=== PATIENT | female | born 1985 | race Caucasian/White ===

== ENCOUNTER 2017-11-12 17:10 | Emergency (ER) | payer MEDICAID, SELFPAY ==
[2017-11-12 17:11] VITALS: BP 165/116; PULSE 99; RESP 16; TEMP 37.1; O2SAT 95; BMI 60.7
[2017-11-12 17:39] LABS: Bacteria 0 SEEN /hpf (None Seen); Mucous, Urine 0 SEEN /hpf (<or=2+); Red Blood Cells-Urine 0 SEEN /hpf (0-5); White Blood Cells 0 SEEN /hpf (0-5)
[2017-11-12 17:40] LABS: Color, Urine Yellow (Yellow); Glucose, Dipstick Normal (Normal); Ketone-Dipstick Negative (Negative); Leukocyte Esterase-Dipstick Negative /ul (Negative); Nitrite-Dipstick Negative (Negative); Occult Blood-Urine Negative /ul (Negative); Protein-Dipstick Negative (Negative); Specific Gravity, Urine 1.015 (1.002-1.030); Urine Bilirubin Dipstick Negative (Negative); Urine Clarity Cloudy (Clear); Urine Urobilinogen Normal (Normal)
[2017-11-12 17:43] LABS: Absolute Lymphocyte Count 1.75 X10^3/ul (0.83-4.51); Basophil# 0.04 X10^3/uL; Basophil% 0.3 % (0-1); Eosinophil# 0.19 X10^3/uL; Eosinophils% 1.4 % (0-5); Hematocrit 44.3 % (37-47); Hemoglobin 14.9 g/dl (12.0-15.0); Lymphocyte # 1.75 X10^3/ul (4.0); Lymphocyte % 12.9 % (19-41); Mean Corp Hgb Conc 33.6 g/gl (32-36); Mean Corpuscular Hgb 28.8 pg (27.0-32.0); Mean Corpuscular Volume 85.7 fL (81-99); Mean Platelet Vol. 10.4 fl (6.2-12.0); Monocyte# 0.64 X10^3/uL; Monocyte% 4.7 % (0-10); Neutrophil # 10.95 X10^3/uL (2.7-7.7); Neutrophil % 80.5 % (47-70); Platelet Count 273 K/mm3 (150-450); RBC Distribution Width CV 13.3 % (11.6-14.6); Red Blood Count 5.17 M/mm3 (4.2-5.4); White Blood Count 13.6 K/mm3 (4.4-11.0)
[2017-11-12 17:45] LABS: POSITIVE COUNT NO; POSITIVE DIFFERENTIAL NO; POSITIVE MORPHOLOGY NO
[2017-11-12 17:53] LABS: Anion Gap 9 (5-15); BUN 12 mg/dL (7-18); BUN/Creat Ratio 12.3 RATIO (10-20); Chloride 101 mmol/L (98-107); Creatinine, Serum 0.98 mg/dL (0.55-1.02); EST Glomerular Filtration Rate 71 mL/min (>60); Est Glom Filt Rate - Afr Amer 86 mL/min (>60); Estimated Creatinine Clearance 66.39 ml/min; Glucose 125 mg/dL (74-106); Potassium 3.9 mmol/L (3.5-5.1); Sodium Level 139 mmol/L (136-145)
[2017-11-12 18:06] LABS: Pregnancy, Serum, hCG Quali. NEGATIVE Negative (0-9 Nonpreg)
[2017-11-12 18:10] LABS: Amorphous Sediment 3+ PHOS; Squamous Epithelial Cells - UA 10-25 SEEN /hpf (5-10)
--- NOTE | 2017-11-12 18:13 | CT_ITS ---
STUDY: CT ABDOMEN AND PELVIS WITH CONTRAST REASON FOR EXAM: Female, 32 years old. Right-sided abdominal pain RADIATION DOSAGE (If Supplied By Facility): CTDIvol = ( 20.40 ) mGy, DLP = ( 1328.21 ) mGycm TECHNIQUE: Transaxial images were obtained from the dome of the diaphragm to the symphysis pubis without oral contrast. 100ml ml of Isovue 300 contrast was administered. Sagittal and coronal images were reconstructed. Individualized dose optimization techniques were used for this CT. COMPARISON: December 10, 2012 FINDINGS: The visualized lung bases are unremarkable. The visualized portions of the heart are within normal limits. Normal liver. Normal gallbladder and extrahepatic biliary system. Normal spleen. Normal pancreas. Normal bilateral adrenal glands. Normal right kidney. Normal left kidney. Normal visualized stomach. Normal small intestine. Normal colon. The appendix is visualized and appears normal. Oral contrast noted within the small bowel. Normal abdominal aorta. Normal inferior vena cava. Normal retroperitoneum. Normal urinary bladder. Uterus normal. 3.2 cm left adnexal cyst. Normal abdominal wall. Normal osseous structures. CT/Abdomen/Pelvis WITH Contrast IMPRESSION: Left adnexal cyst. Otherwise no acute disease. Electronically Signed: Cliff Kingsley MD at 20:28 EDT , Service support ,
[2017-11-12] MEDS: Ketorolac 30 MG/ML Syringe IV (18:27)
[2017-11-12] MEDS: 0.9% Normal Saline 1,000 ML 1000 ML IV (18:27)
[2017-11-12] MEDS: Ondansetron 4 MG/2 ML Vial IV (18:27)
[2017-11-12 18:41] LABS: AST(SGOT) 12 U/L (15-37); Alanine Aminotransfer ALT/SGPT 23 U/L (13-56); Albumin, Serum 2.9 g/dL (3.2-5.0); Alkaline Phosphatase 115 U/L (45-117); Bilirubin, Direct 0.08 mg/dL (0.00-0.30); Globulin 4.5 g/dL (2.2-4.2); Protein, Total 7.4 g/dL (6.4-8.2)
[2017-11-12 20:22] VITALS: BP 131/77; PULSE 89; RESP 16; O2SAT 97
--- NOTE | 2017-11-12 20:41 | ED.VISSUMM ---
- ER Visit Summary Date of Service: 11/12/17 Chief Complaint: Abdominal pain History of Present Illness: The patient is a [address] Ford. She reports that she has right-sided abdominal pain began this morning. Is gradually increasing. It is a sharp, burning pain. Is 10 at 10 worsening a 10 currently. Is worsened by movement and food periods relieved by nothing. She has been nausea and vomited twice. No blood or emesis. No diarrhea. Last bowel movement was today. No melena or hematochezia. No dysuria or frequency. Physical Examination: Vitals: Stable. Afebrile. General: Well-nourished and well-developed. Head: Normocephalic atraumatic. Neck: Supple, no lymphadenopathy. No JVD. Nontender. Cardiovascular: Regular rate and rhythm. No murmurs. Respiratory: No respiratory distress. Clear to auscultation bilaterally. Abdominal: Soft, mild tenderness palpation the right upper and right lower quadrants, nondistended, normal bowel sounds. No guarding, rebound, or peritoneal signs. Back: Nontender. Extremities: Nontender, no edema. Skin: Normal color, no rash. Neurologic: Alert and oriented ?3. Cranial nerves II through XII are intact. Normal strength and sensation. Psych: Normal affect. Test Results: CBC is marked for white count of 13.6 with 81 segmented neutrophils and 13 lymphocytes. Chem-7 is more for glucose 125. LFTs marked for an AST of 12. Albumin is 2.9 globulin is 4.5. UA is negative. Parents test is negative. CT abdomen pelvis. IV contrast shows a normal appendix. She does have a 3.2 cm left adnexal cyst. However, her pain is on the right. Emergency Department Course and Treatment: Patient was treated with Toradol and Zofran IV. She is resting comfortably. Treatment Plan: Patient be discharged with Zofran and Bentyl. Instructed follow-up Dr. Ford as previously scheduled. Disposition: To home in improved and stable condition. Impression: 1. Abdominal pain, uncertain cause. This note was generated with [employer] software. It may contain incorrect words, spelling, and punctuation that were not noted in review of the chart prior to signing ED Disposition - Plan for ED Patient: Disposition: Home or Assisted Living Chief Complaint: Abd Pain Instructions: ED Abdominal Pain Unkn Cause Prescriptions: Ondansetron [Zofran Odt] 4 mg PO Q8H PRN PRN #10 tablet PRN Reason: Nausea Dicyclomine HCl [Bentyl] 20 mg PO TIDAC #20 capsule Referrals: Misbah Ford DO [Primary Care Provider] - 1-2 Days if not improving
[2017-11-12 20:56] VITALS: BP 129/77; PULSE 83; RESP 16; O2SAT 97
== END 2017-11-12 20:57 | disposition home or self-care (01) ==
LOC: ED 18:29
PROVIDERS: Emergency Provider Emergency Medicine; Family Provider Student in an Organized Health Care Education/Training Program; PCP Student in an Organized Health Care Education/Training Program
DX: R10.11 Right upper quadrant pain (principal); R10.31 Right lower quadrant pain; N83.202 Unspecified ovarian cyst, left side; M79.7 Fibromyalgia; M19.90 Unspecified osteoarthritis, unspecified site; Z79.51 Long term (current) use of inhaled steroids; Z79.899 Other long term (current) drug therapy
CPT/HCPCS: 74177; 80048; 80076; 81001; 84703; 85025; 96361; 96374; 96375; 99283; J7030; Q9967; A4216; J2405

== ENCOUNTER → 2017-11-19 08:43 | Outpatient (CLI) | payer MEDICAID, SELFPAY ==
--- NOTE | 2017-11-19 08:45 | RAD_ITS ---
STUDY: AIR-CONTRAST UPPER JUST SERIES AND SMALL BOWEL FOLLOW-THROUGH. REASON FOR EXAM: Female, 32 years old. Abdominal pain with nausea. FLUOROSCOPY TIME (if supplied): (1:44) minutes/seconds TECHNIQUE: The patient ingested barium. Multiple images of the esophagus, stomach and duodenum were obtained. Following this, a small bowel follow-through examination was performed. COMPARISON: None. FINDINGS: The esophagus is unremarkable. There is no evidence of gastroesophageal reflux. No mass lesion is seen. The stomach and duodenum are unremarkable. A small bowel follow-through examination was performed. There is no evidence of intrinsic or extrinsic small bowel disease. The terminal ileum is unremarkable. RAD/Upper GI/w Small Bowel IMPRESSION: Unremarkable upper GI series and small bowel follow-through examination. Electronically Signed: Christophe Driscoll MD at 15:49 EDT Tel [phone], Service support ,
== END ==
PROVIDERS: Family Provider Student in an Organized Health Care Education/Training Program; PCP Student in an Organized Health Care Education/Training Program; Visit Provider Student in an Organized Health Care Education/Training Program
DX: K21.0 Gastro-esophageal reflux disease with esophagitis (principal); R10.13 Epigastric pain; R11.0 Nausea
CPT/HCPCS: 74249

== ENCOUNTER 2018-08-15 15:20 | Emergency (ER) | payer MEDICAID, SELFPAY ==
[2018-07-21 17:09] VITALS: BMI 60.7
[2018-08-15 15:22] VITALS: BP 161/101; PULSE 91; RESP 18; TEMP 36.8; O2SAT 98; BMI 64.0
[2018-08-15 16:12] LABS: Mucous, Urine 0 SEEN /hpf (<or=2+); Red Blood Cells-Urine 0 SEEN /hpf (0-5)
--- NOTE | 2018-08-15 16:25 | CT_ITS ---
STUDY: CT ABDOMEN AND PELVIS WITHOUT CONTRAST REASON FOR EXAM: Female, 33 years old. Left flank pain RADIATION DOSAGE (If Supplied By Facility): CTDIvol = ( 24.18 ) mGy, DLP = ( 1316.88 ) mGycm TECHNIQUE: Transaxial images were obtained from the dome of the diaphragm to the symphysis pubis without oral contrast, and without intravenous contrast. Sagittal and coronal images were reconstructed. Individualized dose optimization techniques were used for this CT. COMPARISON: November 12, 2017. FINDINGS: The visualized lung bases are unremarkable. The visualized portions of the heart are within normal limits. Normal liver. Nonvisualization of the gallbladder. No dilatation of the extrahepatic biliary system. Normal spleen. Normal pancreas. Normal bilateral adrenal glands. Normal right kidney. Punctate stone in the left kidney. Normal visualized stomach. Normal small intestine. Normal colon. The appendix is visualized and appears normal. Normal abdominal aorta. Normal inferior vena cava. Normal retroperitoneum. Normal urinary bladder. Possible 1 cm left ovarian cystic lesion. Normal abdominal wall. Normal osseous structures. CT/Abdomen/Pelvis without Cont IMPRESSION: Nonobstructive punctate left renal stone. Possible 1 cm left ovarian cystic nodule. Electronically Signed: Sebastian Carlisle DO at 18:17 EST Tel [phone], Service support ,
--- NOTE | 2018-08-15 16:27 | ED.DCSUM_ITS ---
- ER Visit Summary Date of Service: 08/15/18 Chief Complaint: Abdominal pain History of Present Illness: The patient is a 33 F who has had 15 days of intermittent abdominal pain. She describes sharp pains in her right abdomen that radiates over to the left. The pain is now diffuse. Nothing seems to make this pain better or worse. She has had nausea and vomiting for the past couple of days. She denies diarrhea or constipation. She states she does have dysuria. She saw her PCP who did a urinalysis and they said she had blood when the culture came back they told her that she needed no medications. She took nothing for the pain today. She does have a history of kidney stones. Physical Examination: Vital signs reviewed. HEENT exam unremarkable. Heart is regular rate and rhythm without murmurs. Lungs are clear to auscultation. Abdomen is soft with diffuse tenderness. There is no guarding or rebound tenderness. Extremities reveal no edema. Skin exam normal. Neurologic exam normal. Test Results: Laboratory studies unremarkable except for glucose of 112. Urinalysis is negative for infection or blood. HCG negative. CAT scan of the abdomen and pelvis reveals a punctate left renal stone with a small left ovarian cyst. Emergency Department Course and Treatment: Patient was medicated with Toradol and Zofran. Her pain is better but she is still feeling nauseous. I will give her Phenergan. I do not feel that this is a kidney stone causing her pain. Her pain is more general. I will give her Bentyl and Phenergan for home. She will need to follow-up with her PCP Treatment Plan: [] Disposition: Discharge Impression: Abdominal pain This note was generated with [employer] dictation software. It may contain incorrect words, spelling, and punctuation that were not noted in review of the chart prior to signing ED Disposition - Plan for ED Patient: Referrals: Misbah Ford DO [Primary Care Provider] -
[2018-08-15 16:34] LABS: Color, Urine Yellow (Yellow); Glucose, Dipstick Normal (Normal); Ketone-Dipstick Negative (Negative); Leukocyte Esterase-Dipstick 25 /ul (Negative); Nitrite-Dipstick Negative (Negative); Occult Blood-Urine 50 /ul (Negative); Protein-Dipstick 15 mg/dl (Negative); Urine Bilirubin Dipstick Negative (Negative); Urine Clarity Clear (Clear); Urine Urobilinogen Normal (Normal)
[2018-08-15] MEDS: 0.9% Normal Saline 1,000 ML 999 ML IV (16:45)
[2018-08-15] MEDS: Ketorolac 30 MG/ML Syringe IV (16:45)
[2018-08-15] MEDS: Ondansetron 4 MG/2 ML Vial IV (16:45)
[2018-08-15 16:47] LABS: Squamous Epithelial Cells - UA 5-10 SEEN /hpf (5-10); White Blood Cells 5-10 SEEN /hpf (0-5)
[2018-08-15 16:48] LABS: Amorphous Sediment 2+; Bacteria 1+ /hpf (None Seen)
[2018-08-15 17:13] LABS: Absolute Lymphocyte Count 2.55 X10^3/ul (0.83-4.51); Basophil# 0.05 X10^3/uL; Basophil% 0.5 % (0-1); Eosinophil# 0.16 X10^3/uL; Eosinophils% 1.6 % (0-5); Hematocrit 44.6 % (37-47); Hemoglobin 14.8 g/dl (12.0-15.0); Lymphocyte # 2.55 X10^3/ul (4.0); Lymphocyte % 24.8 % (19-41); Mean Corp Hgb Conc 33.2 g/gl (32-36); Mean Corpuscular Hgb 28.5 pg (27.0-32.0); Mean Corpuscular Volume 85.9 fL (81-99); Mean Platelet Vol. 10.9 fl (6.2-12.0); Monocyte# 0.45 X10^3/uL; Monocyte% 4.4 % (0-10); Neutrophil # 7.04 X10^3/uL (2.7-7.7); Neutrophil % 68.5 % (47-70); Platelet Count 261 K/mm3 (150-450); RBC Distribution Width CV 13.7 % (11.6-14.6); RBC Distribution Width SD 42.9 fl (35.1-43.9); Red Blood Count 5.19 M/mm3 (4.2-5.4); White Blood Count 10.3 K/mm3 (4.4-11.0)
[2018-08-15 17:19] LABS: POSITIVE COUNT NO; POSITIVE DIFFERENTIAL NO; POSITIVE MORPHOLOGY NO
[2018-08-15 17:24] LABS: AST(SGOT) 18 U/L (15-37); Alanine Aminotransfer ALT/SGPT 36 U/L (13-56); Albumin, Serum 3.3 g/dL (3.2-5.0); Alkaline Phosphatase 116 U/L (45-117); Anion Gap 8 (5-15); BUN 10 mg/dL (7-18); BUN/Creat Ratio 11.1 RATIO (10-20); Bilirubin, Direct 0.16 mg/dL (0.00-0.30); Calcium,Total 8.8 mg/dL (8.5-10.1); Chloride 104 mmol/L (98-107); EST Glomerular Filtration Rate 77 mL/min (>60); Est Glom Filt Rate - Afr Amer 93 mL/min (>60); Estimated Creatinine Clearance 71.63 ml/min; Globulin 4.5 g/dL (2.2-4.2); Glucose 112 mg/dL (74-106); Lipase 91 U/L (73-393); Potassium 3.8 mmol/L (3.5-5.1); Protein, Total 7.8 g/dL (6.4-8.2); Sodium Level 140 mmol/L (136-145)
[2018-08-15 17:42] LABS: Pregnancy, Serum, hCG Quali. NEGATIVE Negative (0-9 Nonpreg)
--- NOTE | 2018-08-15 18:31 | ED.DEP ---
ED Disposition - Plan for ED Patient: Disposition: Home or Assisted Living Instructions: ED Abdominal Pain Unkn Cause Prescriptions: proMETHazine tablet [Phenergan] 25 mg PO Q6H PRN PRN #10 tab PRN Reason: Nausea Dicyclomine HCl [Bentyl] 20 mg PO TIDAC #20 cap Referrals: Misbah Ford DO [Primary Care Provider] -
[2018-08-15] MEDS: proMETHazine 25 MG/ML Syringe 12.5 MG IV (19:03)
[2018-08-15 19:07] VITALS: BP 117/72; PULSE 72; RESP 16; O2SAT 94
== END 2018-08-15 19:17 | disposition home or self-care (01) ==
PROVIDERS: Emergency Provider Emergency Medicine; Family Provider Student in an Organized Health Care Education/Training Program; PCP Student in an Organized Health Care Education/Training Program
DX: R10.84 Generalized abdominal pain (principal); Z87.442 Personal history of urinary calculi; Z79.84 Long term (current) use of oral hypoglycemic drugs; Z79.899 Other long term (current) drug therapy
CPT/HCPCS: 74176; 80048; 80076; 81001; 83690; 84703; 85025; 96361; 96374; 96375; 99283; J7030; A4216; J2405

== ENCOUNTER → 2018-09-22 17:07 | Outpatient (CLI) | payer MEDICAID, SELFPAY ==
[2018-09-22 15:30] VITALS: BMI 64.0
[2018-09-26 17:01] LABS: HPV APTIMA, High Risk Negative (Negative)
== END ==
PROVIDERS: Family Provider Student in an Organized Health Care Education/Training Program; PCP Student in an Organized Health Care Education/Training Program; Referring Provider Obstetrics & Gynecology; Visit Provider Obstetrics & Gynecology
DX: Z12.4 Encounter for screening for malignant neoplasm of cervix (principal)
CPT/HCPCS: 87624; 88175; G0145

== ENCOUNTER 2018-10-17 16:49 | Emergency (ER) | payer MEDICAID, SELFPAY ==
[2018-09-22 15:30] VITALS: BMI 64.0
[2018-10-17 16:50] VITALS: BP 152/110; PULSE 118; RESP 20; TEMP 36.9; O2SAT 98; BMI 63.8
--- NOTE | 2018-10-17 16:59 | ED.RN ---
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 STATES SHE DIDN'T TAKE HER BENTYL OR PHENERGAN OR ANY OTHER MEDS THAT SHE HAD AT HOME.
--- NOTE | 2018-10-17 17:11 | CT_ITS ---
STUDY: CT ABDOMEN AND PELVIS WITH CONTRAST REASON FOR EXAM: Female, 33 years old. Upper abdominal pain RADIATION DOSAGE (If Supplied By Facility): CTDIvol = ( 23.73 ) mGy, DLP = ( 1385.93 ) mGycm TECHNIQUE: Transaxial images were obtained from the dome of the diaphragm to the symphysis pubis with oral contrast. 100,ml IV/Oral Isovue 370 was administered. Sagittal and coronal images were reconstructed. Individualized dose optimization techniques were used for this CT. COMPARISON: 08/15/2018 FINDINGS: The visualized lung bases are unremarkable. The visualized portions of the heart are within normal limits. Normal liver. There is non-visualization of the gallbladder, which may be secondary to either contraction or a prior cholecystectomy. Normal spleen. Normal pancreas. Normal bilateral adrenal glands. Normal right kidney. Normal left kidney. There is a small hiatal hernia. Normal small intestine. Normal colon. The appendix is visualized and appears normal. Normal abdominal aorta. Normal inferior vena cava. Normal retroperitoneum. Normal urinary bladder. Normal visualized uterus. Normal abdominal wall. Normal osseous structures. CT/Abdomen/Pelvis WITH Contrast IMPRESSION: Normal enhanced CT of the abdomen and pelvis. Electronically Signed: Danny Cornejo DO at 19:14 EDT Tel , Service support ,
[2018-10-17] MEDS: Morphine 4 MG/ML Syringe IV (17:31)
[2018-10-17] MEDS: 0.9% Normal Saline 1,000 ML 125 ML IV (17:31)
[2018-10-17] MEDS: Ondansetron 4 MG/2 ML Vial IV (17:32)
[2018-10-17 17:53] LABS: Absolute Lymphocyte Count 2.34 X10^3/ul (0.83-4.51); Absolute Neutrophil Count 9.4 X10^3/uL (2.0-7.7); Basophil# 0.05 X10^3/uL; Basophil% 0.4 % (0-1); Eosinophils% 1.6 % (0-5); Hematocrit 44.4 % (37-47); Hemoglobin 14.8 g/dl (12.0-15.0); Lymphocyte # 2.34 X10^3/ul (4.0); Lymphocyte % 18.8 % (19-41); Mean Corp Hgb Conc 33.3 g/gl (32-36); Mean Corpuscular Hgb 27.9 pg (27.0-32.0); Mean Corpuscular Volume 83.6 fL (81-99); Mean Platelet Vol. 10.1 fl (6.2-12.0); Monocyte# 0.45 X10^3/uL; Monocyte% 3.6 % (0-10); Neutrophil % 75.4 % (47-70); POSITIVE COUNT NO; POSITIVE DIFFERENTIAL NO; POSITIVE MORPHOLOGY NO; Platelet Count 307 K/mm3 (150-450); RBC Distribution Width CV 13.7 % (11.6-14.6); RBC Distribution Width SD 41.7 fl (35.1-43.9); Red Blood Count 5.31 M/mm3 (4.2-5.4); White Blood Count 12.5 K/mm3 (4.4-11.0)
[2018-10-17 17:59] LABS: ALB/GLOB Ratio 0.7 RATIO (0.9-2.4); AST(SGOT) 23 U/L (15-37); Alanine Aminotransfer ALT/SGPT 33 U/L (13-56); Albumin, Serum 3.2 g/dL (3.2-5.0); Alkaline Phosphatase 122 U/L (45-117); Anion Gap 6 (5-15); BUN 10 mg/dL (7-18); BUN/Creat Ratio 11.1 RATIO (10-20); Calcium,Total 9.1 mg/dL (8.5-10.1); Chloride 102 mmol/L (98-107); EST Glomerular Filtration Rate 77 mL/min (>60); Est Glom Filt Rate - Afr Amer 93 mL/min (>60); Estimated Creatinine Clearance 71.63 ml/min; Globulin 4.6 g/dL (2.2-4.2); Glucose 157 mg/dL (74-106); Lipase 113 U/L (73-393); Potassium 3.8 mmol/L (3.5-5.1); Protein, Total 7.8 g/dL (6.4-8.2); Sodium Level 139 mmol/L (136-145)
--- NOTE | 2018-10-17 18:15 | ED.RN ---
LACTIC 3.[address] LAB[address] DR WYMAN AWARE
[2018-10-17 18:16] LABS: Lactic Acid 3.2 mmol/L (0.4-2.0)
[2018-10-17 18:20] LABS: Mucous, Urine 0 SEEN /hpf (<or=2+); White Blood Cells 0 SEEN /hpf (0-5)
[2018-10-17 18:43] VITALS: PULSE 98; TEMP 36.8; O2SAT 95
[2018-10-17 18:52] LABS: Color, Urine Yellow (Yellow); Glucose, Dipstick Normal (Normal); Ketone-Dipstick Negative (Negative); Leukocyte Esterase-Dipstick Negative /ul (Negative); Nitrite-Dipstick Negative (Negative); Occult Blood-Urine 250 /ul (Negative); Protein-Dipstick 15 mg/dl (Negative); Urine Bilirubin Dipstick Negative (Negative); Urine Clarity Cloudy (Clear); Urine Urobilinogen Normal (Normal)
[2018-10-17 18:58] LABS: Amorphous Sediment 1+; Bacteria 4+ /hpf (None Seen); Red Blood Cells-Urine 0-5 SEEN /hpf (0-5); Squamous Epithelial Cells - UA 10-25 SEEN /hpf (5-10)
--- NOTE | 2018-10-17 19:31 | ED.DEP ---
ED Disposition - Plan for ED Patient: Instructions: ED Abdominal Pain Unkn Cause Prescriptions: Hydrocodone Bitart/Apap 5-325 [Freeburn 5MG-325MG] 1 tab PO Q4H PRN PRN 2 Days #10 tab PRN Reason: Pain Referrals: Misbah Ford DO [Primary Care Provider] - 3-5 Days
--- NOTE | 2018-10-17 19:32 | ED.DCSUM_ITS ---
- ER Visit Summary Date of Service: 10/17/18 Chief Complaint: [Abdominal pain] History of Present Illness: The patient is a 33 F [presents the emergency department abdominal pain that started yesterday. Patient describes, like a belt sensation being wrapped around the front of the abdomen radiating through to her back. She rates her pain currently as a 10 out of 10. Patient complains of nausea but no vomiting. She denies diarrhea. She denies blood in her stool or black tarry stool. Patient denies urinary symptoms. She is tells me she had a fever up to 101 at home. Patient states that she was treated for urinary tract infection 2 weeks ago. Patient has a history of type 2 diabetes as well as fibromyalgia, osteoarthritis, kidney stones, and irritable bowel syndrome. Patient has had prior cholecystectomy and prior C-sections. She is had her right ovary removed, uterine ablation, and bilateral salpingectomy.] Physical Examination: [HEENT-PERRLA, EOMI. Cranial nerves II through XII grossly intact. TMs clear. Mucous membranes moist. No adenopathy. Cardiovascular-regular rate and rhythm without murmur or ectopy Lungs-clear to auscultation, chest wall stable without crepitus or subcu emphysema Abdomen-normoactive bowel sounds, soft. Patient has some diffuse tenderness palpation. There is no rebound, rigidity, cranial signs. Extremities-intact ?4, normal range of motion, normal pulses, atraumatic] Test Results: [CBC with differential obtained showed an elevated white blood cell count of 12.5, hemoglobin 14.8, hematocrit 44, platelets 307. Chemistries unremarkable. LFTs were normal. Lipase was 113. Urinalysis was normal. Lactate was elevated 3.2. CT scan of the abdomen pelvis with IV and p.o. contrast ordered was normal.] Emergency Department Course and Treatment: [Patient was given morphine and Zofran and a liter normal same fluid bolus followed by second liter.] Treatment Plan: [Patient advised to take her Bentyl at home and I will write her a prescription for [place] for severe pain for 2 days.] Disposition: [Discharged home in stable condition. Patient advised to return if worsening pain, vomiting, or condition should worsen anyway.] Impression: [Abdominal pain-etiology uncertain.] This note was generated with [employer] software. It may contain incorrect words, spelling, and punctuation that were not noted in review of the chart prior to signing ED Disposition - Plan for ED Patient: Referrals: Misbah Ford DO [Primary Care Provider] -
[2018-10-17] MEDS: 0.9% Normal Saline 1,000 ML 999 ML IV (19:43)
[2018-10-17 20:16] VITALS: BP 124/70; PULSE 89; RESP 16; O2SAT 98
[2018-10-17 21:26] LABS: Reflex Lactate? Y
== END 2018-10-17 20:18 | disposition home or self-care (01) ==
LOC: ED 17:25
PROVIDERS: Emergency Provider Emergency Medicine; Family Provider Student in an Organized Health Care Education/Training Program; PCP Student in an Organized Health Care Education/Training Program
DX: R10.84 Generalized abdominal pain (principal); E11.9 Type 2 diabetes mellitus without complications; M79.7 Fibromyalgia; M19.90 Unspecified osteoarthritis, unspecified site; Z87.440 Personal history of urinary (tract) infections; Z87.442 Personal history of urinary calculi; Z79.84 Long term (current) use of oral hypoglycemic drugs
CPT/HCPCS: 74177; 80053; 81001; 83605; 83690; 85025; 96361; 96374; 96375; 99283; J7030; Q9967; A4216; J2405

== ENCOUNTER 2018-11-18 08:29 | Day surgery (SDC) | payer MEDICAID, SELFPAY ==
[2018-11-18] VITALS (7 sets, daily range): BP systolic 108–117; BP diastolic 72–84; PULSE 78–86; RESP 16–18; TEMP 36.6–37.6; O2SAT 91–98; BMI 61.4
[2018-11-18 09:12] LABS: Internal QC Validated? YES +Cl - CLEAR BKGD
[2018-11-18 09:14] LABS: Pregnancy, Urine Negative Negative
--- NOTE | 2018-11-18 09:22 | PCM.DC.URO ---
Discharge Diet: No Restrictions Discharge Activity: Return to Normal Activity, May not drive while taking narcotic pain medications. Call your doctor if you observe: Fever of 101 or Higher, Inability to urinate, Inability to have a bowel movement, Shortness of breath, Chest pain, Calf discomfort, Uncontrolled pain Allergies/Adverse Reactions: Allergies cephalexin Allergy (Verified 11/17/18 13:32) Itching duloxetine [From Cymbalta] Adverse Reaction (Verified 11/17/18 13:32) Other fluoxetine [From Prozac] Adverse Reaction (Verified 11/17/18 13:32) HALLUCINATIONS Medications to take at Discharge Celecoxib [Celebrex] 100 mg PO BID 02/17/16 Cetirizine HCl [Zyrtec] 10 mg PO DAILY 02/17/16 Cyclobenzaprine [Flexeril] 10 mg PO TID PRN PRN 02/17/16 Lorazepam [Ativan] 0.5 mg PO BID PRN PRN 02/17/16 Sertraline HCl [Zoloft] 50 mg PO DAILY 02/17/16 buPROPion SR [Wellbutrin Sr] 150 mg PO BID 02/17/16 Cholecalciferol (Vitamin D3) [Vitamin D3] 2,000 unit PO DAILY 11/12/17 norgestimate 0.25 mg-ethinyl estradiol 35 mcg tablet 1 tab PO QDAY #28 tab 07/21/18 Dicyclomine HCl [Bentyl] 20 mg PO TIDAC 08/15/18 proMETHazine tablet [Phenergan] 25 mg PO Q6H PRN PRN #10 tab 08/15/18 Budesonide/Formoterol 160/4.5 [Symbicort 160/4.5 Mcg Inhaler (SP)] 2 puff INHALATION BID 11/17/18 Famotidine [Pepcid] 20 mg PO BID 11/17/18 Fesoterodine Fumarate [Toviaz] 4 mg PO DAILY 11/17/18 Rizatriptan Benzoate [Maxalt] 10 mg PO PRN PRN 11/17/18 traMADol [Ultram (G)] 50 mg PO Q6H PRN PRN 11/17/18 Amoxicillin 6.5 ml PO BID 11/18/18 Primary Care Physician: Misbah Ford DO [Primary Care Provider] - Test Results: Test results from this visit will be discussed in further detail at your follow-up appointment, if applicable. Please Follow Up With: Yarely Woody MD When: call for appt in 2-3 weeks Proposed Discharge Date: 11/18/18
--- NOTE | 2018-11-18 09:23 | PCM.OPRPT ---
Problem List (1) Urinary tract infection Status: Acute (2) Bladder pain Status: Acute (3) Urgency of urination Status: Acute (4) Frequency of urination Status: Acute Report of Operation Date of Procedure: 11/18/18 Pre-Operative Diagnosis: urinary tract infection, bladder pain, urinary frequency and urinary urgency. Post-Operative Diagnosis: same Surgery/Procedure Performed:: cystoscopy, pelvic exam under anesthesia, hydrodistention of bladder Description of Surgical Findings:: capacity 500cc. No glomerulations but diffuse injection. No prolapse. yeast infection of pannus Type of Anesthesia:: MAC Special Medications: cipro Description of Procedure: Patient is a 33-year-old female who presented to the office with complaints of chronic bladder pain, urinary tract infection, urinary urgency and frequency. After discussing the risk benefits and alternatives she agreed to proceed with evaluation under anesthesia with cystoscopy possible hydrodistention, possible bladder biopsy. Informed consent was obtained. Patient was taken to the operating room placed on the operating room table. Anesthesia monitored the head, neck, airway, IV access and vital signs throughout the case. Once anesthesia was a probably administered the patient was placed into dorsal lithotomy position was prepped and draped in usual sterile fashion. A cystourethroscopy was then performed under direct visualization. There was no abnormality of the urethra mucosa. The ureteral orifices bilaterally were located on the trigone in correct anatomic position. The bladder mucosa was visualized in its entirety. There is diffuse injection of the mucosa present but no ulceration, mass, erythema or foreign body identified. The bladder was then filled to capacity and let sit for 2 minutes. Capacity was measured at approximately 400 cc. There were no glomerulations but increased injection to the bladder mucosa. It was once again filled to capacity and let sit for 2 minutes. This was measured at 500 cc volume. Pelvic examination revealed no evidence of prolapse, mass or stool in the rectal vault. The pelvic floor musculature was normal to palpation. Of note there is a yeast infection of the pannus. The patient was then awakened and taken to the recovery room in good condition. There were no complications during this procedure. Grafts/Implants Used: none - Complications none - Admit VTE Documentation VTE Present on Admission: Yes VTE Mechan Device Prophylaxis: SCD's VTE Pharm Prophylaxis ordered?: No Reason prophylaxis not ordered:: Treatment Not Indicated
[2018-11-18 09:41] LABS: Bedside Glucose 166 mg/dL (70-110)
[2018-11-18] MEDS: Ciprofloxacin 400 MG/200 ML BAG 200 MG IV (10:03)
== END 2018-11-18 12:37 | disposition home or self-care (01) ==
LOC: SDC 08:30 → AC 08:31
PROVIDERS: Anesthesiology; Family Provider Student in an Organized Health Care Education/Training Program; PCP Student in an Organized Health Care Education/Training Program; Referring Provider Urology; Visit Provider Urology
PROC: 0T7B7ZZ Dilation of Bladder, Via Natural or Artificial Opening (ICD-10-PCS; CPT 52000; principal; 2018-11-18 10:05)
DX: R39.82 Chronic bladder pain (principal); N39.0 Urinary tract infection, site not specified; N39.46 Mixed incontinence; E11.9 Type 2 diabetes mellitus without complications; M79.7 Fibromyalgia; K21.9 Gastro-esophageal reflux disease without esophagitis; F41.9 Anxiety disorder, unspecified; F32.9 Major depressive disorder, single episode, unspecified; J45.909 Unspecified asthma, uncomplicated; Z87.442 Personal history of urinary calculi; Z87.891 Personal history of nicotine dependence; Z79.51 Long term (current) use of inhaled steroids; Z79.899 Other long term (current) drug therapy
CPT/HCPCS: 00910; 52000; 81025; 82962; J7120; J0744; J2405

== ENCOUNTER 2019-01-27 12:05 | Outpatient (RCR) | payer MEDICAID, SELFPAY ==
[2018-11-18 09:31] VITALS: BMI 61.4
== END 2019-01-27 23:59 | disposition home or self-care (01) ==
LOC: NS 12:05
PROVIDERS: Family Provider Student in an Organized Health Care Education/Training Program; PCP Student in an Organized Health Care Education/Training Program; Visit Provider Student in an Organized Health Care Education/Training Program
DX: E66.01 Morbid (severe) obesity due to excess calories (principal); E11.9 Type 2 diabetes mellitus without complications; Z71.3 Dietary counseling and surveillance
CPT/HCPCS: 97802

== ENCOUNTER 2019-02-05 20:13 | Emergency (ER) | payer MEDICAID, SELFPAY ==
[2018-11-18 09:31] VITALS: BMI 61.4
[2019-02-05 20:14] VITALS: BP 158/112; PULSE 90; RESP 18; TEMP 36.6; O2SAT 96; BMI 61.6
--- NOTE | 2019-02-05 20:37 | ED.DCSUM_ITS ---
History of Present Illness Chief Complaint: Lower Extremity Injury Informant: Patient Occurred: Today Mechanism/Context: - - Severe pain Onset: Today Timing: Continuous Location: Lateral right ankle Current Severity: Mild Maximum Severity: Severe Worsened by: Weightbearing Relieved by: Nothing Associated Symptoms: Negative for: Parasthesia, Weakness, Loss of Funtion Narrative: Patient is a 33-year-old woman with prior history of multiple right ankle sprains who presents with apparent injury to her right ankle. She localizes pain posterior lateral malleolus. She denies paresthesia, anesthesia motor weakness. She has no other complaints. Prior similar symptoms: Yes Recent Illness/Hospitalization: No - Past Medical History (1) Bladder pain Status: Acute (2) Urgency of urination Status: Acute Past Medical History - Allergies and Home Meds Allergies/Adverse Reactions: Allergies cephalexin Allergy (Verified 02/05/19 20:16) Itching duloxetine [From Cymbalta] Adverse Reaction (Verified 02/05/19 20:16) Other fluoxetine [From Prozac] Adverse Reaction (Verified 02/05/19 20:16) HALLUCINATIONS Primary Care Physician: Misbah Ford DO [Primary Care Provider] - 10-14 Days if not better Prior records reviewed: Yes Lives: Spouse/ Significant Other, With Family Smoking Status: Former smoker Alcohol: None Drugs: None Review of Systems General: Denies: Chills, Fever, Malaise, Subjective, Sweats, Weight loss Musculoskeletal: Reports: Extremity Pain. Denies: Myalgias, Arthralgias, Neck pain, Back pain, Swelling Skin: Denies: Rash, Abrasions, Wounds Neurological: Denies: Weakness, Parasthesia, Numbness Hematologic: Denies: Easy bruising, Easy bleeding Physical Exam Vital Signs/Narrative: Vital Signs Temp Pulse Resp BP Pulse Ox 02/05/19 20:14 97.9 F 90 18 158/112 H 96 Inital Vital Signs reviewed: Yes - Extremity Exam Right Tib fib: Negative for: Abrasion, Contusion, Deformity, Edema, Hematoma, Limited ROM, - Right Ankle: Limited ROM - There is pain palpation posterior distal lateral malleolus. There may be slight swelling. There is no laxity with drawer testing. DP and PT pulses are palpable. There is no pain to palpation base of the fifth metatarsal. Negative for: Abrasion, Contusion, Deformity, Edema, Hematoma, - Right Foot: Negative for: Abrasion, Contusion, Deformity, Edema, Hematoma, Limited ROM, - Right Toe: Negative for: Abrasion, Contusion, Deformity, Edema, Hematoma, Limited ROM, - General: Well nourished, Well developed, Obese, Unkempt Head: Normocephalic, Atraumatic Eyes: Perrl, EOMI. Negative for: Pale conjunctiva, Scleral icterus, - ENT: No Trauma, Moist Mucous Membranes Cardiovascular: Regular rate, Regular rhythm Respiratory: No distress Back: Negative SLR - Left Skin: Normal color, No rash, No Trauma. Negative for: Cyanosis, Diaphoresis, Jaundice Neurological: Alert, Oriented x3, Cranial nerves II-XII grossly intact, Normal Strength, Normal Sensation. Negative for: Normal Gait Psychological: Normal affect Diagnostic/Tx/Re-eval Chest X-Ray - ED: Read by ED Physician, - - Three-view x-ray of the right ankle reveals soft tissue swelling over the lateral malleolus. There is no evidence of fracture, subluxation or dislocation. There is no fracture of the base of the fifth metatarsal. - Medical Decision Making Review x-ray of the ankle was obtained to evaluate for fracture versus sprain. Patient was treated for ankle sprain. Patient was treated with NSAIDs since there is no evidence of renal dysfunction ED Disposition - Plan for ED Patient: Disposition: Home or Assisted Living Diagnosis: Sprain of other ligament of right ankle, initial encounter Instructions: Sprain, Ankle, with X-Ray Prescriptions: Naproxen [Naprosyn] 500 mg PO BID #10 tab Transmission Status: Pending to [id number] Referrals: Misbah Ford DO [Primary Care Provider] - 10-14 Days if not better Additional Instructions: Your prescription was electronically transmitted to [facility] located on [facility].
--- NOTE | 2019-02-05 20:52 | RAD_ITS ---
STUDY: X-RAY - RIGHT ANKLE REASON FOR EXAM: Female, 33 years old. Injury TECHNIQUE: 3 view(s) of the ankle. COMPARISON: None. FINDINGS: Normal visualized distal tibia and fibula. Normal medial and lateral malleoli. Normal tibiotalar articulation and ankle mortise. Normal visualized talus. Plantar calcaneal spur and posterior enthesophyte The visualized subtalar, talonavicular, calcaneocuboid and tarsal articulations are normal. Soft tissue swelling overlying the lateral and medial malleolus RAD/Ankle min 3 Views IMPRESSION: Bimalleolar sprain. No evidence for acute fracture. Electronically Signed: Jadiel Grossman MD at 21:34 EDT , Service support ,
[2019-02-05] MEDS: HYDROcodone Bitartrate/Apap 5/325 Tablet PO (20:57)
== END 2019-02-05 22:43 | disposition home or self-care (01) ==
PROVIDERS: Emergency Provider Emergency Medicine; Family Provider Student in an Organized Health Care Education/Training Program; PCP Student in an Organized Health Care Education/Training Program
DX: S93.491A Sprain of other ligament of right ankle, initial encounter (principal); X58.XXXA Exposure to other specified factors, initial encounter; Y93.9 Activity, unspecified; Z87.891 Personal history of nicotine dependence
CPT/HCPCS: 73610; 99283

== ENCOUNTER → 2019-04-06 | Outpatient (CLI) | payer MEDICAID, SELFPAY ==
[2019-04-06 13:52] VITALS: BMI 61.6
[2019-04-06 16:48] LABS: Estradiol 54.8 pg/mL; Follicle Stimulating Hormone 5.3 mIU/mL; Prolactin 10.7 ng/mL; Thyroid Stim Hormone (TSH) 1.58 uIU/mL (0.358-3.74)
[2019-04-09 03:06] LABS: DHEA Sulfate 205.8 ug/dL (84.8-378.0)
[2019-04-09 13:06] LABS: Testosterone Free 2.8 pg/mL (0.0-4.2)
== END | disposition home or self-care (01) ==
LOC: LAB 14:03
PROVIDERS: Family Provider Student in an Organized Health Care Education/Training Program; PCP Student in an Organized Health Care Education/Training Program; Referring Provider Obstetrics & Gynecology; Visit Provider Obstetrics & Gynecology
DX: N95.1 Menopausal and female climacteric states (principal)
CPT/HCPCS: 36415; 82627; 82670; 83001; 84146; 84402; 84439; 84443; 82626

== ENCOUNTER → 2019-09-07 11:10 | Outpatient (CLI) | payer OTHER, MEDICAID, SELFPAY ==
[2019-09-02 08:53] VITALS: BMI 61.6
--- NOTE | 2019-09-07 11:11 | US_ITS ---
PROCEDURE: ULTRASOUND OF THE FEMALE PELVIS REASON FOR EXAM: Female, 34 years old. PELVIC PAIN-PATIENT HAS BEEN BLEEDING FOR 3 WEEKS HX OF PCOS RT OOPHORECTOMY 2008 HX OF ENDO OBLATION 2011 TECHNIQUE: Transvaginal TECHNICAL QUALITY: Adequate. COMPARISON: CT of abdomen and pelvis dated October 17, 2018 FINDINGS: The uterus is anteverted and is in a midline position. The uterus measures 9.2 x 5.2 x 4.3 cm. There is no demonstrated myometrial mass. The endometrium measures 9 mm in thickness, and is hyperechoic. There is no demonstrated endometrial mass. Several nabothian cysts are present, the largest measuring 2 cm. The right ovary is non-visualized. Reported right oophorectomy. There is no visualized right adnexal mass or complex lesion. The left ovary is visualized. The left ovary measures 4.0 x 3.5 x 2.5 cm. A small ovarian cyst is present measuring 3.0 x 2.9 cm. There is no visualized left adnexal mass or complex lesion. Normal color vascular flow and Doppler signal is demonstrated in both ovaries. There is no fluid in the cul-de-sac. US/Transvaginal Non- IMPRESSION: 3 cm simple left ovarian cyst. Electronically Signed: Samuel Mondragon MD at 15:20 EDT , Service support ,
--- NOTE | 2019-09-07 11:11 | US_ITS ---
PROCEDURE: ULTRASOUND OF THE FEMALE PELVIS REASON FOR EXAM: Female, 34 years old. PELVIC PAIN-PATIENT HAS BEEN BLEEDING FOR 3 WEEKS HX OF PCOS RT OOPHORECTOMY 2008 HX OF ENDO OBLATION 2011 TECHNIQUE: Transvaginal TECHNICAL QUALITY: Adequate. COMPARISON: CT of abdomen and pelvis dated October 17, 2018 FINDINGS: The uterus is anteverted and is in a midline position. The uterus measures 9.2 x 5.2 x 4.3 cm. There is no demonstrated myometrial mass. The endometrium measures 9 mm in thickness, and is hyperechoic. There is no demonstrated endometrial mass. Several nabothian cysts are present, the largest measuring 2 cm. The right ovary is non-visualized. Reported right oophorectomy. There is no visualized right adnexal mass or complex lesion. The left ovary is visualized. The left ovary measures 4.0 x 3.5 x 2.5 cm. A small ovarian cyst is present measuring 3.0 x 2.9 cm. There is no visualized left adnexal mass or complex lesion. Normal color vascular flow and Doppler signal is demonstrated in both ovaries. There is no fluid in the cul-de-sac. US/Pelvic (Non ) IMPRESSION: 3 cm simple left ovarian cyst. Electronically Signed: Samuel Mondragon MD at 15:20 EDT , Service support ,
== END ==
PROVIDERS: PCP Student in an Organized Health Care Education/Training Program; Referring Provider Nurse Practitioner Women's Health; Visit Provider Nurse Practitioner Women's Health
DX: R10.2 Pelvic and perineal pain (principal)
CPT/HCPCS: 76830; 76856; 93976

== ENCOUNTER 2019-10-27 12:02 | Observation (INO) | payer OTHER, MEDICAID, SELFPAY ==
[2019-10-07 10:57] VITALS: BMI 61.6
[2019-10-27] VITALS (13 sets, daily range): BP systolic 115–164; BP diastolic 70–126; PULSE 80–101; RESP 14–24; TEMP 36.5–37.2; O2SAT 93–100; BMI 60.5; BMI 60.8
--- NOTE | 2019-10-27 | HYST_PTH ---
PATIENT: UCHE BRAVO LOC: MS3 U#:[id number] AGE/SX: 34/F ROOM: NC304 RE10/27/[address]: Dr. Rebecca Mehta MD : 1985 BED: 1 DIS: 10/28/2019 SPEC #: [id number] RECD: 10/27/19 12:30 STATUS: VIVIEN REAnthony #: [id number] KATARZYNA: 10/27/19 00:[address]: Rebecca Mehta DEPT: SURGICAL PATHOLOGY RECD BY: Melvin Truong ENTERED: 10/27/19 12:30 SP TYPE: HYSTERECT OTHR DR: Dr. Misbah Ford DO Tissues: Uterus, NOS Procedures: Surgery Specimen Level V HEADER OPERATION: ERAS, laparoscopic vaginal hysterectomy, left salpingectomy PRE-OP DIAGNOSIS: Dysmenorrhea; menorrhagia; UTI TISSUE SUBMITTED: Uterus, left fallopian tube MICROSCOPIC DIAGNOSIS Uterus, hysterectomy: Cervix - squamous metaplasia and nabothian cysts and mild chronic inflammation. Endometrium - transition endometrium. Myometrium - adenomyosis and leiomyoma. Left fallopian tube - no pathologic change. AM:cynthia 10/28/19 MICROSCOPIC DESCRIPTION Slides are reviewed. GROSS DESCRIPTION Received in fixative is one container labeled with the patient's name and designated uterus and left fallopian tube. The specimen consists of a hysterectomy specimen consisting of uterus with cervix and detached fallopian tube in two pieces. The uterus with cervix weighs 130 gm and measures 11 x 7 x 4.5 cm. The serosal surface is denny, glistening. The ectocervical mucosa is unremarkable. The external os is circular in contour. The endocervical canal measures 3.5 cm in length and the endocervical mucosa is denny, glistening and unremarkable. The triangular endometrial cavity measures 5.5 cm in length and up to 1.5 cm in width. The endometrial cavity contains small amount of bloody fluid. The endometrium is denny, glistening without any mass lesion and measures 0.1 cm in thickness. Sections of the uterine wall reveal a cyst at the fundus measuring 2 cm in greatest dimension. The uterine wall measures up to 2.5 cm in thickness. A fallopian tube received in two pieces and measures 5.5 cm in length and 0.6 cm in diameter. The fimbrial end is identified and appears to be hemorrhagic. Sections do not reveal any mass lesion. Motor Bus Driver sections are submitted in nine cassettes as follows: 1 - anterior cervix, 2 - posterior cervix, 3 & 4 - anterior uterine wall, 5 & 6 - posterior uterine wall, 7 & 8 - cystic area at the fundus, 9 - left fallopian tube. / ROEL:cynthia 10/27/19 TC:5 CPT: 85808
[2019-10-27 06:58] LABS: Hemoglobin 13.7 g/dL (12.0-15.0); Mean Corp Hgb Conc 31.1 g/dL (32-36); Mean Corpuscular Hgb 26.8 pg (27.0-32.0); Mean Corpuscular Volume 85.9 fL (81-99); Mean Platelet Vol. 10.2 fl (6.2-12.0); Platelet Count 290 K/mm3 (150-450); RBC Distribution Width CV 13.6 % (11.6-14.6); RBC Distribution Width SD 42.6 fl (35.1-43.9); Red Blood Count 5.12 M/mm3 (4.2-5.4); White Blood Count 9.9 K/mm3 (4.4-11.0)
[2019-10-27 07:03] LABS: Internal QC Validated? YES +Cl - CLEAR BKGD; Pregnancy, Urine Negative Negative
[2019-10-27 07:13] LABS: Anion Gap 4 (5-15); BUN 11 mg/dL (7-18); BUN/Creat Ratio 12.1 RATIO (10-20); Calcium,Total 8.7 mg/dL (8.5-10.1); Chloride 101 mmol/L (98-107); Creatinine, Serum 0.91 mg/dL (0.55-1.02); EST Glomerular Filtration Rate 76 mL/min (>60); Est Glom Filt Rate - Afr Amer 92 mL/min (>60); Glucose 284 mg/dL (74-106); Magnesium 1.9 mg/dL (1.6-2.6); Potassium 3.7 mmol/L (3.5-5.1); Sodium Level 135 mmol/L (136-145)
[2019-10-27] MEDS: Lactated Ringers 1,000 ML 40 ML IV (07:13)
[2019-10-27 07:15] LABS: Bedside Glucose 237 mg/dL (70-110)
[2019-10-27] MEDS: Acetaminophen 500 MG Tablet 1000 MG PO ×4 (07:15→23:54)
[2019-10-27] MEDS: Phenazopyridine 95 MG Tablet 190 MG PO (07:16)
[2019-10-27] MEDS: Celecoxib 200 MG Capsule 400 MG PO (07:17)
[2019-10-27] MEDS: Enoxaparin 40 MG/0.4 ML Syringe SC (07:18)
[2019-10-27] MEDS: Scopolamine 1mg/72hr Patch 1 PATCH TRANSDERM. (07:20)
[2019-10-27] MEDS: dexAMETHasone 10 MG/ML Vial 8 MG IV (07:31)
[2019-10-27] MEDS: Magnesium Sulfate 4gm/100mL 4 GM/100 ML IV.SOLN. IV (07:33)
[2019-10-27 07:36] LABS: Hemoglobin A1c 7.4 % (4.2-6.3)
--- NOTE | 2019-10-27 07:45 | HP.PCM_ITS ---
Problem List (1) Dysmenorrhea Status: Acute Comment: Possible post ablation syndrome, ultram PRN (2) Menorrhagia with irregular cycle Status: Acute Comment: US, sebastian, consult [facility] cysto Dr. Mehta (3) Climacteric Status: Acute Comment: lab evaluation, may need adjustment to zoloft History of Present Illness Date of Admission: 10/27/19 The patient is a 34 year old F with a history of endometrial ablation, bilateral salpingectomy and right oophorectomy presents for laparoscopic-assisted vaginal hysterectomy due to chronic pelvic pain and recurrent abnormal bleeding. Patient is failed management with Megace hormone and has had persistent bleeding and pain and therefore the decision was made to proceed with hysterectomy. Past Medical History Medical History: Medical History (Last Updated 10/07/19 @ 10:[address] Rebecca Mehta MD) Anxiety and depression F41.9, F32.9 Asthma J45.909 Diabetes E11.[address] archibald. Endometriosis N80.9 Migraine G43.909 PCOS (polycystic ovarian syndrome) E28.2 Interstitial cystitis N30.10 Allergies cephalexin Allergy (Verified 10/23/19 09:01) Itching duloxetine [From Cymbalta] Adverse Reaction (Verified 10/23/19 09:01) Other fluoxetine [From Prozac] Adverse Reaction (Verified 10/23/19 09:01) HALLUCINATIONS Home Medications: Ambulatory Orders Medication Instructions Recorded Celecoxib [Celebrex] 100 mg PO BID 02/17/16 Lorazepam [Ativan] 0.5 mg PO BID PRN PRN 02/17/16 buPROPion SR [Wellbutrin SR (150mg 150 mg PO BID 02/17/16 tablets)] Cholecalciferol (Vitamin D3) 5,000 unit PO DAILY 11/12/17 [Vitamin D3] Dicyclomine HCl [Bentyl] 20 mg PO DAILY 08/15/18 Budesonide/Formoterol 160/4.5 2 puff INHALATION BID PRN 11/17/18 [Symbicort 160/4.5 Mcg Inhaler (SP)] Rizatriptan Benzoate [Maxalt] 10 mg PO PRN PRN 11/17/18 fesoterodine 4 mg tablet,extended 4 mg PO DAILY 09/02/19 release 24 hr ondansetron 4 mg disintegrating 4 mg PO Q4H PRN #60 tab 09/02/19 tablet cyclobenzaprine 10 mg tablet 10 mg PO TID PRN PRN #20 tab 09/03/19 tramadol 50 mg tablet 50 mg PO Q8H PRN #60 tab 09/07/19 Cetirizine HCl [Zyrtec] 10 mg PO DAILY 10/23/19 Nystatin Powder [Mycostatin Powder] 1 applic TOPICAL BID PRN 10/23/19 Sertraline HCl [Zoloft] 100 mg PO DAILY 10/23/19 Surgical History: Surgical History (Last Reviewed 09/02/19 @ 08:44 by Yessi Dasilva) delivery delivered O82 Encounter for Essure implantation Z30.2 removed 2012 History of right oophorectomy Z90.721 Hx of cholecystectomy Z90.49 uterine ablation 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 Smoking Status: Former smoker Tobacco Use: Non-smoker Review of Systems Constitutional: Denies: Fever, Malaise Eyes: Denies: Blurred vision, Vision Change HEENT: Denies: Head Aches, Visual Changes Cardiovascular: Denies: Chest Pain, Palpitations Respiratory: Denies: Cough, Shortness of Breath, Wheezing Gastrointestinal: Reports: Abdominal Pain. Denies: Diarrhea, Nausea, Vomiting Genitourinary: Denies: Dysuria, Hematuria Gynecological: Reports: Vaginal bleeding Musculoskeletal: Denies: Joint Pain, Muscle pain Skin: Denies: Lesions, Rash Neurological: Denies: Blurred vision, Focal weakness, Headaches Psychiatric: Denies: Anxiety, Depression Endocrine: Denies: Heat/ Cold Intolerance Hematologic/ Lymphatic: Denies: Easy Bruising, Easy Bleeding VTE Information - Inpt Only VTE Present on Admission: No - Physical Exam Vitals/I&O's: Vital Signs Temp Pulse Resp BP Pulse Ox 98.6 F 98 18 115/71 98 10/27/19 07:04 10/27/19 07:04 10/27/19 07:04 10/27/19 07:04 10/27/19 07:04 Oxygen Delivery Method Room Air Weight: 330 lb 9.6 oz Body Mass Index (BMI) 60.5 General: Alert, Oriented x3 HEENT: Atraumatic, Normocephalic Oral: Moist Mucosa Neck: Trachea Midline, Thyroid Normal Size and Texture Lungs: Clear to auscultation, Normal air movement Cardiovascular: Regular rate, Regular Rhythm Abdomen: Soft, Non Tender, Non-Distended Extremities: No edema Skin: No rashes Neurological: Neuro grossly intact Laboratory Results 10/27/19 06:40: Urine Test Negative 10/27/19 06:40: WBC 9.9, RBC 5.12, Hgb 13.7, Hct 44.0, MCV 85.9, MCH 26.8 L, MCHC 31.1 L, RDW Std Deviation 42.6, RDW Coeff of Anya 13.6, Plt Count 290, MPV 10.2 10/27/19 06:40: Sodium 135 L, Potassium 3.7, Chloride 101, Carbon Dioxide 30.0, Anion Gap 4 L, BUN 11, Creatinine 0.91, Estim Creat Clear Calc 70.20, Est GFR (MDRD) Af Amer 92, Est GFR (MDRD) Non-Af 76, BUN/Creatinine Ratio 12.1, Glucose 284 H, Calcium 8.7, Magnesium 1.9 10/27/19 06:40: Hemoglobin A1c 7.4 H 10/27/19 06:40: Blood Type Pending, Antibody Screen Pending 10/27/19 07:09: POC Glucose 237 H Current Medications Lactated Ringer's () 1,000 mls @ 40 mls/hr IV .Q25H ALBERT Last Admin: 10/27/19 07:13 Dose: 40 mls/hr Documented by: Insulin Human Lispro (Humalog Kwikpen (Bkc)) 0 unit SC Q4H PRN PRN; Protocol PRN Reason: BG >/= 180, SEE PROTOCOL Assessment/Plan All Active Problems (Last Updated 10/07/19 @ 10:[address] Rebecca Mehta MD) Dysmenorrhea (Acute) Menorrhagia with irregular cycle (Acute) Climacteric (Acute) Urinary tract infection (Acute) Bladder pain (Acute) Urgency of urination (Acute) Frequency of urination (Acute) 34-year-old with abnormal uterine bleeding and worsening pelvic pain After discussing the patient's diagnosis and treatment plan options, patient wishes to proceed with surgical management. I have discussed with the patient the risks, benefits, and alternatives of the procedure which include but are not limited to risks of anesthesia, bleeding, infection, possible damage to bowel, bladder, or surrounding vasculature which could lead to additional surgery to evaluate any complications. Patient agrees to procedure and wishes to proceed. ACOG/uptodate references given for additional information regarding procedure. Plan laparoscopic-assisted vaginal hysterectomy cystoscopy Essential Procedure Criteria Procedure Essential: Yes Criteria Note: On 09/15/2019 the [facility] ([facility]) Public Order signed by [facility] Director Antoinette Barnes M.D., regarding the Management of Non- Essential Surgeries and Procedures for the purpose of preserving Personal Protective Equipment (PPE) and critical hospital capacity and resources within [place] went into effect as of 09/16/2019 at 5:00PM. According to the [facility] Public Order: This action will remain in full force and effect until the State of Emergency declared by the Governor no longer exists or the Director of the [facility] rescinds or modifies this Order.. This [facility] order stated all non-essential or elective surgeries and procedures that utilize PPE should be delayed unless there is undue risk to the current or future health of a patient. After reviewing the aforementioned [facility] Public Order and the patients clinical case, I have determined that the scheduled procedure meets the criteria to go forward. Risk to Patient if Procedure Delayed: Risk of rapidly worsening to severe symptoms
--- NOTE | 2019-10-27 08:19 | PCM.OPRPT ---
Problem List (1) Dysmenorrhea Status: Acute Comment: Possible post ablation syndrome, ultram PRN (2) Menorrhagia with irregular cycle Status: Acute Comment: US, megace, consult [facility] cysto Dr. Mehta (3) Climacteric Status: Acute Comment: lab evaluation, may need adjustment to zoloft Report of Operation Date of Procedure: 10/27/19 Pre-Operative Diagnosis: aub pelvic pain Post-Operative Diagnosis: same Surgery/Procedure Performed:: lav cystoscopy Description of Surgical Findings:: uterus nl with small fibroid and left tbe and ovary normal, simple cyst physical therapy assistant instructor: Marlene Jimenez Type of Anesthesia:: General Special Medications: jeff Specimen's removed: uterus Drains: kulkarni Estimated Blood Loss (mL): 100 Fluids Replaced: crystalloid Description of Procedure: Patient received preoperative antibiotics and SCDs were on preoperatively. Patient was taken back to the operating room and placed in the dorsal lithotomy position. General anesthesia was induced and patient was prepped and draped in normal sterile fashion. Uterine manipulator was placed inside the uterus and Kulkarni catheter placed in the bladder. The umbilicus was grasped with towel clamps and an intraumbilical incision was made after injecting with quarter percent Marcaine and a Veress needle entered into the abdomen confirmed to be intra-abdominal with a low opening pressure. Abdomen was insufflated with CO2 gas and the Veress needle removed and the 5 mm trocar was placed under direct visualization without complication. Right and left lower quadrants were transilluminated and injected with quarter percent Marcaine and 5 mm ports placed under direct visualization. Pelvis was well visualized see operative findings for additional information. the utero-ovarian ligaments were transected with the LigaSure device. The broad ligament was opened up by transecting the round ligament bilaterally and skeletonizing the uterine vessels bilaterally and creating a bladder flap using the LigaSure device. The left ovary was noted have a simple cyst which was ruptured and drained and the left fallopian tube was removed without complication. The uterine arteries were transected bilaterally with good visualization of the bladder and the ureters were seen to be inferior lateral to the operative area. Attention was then paid to the vaginal portion of the procedure and the cervix was grasped with Rdaha clamps and circumferentially injected with dilute vasopressin. A circumferential incision was made and the vaginal mucosa was mobilized off posteriorly and the cul-de-sac entered into sharply and a longneck speculum placed. There is limited visualization due to patient's body habitus. The anterior cul-de-sac was then identified and entered into sharply. The uterosacral ligaments were clamped cut and suture ligated with 0 Monocryl bilaterally followed by the cardinal ligaments which were clamped cut and suture ligated bilaterally with 0 Monocryl. The uterus serially descended and was removed without difficulty with no morcellation. The left pelvic sidewall pedicles spontaneously amputated upon uterine removal this area was oversewn and noted to be hemostatic. Pelvic sidewall pedicles were checked and noted to have excellent hemostasis. The vaginal mucosa was reapproximated incorporating the posterior peritoneum. This was reapproximated using 0 Vicryl [id number] sutures. Excellent hemostasis was noted. The cystoscopy was then performed and bilateral ureteral strong spray was noted and the bladder was noted to have no abnormality or lesions seen. Kulkarni catheter was replaced and then attention paid to the abdominal portion of the procedure again. The pelvis and cul-de-sac was well visualized and no significant active bleeding noted but some raw areas were seen on the peritoneum and therefore Jeff was applied. Pressure was taken down and the areas visualized and noted of excellent hemostasis. All ports were removed under direct visualization without complication and the abdomen was desufflated of air. The instruments removed from the abdomen and the vagina vaginal sweep was negative. Port sites on the abdomen were closed with 4-0 Monocryl interrupted sutures and Steri's and windows were applied. She was awoken and taken recovery in stable condition. Grafts/Implants Used: none - Complications none - Admit VTE Documentation VTE Present on Admission: No VTE Mechan Device Prophylaxis: SCD's Multi Select Codes - Urinary/Genital Urinary/Genital CPT Codes: 49865 Cystoscopy, 98330 LAVH+BS/O <250gr Uterus
[2019-10-27] MEDS: Insulin Lispro 100 UNIT/ML INSULN.PEN SC (08:37)
[2019-10-27] MEDS: Vasopressin 20 UNITS/ML Vial (09:00)
[2019-10-27] MEDS: Bupivacaine 0.25% 30 ML Vial (09:54)
[2019-10-27] MEDS: Ondansetron 4 MG/2 ML Vial IV (10:33)
[2019-10-27 10:46] LABS: Bedside Glucose 179 mg/dL (70-110)
[2019-10-27] MEDS: Ketorolac 30 MG/ML Syringe IV ×3 (11:11→23:54)
[2019-10-27] MEDS: Lactated Ringers 1,000 ML 70 ML IV (12:22)
[2019-10-27] MEDS: buPROPion (SR) 150 MG Tablet.SA PO ×2 (12:30→22:15)
[2019-10-27] MEDS: Docusate Sodium 100 MG Capsule PO ×2 (12:30→22:15)
[2019-10-27] MEDS: Sertraline 100 MG Tablet PO (12:30)
[2019-10-27] MEDS: Loratadine 10 MG Tablet PO (12:30)
[2019-10-27] MEDS: Tolterodine Tartrate 2 MG CAP.SA PO (12:30)
--- NOTE | 2019-10-27 12:48 | DCINST_ITS ---
Discharge Diet: No Restrictions Discharge Activity: Return to Normal Activity, May Not Drive, May Shower May resume sexual activity in: 6-8 weeks Call your doctor if your incision/area has: Continuous Slow Oozing, Sudden Increased Bleeding, Increased Pain/ Swelling, Increased Redness, Foul Smelling Discharge Call your doctor if you observe: Fever of 101 or Higher, Inability to urinate, Inability to have a bowel movement, Using more than one pad per hour Allergies/Adverse Reactions: Allergies cephalexin Allergy (Verified 10/23/19 09:01) Itching duloxetine [From Cymbalta] Adverse Reaction (Verified 10/23/19 09:01) Other fluoxetine [From Prozac] Adverse Reaction (Verified 10/23/19 09:01) HALLUCINATIONS gabapentin Adverse Reaction (Verified 10/27/19 07:45) headache Medications to take at Discharge Celecoxib [Celebrex] 100 mg PO BID 02/17/16 Lorazepam [Ativan] 0.5 mg PO BID PRN PRN 02/17/16 buPROPion SR [Wellbutrin SR (150mg tablets)] 150 mg PO BID 02/17/16 Cholecalciferol (Vitamin D3) [Vitamin D3] 5,000 unit PO DAILY 11/12/17 Dicyclomine HCl [Bentyl] 20 mg PO DAILY 08/15/18 Budesonide/Formoterol 160/4.5 [Symbicort 160/4.5 Mcg Inhaler (SP)] 2 puff INHALATION BID PRN 11/17/18 Rizatriptan Benzoate [Maxalt] 10 mg PO PRN PRN 11/17/18 fesoterodine 4 mg tablet,extended release 24 hr 4 mg PO DAILY 09/02/19 ondansetron 4 mg disintegrating tablet 4 mg PO Q4H PRN #60 tab 09/02/19 cyclobenzaprine 10 mg tablet 10 mg PO TID PRN PRN #20 tab 09/03/19 tramadol 50 mg tablet 50 mg PO Q8H PRN #60 tab 09/07/19 Cetirizine HCl [Zyrtec] 10 mg PO DAILY 10/23/19 Nystatin Powder [Mycostatin Powder] 1 applic TOPICAL BID PRN 10/23/19 Sertraline HCl [Zoloft] 100 mg PO DAILY 10/23/19 Naproxen [Naprosyn] 250 - 500 mg PO Q8H PRN PRN #30 tab 10/27/19 Oxycodone HCl/Acetaminophen [Percocet 5-325] 1 - 2 tablet PO Q6H PRN PRN 7 Days #15 tablet 10/27/19 The following prescriptions were given: Naproxen [Naprosyn] 250 - 500 mg PO Q8H PRN PRN #30 tab PRN Reason: MILD PAIN Transmission Status: Pending to [facility] Oxycodone HCl/Acetaminophen [Percocet 5-325] 1 - 2 tablet PO Q6H PRN PRN 7 Days #15 tablet PRN Reason: Pain Transmission Status: Sent to [facility] Primary Care Physician: Misbah Ford DO [Primary Care Provider] - Test Results: Test results from this visit will be discussed in further detail at your follow- up appointment, if applicable. Please Follow Up With: Rebecca Mehta MD - [phone]
[2019-10-27] MEDS: Dicyclomine 10 MG Capsule PO (15:17)
[2019-10-27 16:36] LABS: Bedside Glucose 312 mg/dL (70-110)
--- NOTE | 2019-10-27 17:09 | NURSING ---
pt still not comfortable taking insulin - says she will start back on her metformin whenever she goes home
[2019-10-27 17:10] LABS: Bedside Glucose 300 mg/dL (70-110)
[2019-10-27 23:15] LABS: Bedside Glucose 188 mg/dL (70-110)
[2019-10-27] MEDS: 0.9% Saline Lock 10 ML Syringe IV (23:54)
[2019-10-28 04:02] VITALS: BP 116/68; PULSE 76; RESP 16; TEMP 36.8; O2SAT 97
[2019-10-28 05:49] LABS: Hematocrit 38.4 % (37-47); Hemoglobin 12.2 g/dL (12.0-15.0); Mean Corp Hgb Conc 31.8 g/dL (32-36); Mean Corpuscular Hgb 26.7 pg (27.0-32.0); Mean Platelet Vol. 10.4 fl (6.2-12.0); Platelet Count 274 K/mm3 (150-450); RBC Distribution Width CV 14.1 % (11.6-14.6); RBC Distribution Width SD 43.2 fl (35.1-43.9); Red Blood Count 4.57 M/mm3 (4.2-5.4); White Blood Count 15.4 K/mm3 (4.4-11.0)
[2019-10-28 06:12] LABS: Anion Gap 5 (5-15); BUN 15 mg/dL (7-18); Calcium,Total 8.2 mg/dL (8.5-10.1); Chloride 105 mmol/L (98-107); Creatinine, Serum 0.88 mg/dL (0.55-1.02); EST Glomerular Filtration Rate 79 mL/min (>60); Est Glom Filt Rate - Afr Amer 95 mL/min (>60); Estimated Creatinine Clearance 69.26 ml/min; Glucose 170 mg/dL (74-106); Potassium 4.3 mmol/L (3.5-5.1); Sodium Level 137 mmol/L (136-145)
[2019-10-28] MEDS: Ketorolac 30 MG/ML Syringe IV (06:38)
[2019-10-28] MEDS: 0.9% Saline Lock 10 ML Syringe IV (06:39)
[2019-10-28 06:50] LABS: Bedside Glucose 148 mg/dL (70-110)
[2019-10-28] MEDS: Acetaminophen 500 MG Tablet 1000 MG PO (07:27)
[2019-10-28 08:21] VITALS: BP 118/64; PULSE 75; RESP 20; TEMP 36.7; O2SAT 97
[2019-10-28] MEDS: Docusate Sodium 100 MG Capsule PO (08:30)
[2019-10-28] MEDS: buPROPion (SR) 150 MG Tablet.SA PO (08:30)
[2019-10-28] MEDS: Dicyclomine 10 MG Capsule PO (08:31)
[2019-10-28] MEDS: Tolterodine Tartrate 2 MG CAP.SA PO (08:31)
[2019-10-28] MEDS: Sertraline 100 MG Tablet PO (08:31)
[2019-10-28] MEDS: Loratadine 10 MG Tablet PO (08:31)
[2019-10-28] MEDS: Enoxaparin 40 MG/0.4 ML Syringe SC (08:31)
--- NOTE | 2019-10-28 08:49 | PCM.PN.OB ---
Subjective: patient recovering well, denies CP, SOB, N, or V. patient is ambulating, voiding ,tolerating adequate po, and pain is controlled with oral medications. - Physical Exam Vitals/I&O's: Vital Signs Temp Pulse Resp BP Pulse Ox 98.0 F 75 20 H 118/64 97 10/28/19 08:21 10/28/19 08:21 10/28/19 08:21 10/28/19 08:21 10/28/19 08:21 Oxygen Flow Rate (L/min) 6 Oxygen Delivery Method Room Air Weight: 330 lb 9.612 oz Body Mass Index (BMI) 60.8 Intake and Output for Last 24 Hours 10/26/19 10/27/19 10/28/19 23:59 23:59 23:59 Intake Total 2868.25 / 2868.25 1115.5 / 1115.5 Output Total 3105 / 3105 750 / 750 Balance -236.75 / -236.75 365.5 / 365.5 General: Alert, Oriented x3 Laboratory Results 10/27/19 06:40: Blood Type B POSITIVE, Antibody Screen NEGATIVE 10/27/19 10:40: POC Glucose 179 H 10/27/19 16:10: POC Glucose 312 H 10/27/19 17:05: POC Glucose 300 H 10/27/19 22:10: POC Glucose 188 H 10/28/19 05:37: WBC 15.4 H, RBC 4.57, Hgb 12.2, Hct 38.4, MCV 84.0, MCH 26.7 L, MCHC 31.8 L, RDW Std Deviation 43.2, RDW Coeff of Anya 14.1, Plt Count 274, MPV 10.4 10/28/19 05:37: Sodium 137, Potassium 4.3, Chloride 105, Carbon Dioxide 27.0, Anion Gap 5, BUN 15, Creatinine 0.88, Estim Creat Clear Calc 69.26, Est GFR (MDRD) Af Amer 95, Est GFR (MDRD) Non-Af 79, BUN/Creatinine Ratio 17.0, Glucose 170 H, Calcium 8.2 L 10/28/19 06:43: POC Glucose 148 H Current Medications Acetaminophen (Tylenol) 1,000 mg PO Q6 ALBERT Last Admin: 10/28/19 07:27 Dose: 1,000 mg Documented by: Albuterol Sulfate (Ventolin Aerosols) 2.5 mg INHALATION Q6H PRN PRN PRN Reason: ASTHMA Budesonide (Pulmicort Aerosol) 0.5 mg INHALATION BID PRN PRN PRN Reason: ASTHMA Bupropion HCl (Wellbutrin Sr (150mg Tablets)) 150 mg PO BID [facility] Last Admin: 10/28/19 08:30 Dose: 150 mg Documented by: Dicyclomine HCl (Bentyl) 10 mg PO DAILY [facility] Last Admin: 10/28/19 08:31 Dose: 10 mg Documented by: Docusate Sodium (Colace) 100 mg PO BID [facility] Last Admin: 10/28/19 08:30 Dose: 100 mg Documented by: Enoxaparin Sodium (Lovenox) 40 mg SC DAILY [facility] Last Admin: 10/28/19 08:31 Dose: 40 mg Documented by: Insulin Human Lispro (Humalog Kwikpen (Bkc)) 0 unit SC [facility]; Protocol Last Admin: 10/28/19 06:45 Dose: Not Given Documented by: Ketorolac Tromethamine (Toradol (Bkc)) 30 mg IV Q6 [facility] Stop: 10/28/19 18:01 Last Admin: 10/28/19 06:38 Dose: 30 mg Documented by: Labetalol HCl (Trandate) 100 mg PO BID [facility] Last Admin: 10/27/19 22:13 Dose: Not Given Documented by: Loratadine (Claritin) 10 mg PO DAILY [facility] Last Admin: 10/28/19 08:31 Dose: 10 mg Documented by: Lorazepam (Ativan) 0.5 mg PO BID PRN PRN PRN Reason: ANXIETY Magnesium Oxide (Mag-Ox 400) 400 mg PO DAILY PRN PRN PRN Reason: Constipation Nutritional Formula (Lactose Free) (Ensure Enlive) 120 ml PO TIDCM [facility] Ondansetron HCl (Zofran Odt) 4 mg PO Q6H PRN PRN PRN Reason: NAUSEA Oxycodone HCl (Oxyir) 5 - 10 mg PO Q4H PRN PRN PRN Reason: Pain Score 4-10/10 Sertraline HCl (Zoloft) 100 mg PO DAILY [facility] Last Admin: 10/28/19 08:31 Dose: 100 mg Documented by: Sodium Chloride () 10 - 40 ml IV UD PRN PRN Reason: SALINE FLUSH Last Admin: 10/28/19 06:39 Dose: 10 ml Documented by: Tolterodine Tartrate (Detrol La) 2 mg PO DAILY [facility] Last Admin: 10/28/19 08:31 Dose: 2 mg Documented by: Medical Necessity - Tobacco Use Smoking Status: Former smoker Tobacco Use: Non-smoker Assessment/Plan All Active Problems (Last Updated 10/07/19 @ 10:[address] Rebecca Mehta MD) Dysmenorrhea (Acute) Menorrhagia with irregular cycle (Acute) Climacteric (Acute) Urinary tract infection (Acute) Bladder pain (Acute) Urgency of urination (Acute) Frequency of urination (Acute) patient is s/p lavh POD 1 1. routine ERAS protocol postop care- increase ambulation, encourage oral intake and oral control of pain. lovenox and scds for dvt prophylaxis, patient stable for discharge to home. discussed with patient importance of BS and bp control, patient refused insulin overnight. i discussed the risks of infections, poor wound healing, and other complications. patient still refused insulin, i encouraged fu with her PCP
== END 2019-10-28 09:37 | disposition home or self-care (01) ==
LOC: SDC 15:07 → MS3 15:07
PROVIDERS: Admitting Provider Obstetrics & Gynecology; PCP Student in an Organized Health Care Education/Training Program; Referring Provider Obstetrics & Gynecology; Visit Provider Obstetrics & Gynecology
PROC: 0UT9FZZ Resection of Uterus, Via Natural or Artificial Opening With Percutaneous Endoscopic Assistance (ICD-10-PCS; CPT 58552; principal; 2019-10-27 08:05)
DX: D25.9 Leiomyoma of uterus, unspecified (principal); N92.1 Excessive and frequent menstruation with irregular cycle; N94.6 Dysmenorrhea, unspecified; F41.9 Anxiety disorder, unspecified; F32.9 Major depressive disorder, single episode, unspecified; G89.29 Other chronic pain; E28.2 Polycystic ovarian syndrome; N30.10 Interstitial cystitis (chronic) without hematuria; E11.9 Type 2 diabetes mellitus without complications; J45.909 Unspecified asthma, uncomplicated; G43.909 Migraine, unspecified, not intractable, without status migrainosus; Z87.891 Personal history of nicotine dependence; K21.9 Gastro-esophageal reflux disease without esophagitis; Z78.0 Asymptomatic menopausal state; Z79.899 Other long term (current) drug therapy
CPT/HCPCS: 00940; 58552; 36415; 80048; 81025; 82962; 83036; 83735; 85027; 86850; 86900; 86901; 88307; 94762; 96372; 96374; 96376; 99218; 99251; J7120; A4216; G0378; G0463; J2405

== ENCOUNTER → 2020-03-25 09:45 | Outpatient (CLI) | payer OTHER, MEDICAID, SELFPAY ==
[2019-12-10 14:52] VITALS: BMI 60.8
--- NOTE | 2020-03-30 17:08 | STRESSREP_ITS ---
Stress Test Report Date: 03/25/2020 Procedure: Exercise tolerance test Indications: Palpitations Consent: Per the patient Procedure: The patient exercised on a Kevin protocol for 3 minutes 51 seconds achieving a peak heart rate of 166 bpm (88% predicted maximal heart rate) with a peak blood pressure 158/88 mmHg and a peak MET capacity of approximately 5.6 MET's. The baseline ECG demonstrated normal sinus rhythm. The peak exercise ECG demonstrated sinus tachycardia with no significant ischemic changes. [There were no cardiac dysrhythmias pretest, during exercise, or recovery]. The functional capacity was considered significantly decreased for age. The patient had no complaint of chest discomfort during exercise or recovery. The examination was discontinued secondary to knee pain and shortness of breath. Impression: 1. Technically adequate (percent predicted maximal heart rate greater than 85%) exercise tolerance test 2. Stress test is negative for exercise-induced chest pain. 3. Stress test test is negative for exercise-induced EKG changes of ischemia. 4. Functional capacity is significantly decreased This note was generated with [employer] software. It may contain incorrect words, spelling, and punctuation that were not noted in checking the note before signing.
== END ==
PROVIDERS: PCP Student in an Organized Health Care Education/Training Program; Referring Provider Student in an Organized Health Care Education/Training Program; Visit Provider Student in an Organized Health Care Education/Training Program
DX: R00.2 Palpitations (principal); R79.89 Other specified abnormal findings of blood chemistry
CPT/HCPCS: 93017

== ENCOUNTER 2021-06-03 17:55 | Emergency (ER) | payer MEDICAID, SELFPAY ==
[2021-06-03 18:02] VITALS: BP 159/120; PULSE 88; RESP 17; TEMP 35.8; O2SAT 96; BMI 62.1
[2021-06-03 18:56] LABS: Mucous, Urine 0 SEEN /hpf (<or=2+); Red Blood Cells-Urine 0 SEEN /hpf (0-5); White Blood Cells 0 SEEN /hpf (0-5)
[2021-06-03 19:00] LABS: Color, Urine Yellow (Yellow); Glucose, Dipstick Normal (Normal); Ketone-Dipstick Negative (Negative); Leukocyte Esterase-Dipstick Negative /ul (Negative); Nitrite-Dipstick Negative (Negative); Occult Blood-Urine Negative /ul (Negative); Protein-Dipstick 15 mg/dl (Negative); Urine Bilirubin Dipstick Negative (Negative); Urine Clarity Sl. Cloudy (Clear); Urine Urobilinogen Normal (Normal)
[2021-06-03 19:12] LABS: Bacteria 2+ /hpf (None Seen); Squamous Epithelial Cells - UA 5-10 SEEN /hpf (5-10)
--- NOTE | 2021-06-03 20:13 | ED.VIS.FEGU ---
HPI HPI - Female History of Present Illness Chief Complaint: Complaint Informant: patient Pain Current Severity: Mild Maximum Severity: Mild Bleeding Issue: Negative for Vaginal bleeding, Passing clots and Passing tissue Associated Symptoms Associated Symptoms: Positive for Dysuria Narrative Narrative: 36-year-old female history of prior kidney stones and UTIs. Also interstitial cystitis. She had a prior hysterectomy. And cholecystectomy. States that she gets frequent UTIs. She started having symptoms 4 to 5 days ago. With dysuria. And some low back discomfort. States that this does not feel like a kidney stone. She has had no fever. She has had nausea but no vomiting. No vaginal bleeding. Prior similar symptoms: Yes Recent Illness/Hospitalization: No PFSH PFSH Medical History Anxiety and depression Asthma Diabetes Endometriosis Interstitial cystitis Migraine PCOS (polycystic ovarian syndrome) Home Medications bupropion HCl 150 mg PO BID 02/17/16 [History Last Taken 10/16/18] celecoxib 100 mg PO BID 02/17/16 [History Last Taken 10/16/18] lorazepam 0.5 mg PO BID PRN PRN 02/17/16 [History Last Taken Unknown] cholecalciferol (vitamin D3) 50,000 unit PO WE 11/12/17 [History Last Taken 10/16/18] budesonide-formoterol 2 puff INHALATION BID PRN 11/17/18 [History Last Taken Unknown] rizatriptan 10 mg PO PRN PRN 11/17/18 [History Last Taken Unknown] fesoterodine 4 mg tablet,extended release 24 hr 4 mg PO DAILY 09/02/19 [History Last Taken Unknown] cyclobenzaprine 10 mg tablet 10 mg PO TID PRN PRN #20 tab 09/03/19 [Rx Last Taken Unknown] cetirizine 10 mg PO DAILY 10/23/19 [History Last Taken Unknown] nystatin 1 applic TOPICAL BID PRN 10/23/19 [History Last Taken Unknown] sertraline 100 mg PO DAILY 10/23/19 [History Last Taken Unknown] dulaglutide [Trulicity] 1.5 mg SUBCUT WE 06/03/21 [History Last Taken Unknown] sulfamethoxazole-trimethoprim [Bactrim DS] 1 tab PO BID 5 Days #10 tab 06/03/21 [Rx Last Taken Unknown] Allergy/AdvReac Type Severity Reaction Status Date / Time cephalexin Allergy Itching Verified 06/03/21 17:57 duloxetine [From Cymbalta] AdvReac Other Verified 06/03/21 17:57 fluoxetine [From Prozac] AdvReac HALLUCINATI Verified 06/03/21 17:57 ONS gabapentin AdvReac headache Verified 06/03/21 17:57 Family History Unknown CVA (cerebral vascular accident) Myocardial infarction Uterine cancer Congestive heart disease Surgical History delivery delivered Encounter for Essure implantation History of endometrial ablation History of LAVH History of right oophorectomy Hx of cholecystectomy Social History Smoking Status: Former smoker alcohol intake: never substance use type: does not use caffeine: Yes what type of physical activity do you participate in: walking seatbelt use: always do you feel safe at home: Yes 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: - 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 Dysuria. Review of Systems ROS Unobtainable: Denies due to encephalopathy Constitutional Constitutional ED: Denies fever(s) Eyes Eyes: Denies change in vision ENT ENT ED: Denies ear pain Cardiovascular Cardiovascular: Denies chest pain Respiratory/Chest Respiratory/Chest: Denies cough or dyspnea Gastrointestinal Gastrointestinal: Reports nausea; Denies abdominal pain, diarrhea or vomiting Genitourinary Genitourinary ED: Reports dysuria Musculoskeletal Musculoskeletal: Denies myalgias Integumentary Denies rash Neurologic Neurologic: Denies headache(s) Psychiatric Psychiatric: Denies depression Endocrine Endocrinology: Denies polyuria Hematologic/Lymphatic Hematologic/Lymphatic: Denies easy bruising Allergic/Immunologic Allergic/Immunologic ED: Denies urticaria EXAM Physical Exam Narrative Exam Narrative: 36-year-old female no acute distress vital signs stable afebrile does not look septic toxic. Initial blood pressure elevated 159/120 that will be rechecked. HEENT exam unremarkable. Neck nontender. Lungs clear to auscultation. Heart regular rhythm no murmur. Abdomen soft nontender normal bowel sounds no peritoneal signs. Morbidly obese. Moving all 4 extremities. Neurologically awake and alert. Back nontender. No CVA tenderness. Const Vital Signs: 06/03/21 18:02 Temperature 96.5 F L Temperature Source Temporal Pulse Rate 88 Respiratory Rate 17 Blood Pressure 159/120 H Blood Pressure Mean 133 Pulse Ox 96 Oxygen Delivery Method Room Air Positive well nourished, well developed and obese; Negative for cachectic, contractures or unkempt General Appearance ED: well developed and NAD; Negative for unkempt, cachectic, contractures or odor of alcohol detected Nutritional Appearance: obese; Negative for cachectic HEENT Reports moist mucous membranes Negative for trauma or tenderness Eyes PERRL and EOMs intact bilaterally Neck no lymphadenopathy, supple and no JVD Thyroid: Negative for tender Chest Wall inspection of chest normal and palpation of chest normal Resp normal respiratory effort and clear to auscultation bilaterally Auscultation: Negative for rales, rhonchi or wheezes Cardio regular rate, regular rhythm, S1 normal heart sound and no murmurs GI normal to inspection, nondistended, normoactive bowel sounds, soft to palpation, non-tender, non-distended and no masses Auscultation: normoactive bowel sounds; Negative for hypoactive bowel sounds Palpation: Negative for tender, guarding or rigid no CVA tenderness Back/Spine no CVA tenderness General Back: Negative for CVA tenderness Extremity normal to inspection and full ROM General Extremety ED: Negative for edema or tenderness General Extremity: Negative for edema Neuro oriented x3 Sensorium / Orientation: alert, oriented to person, oriented to place and oriented to time Motor Exam: strength 5/5 throughout Psych mental status grossly normal Appearance: Negative for unkempt Skin no rashes or lesions noted and no wounds General Skin Exam: Negative for jaundice MDM MDM MDM Narrative Medical decision making narrative: 36-year-old female with frequent UTIs with dysuria and low back pain. Does not feel like it is a kidney stone. Clinically this does not appear to be a kidney stone. Urine shows 5-10 bacteria cells 2+ bacteria. No nitrites and no white cells. I explained the patient this may not be a UTI we will start her on antibiotics and a urine culture and she will follow up with her primary care physician on Saturday. She will be given a dose of Bactrim here and a prescription for Bactrim for 5 days. Lab Data Attestation: I reviewed the patient's lab results. Lab results narrative: Urinalysis shows no nitrates, no red or white cells. 5-10 bacteria cells and 2+ bacteria. Labs: Laboratory Results - last 24 hr 06/03/21 18:20 Urine Color Yellow Urine Clarity Sl. Cloudy Urine pH 7.0 Ur Specific [place] 1.020 Urine Protein 15 H Urine Glucose (UA) Normal Urine Ketones Negative Urine Occult Blood Negative Urine Nitrite Negative Urine Bilirubin Negative Urine Urobilinogen Normal Ur Leukocyte Esterase Negative Urine RBC 0 SEEN Urine WBC 0 SEEN Ur Squamous Epith Cells 5-10 SEEN Urine Bacteria 2+ Urine Mucus 0 SEEN Discharge Plan Triage Chief Complaint: Complaint ED Provider: Danyel Wade Dx/Rx/DC Orders Clinical Impression: Cystitis Instructions: UITs Women Prescriptions: New sulfamethoxazole-trimethoprim [Bactrim DS] 800-160 mg tablet 1 tab PO BID 5 Days Qty: 10 RF: 0 No Action Toviaz 4 mg tablet extended release 24 hr 4 mg PO DAILY RF: 0 bupropion HCl 150 MG tablet sustained-release 12 hr 150 mg PO BID RF: 0 lorazepam 0.5 MG tablet 0.5 mg PO BID PRN PRN (Reason: Anxiety) RF: 0 celecoxib 100 MG capsule 100 mg PO BID RF: 0 cholecalciferol (vitamin D3) 2,000 UNIT capsule 50,000 unit PO WE RF: 0 budesonide-formoterol 1 INHALER inhaler 2 puff inhalation BID PRN (Reason: Asthma) RF: 0 rizatriptan 10 MG tablet 10 mg PO PRN PRN (Reason: migraines) RF: 0 sertraline 100 MG tablet 100 mg PO DAILY RF: 0 cetirizine 10 MG capsule 10 mg PO DAILY RF: 0 nystatin 1 APPLIC bottle 1 applic topical BID PRN (Reason: skin folds) RF: 0 Trulicity 1.5 mg/0.5 mL pen injector 1.5 mg SUBCUT WE RF: 0 cyclobenzaprine 10 mg tablet 10 mg PO TID PRN PRN (Reason: Muscle Spasm) Qty: 20 RF: 0 Primary Care Provider: Misbah Ford Referrals: Misbah Ford DO [Primary Care Provider] - 2 Days Activity Restrictions/Additional Instructions: Plenty of fluids and rest. Cranberry juice several times a day. The antibiotic Bactrim 1 pill twice a day. Follow-up with your primary care physician on Saturday they can check the urine culture results. If the urine culture is negative the antibiotic can be stopped. If it is positive continue the current antibiotic unless the culture shows another antibiotic is needed. Motrin and Tylenol for pain. Disposition Disposition: Home, Self Care
[2021-06-03 20:31] VITALS: BP 143/114
[2021-06-03] MEDS: Smz/Tmp Ds Tablet 1 TABLET PO (20:32)
== END 2021-06-03 20:33 | disposition home or self-care (01) ==
PROVIDERS: Emergency Medicine; Emergency Provider Emergency Medicine; PCP Student in an Organized Health Care Education/Training Program
DX: N30.90 Cystitis, unspecified without hematuria (principal); E66.9 Obesity, unspecified; F32.A Depression, unspecified; F41.9 Anxiety disorder, unspecified; G43.909 Migraine, unspecified, not intractable, without status migrainosus; J45.909 Unspecified asthma, uncomplicated; Z79.899 Other long term (current) drug therapy; Z87.440 Personal history of urinary (tract) infections; Z87.442 Personal history of urinary calculi; Z87.891 Personal history of nicotine dependence
CPT/HCPCS: 81001; 87086; 87088; 99283

== ENCOUNTER 2021-10-25 12:30 | Outpatient (RCR) | payer MEDICAID, SELFPAY ==
--- NOTE | 2021-10-11 14:14 | HP.PTEVAL ---
Patient's Visit Information UCHE BRAVO is a 36 year old F referred to Physical Therapy by JOEL Duran with a diagnosis of RIGHT BICEPS TENDONITIS,RIGHT SHOULDER PAIN. Date of Evaluation: 10/11/21 Physical Therapist: Albert Sheridan, PT, Cert MDT, OCS - Visit Plan Frequency: 2x /Week Duration: 4 Weeks Plan: PT INTERVETIONS POSTURAL EX'S,ROM ,STRENGTHNEING RTC/SCAPULAR , AND MODALTIES - Subjective This 36 y/o female presents to physical therapy with right shoulder/biceps tendonitis. Patient has had right pain ~ 3 months. Patient symptoms where insidious onset shoulder pain. Seen primary DR who then recommended Ortho consult. Patient had x--rays which was negative, but wanted MRI but needed prior PT. Patient pain located global and anterior. Aggravating factors some lifting ,OH activities ,lift milk affects housework tasks and ADL'S. Alleviating MEDS Celebrex ,rest. Denies paresthesia /tingling. Pain affects sleeping. 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 Patient goals to have no more pain. SOCIAL: . VOACTION: [employer] [place] - Pain Right Shoulder Pain Intensity (Out of 10): 5 Pain Intensity Range: 10 - Objective POSTURE: mild forward posture ,rounded shoulders. NEURO; denies paresthesia/tingling. PALAPTION: tender AC ,pectoralis region, insertion, mild long head bicep. AROM: shoulder flexion 140 degrees,135 abduction, ER 90 IR L1. MMT: RTIC 4/5, 4-/5 deltoid - Special Tests R Shoulder External Rotation Lag Test - RC Tear: Negative R Shoulder Empty Can - SS: Negative R Shoulder Belly Press - SupScap: Negative R Shoulder Neer - Impingement: Positive R Shoulder Price Nixon - Impingement: Positive R Shoulder Biceps Load Test - Labrum: Negative R Shoulder Speeds Test - Labrum/Biceps: Negative R Shoulder AC Resisted - AC: Negative R Shoulder Shrug Sign - OA/Adhesive Capsulitis: Negative - Balance/Special Test Scores Quick DASH Score: 31.8175 - Goals Goal 1:: Patient to be I with HEP Goal Time Frame: 4-6 Weeks Goal 2:: Patient improve with ADLS and job demands 90 % of the time Goal Time Frame: 4-6 Weeks Goal 3:: Patient to improve lumbar ROM symmetrical right compared to left with actives reaching in cupboard Goal Time Frame: 4-6 Weeks Goal 4:: Patient improve quick dash by 5 points to improve function and QOL. Goal Time Frame: 4-6 Weeks Goal 5:: Patient to improve no limitations with OH activities and ADLS'/housework tasks Goal Time Frame: 4-6 Weeks - Rehabilitation Potential Physical Therapy Diagnosis: This patient has possible tendonitis shoulder RTC with pain with ROM ,pain with functional activities impairs ADLS housework tasks thus will benefit from skilled PT Rehabilitation Potential: Good - Anticipated Interventions Patient/Client Instruction: Educate patient on: Condition, Plan of Care For the Purpose of:: To decrease pain, To increase ROM, To improve muscle performance and motor function, To improve ability to perform ADL's, To increase tolerance to activity/condition/position, To improve health of tissue, To decrease soft tissue restriction, To increase flexibility/ROM, To reduce risk of recurrence Therapeutic Exercise to Include: Strength training, Postural training, Flexibilty training, Active ROM For the Purpose of:: To decrease pain, To increase ROM, To improve muscle performance and motor function, To improve ability to perform ADL's, To improve ability of physical actions for home/community/work/leisure, To improve health of tissue, To decrease soft tissue restriction, To increase flexibility/ROM, To improve tolerance to ADL's TENS: Yes IF ES: Yes Cryotherapy (ice pack, ice massage): Yes Thermo therapy (hot pack): Yes Ultrasound (thermal/non thermal): Yes For the Purpose of:: To decrease pain, To increase ROM, To improve nutrient delivery to tissue, To increase oxygenation perfusion, To improve health of tissue, To decrease soft tissue restriction Thank you for the opportunity to evaluate your patient. For Medicare and Medicare HMO plans, please review the plan of care and approve it. It will need to be FAXED BACK to us at [phone] for Medicare purposes. For Medicare only, by signing this I certify the plan of care. Please let me know if there are questions or concerns regarding this plan of care. Physician Signature: Date:
--- NOTE | 2022-04-04 09:16 | HP.PT.NRP ---
UCHE BRAVO was seen in my office for initial evaluation on 10/11/21. The following Plan of Care was established for this patient: Initial Frequency: 2x /Week Initial Duration: 4 Weeks Patient/Client Instruction: Educate patient on: Condition, Plan of Care For the Purpose of:: To decrease pain, To increase ROM, To improve muscle performance and motor function, To improve ability to perform ADL's, To increase tolerance to activity/condition/position, To improve health of tissue, To decrease soft tissue restriction, To increase flexibility/ROM, To reduce risk of recurrence Therapeutic Exercise to Include: Strength training, Postural training, Flexibilty training, Active ROM For the Purpose of:: To decrease pain, To increase ROM, To improve muscle performance and motor function, To improve ability to perform ADL's, To improve ability of physical actions for home/community/work/leisure, To improve health of tissue, To decrease soft tissue restriction, To increase flexibility/ROM, To improve tolerance to ADL's TENS: Yes IF ES: Yes Cryotherapy (ice pack, ice massage): Yes Thermo therapy (hot pack): Yes Ultrasound (thermal/non thermal): Yes For the Purpose of:: To decrease pain, To increase ROM, To improve nutrient delivery to tissue, To increase oxygenation perfusion, To improve health of tissue, To decrease soft tissue restriction This patient was last seen in our office . Pertinent comments regarding their Physical therapy will appear below: Patient seen for PT for shoulder pain with strengthening band ROM for 4 visits thus had MRI is negative. At this point I will be discontinuing this patient from physical therapy. I would be happy to see this patient again in the future if found appropriate by the physician. Thank you! Albert Sheridan, PT, Cert MDT, OCS Balance/Gait/Functional tests - Balance/Special Test Scores Quick DASH Score: 15.9064
== END 2021-10-25 19:00 | disposition home or self-care (01) ==
LOC: PT 12:30
PROVIDERS: PCP Student in an Organized Health Care Education/Training Program
DX: M75.21 Bicipital tendinitis, right shoulder (principal); M25.511 Pain in right shoulder
CPT/HCPCS: 97014; 97110; 97162; G0283

== ENCOUNTER → 2021-11-20 | Outpatient (CLI) | payer MEDICAID, SELFPAY ==
--- NOTE | 2021-11-20 17:45 | MRI_ITS ---
EXAM: MR RIGHT UPPER EXTREMITY WITHOUT INTRAVENOUS CONTRAST, SHOULDER CLINICAL INDICATION: RIGHT SHOULDER PAIN, LIMITED R.O.M TECHNIQUE: Multiplanar and multisequence MR images of the right shoulder without intravenous contrast. This report was created using [employer] report [employer] technology. COMPARISON: None. FINDINGS: TENDONS: SUPRASPINATUS: Mild supraspinous tendinosis. No significant rotator cuff tearing. INFRASPINATUS: Unremarkable. Intact. SUBSCAPULARIS: Unremarkable. Intact. TERES MINOR: Unremarkable. Intact. BICEPS BRACHII, LONG HEAD: Lateral biceps tendon is intact and normal in position. The extra-articular biceps tendon is in the bicipital groove. LIGAMENTS: GLENOHUMERAL: Unremarkable. Intact. MUSCLES: Muscles are normal. No rotator cuff muscle atrophy. FLUID: Tiny amount of fluid in subacromial/subdeltoid bursa is compatible with bursitis. No joint effusion. CARTILAGE: Unremarkable. Articular cartilage intact. GLENOID LABRUM: No gross evidence for labral tearing. BONES/JOINTS: No os acromiale. No subacromial enthesophyte. Type II acromion with curved undersurface. OTHER SOFT TISSUES: Unremarkable. No rotator interval edema. OTHER FINDINGS: Neurovascular structures are unremarkable. MRI/Upper Ext Joint Only(Routine) IMPRESSION: 1. Mild subacromial/subdeltoid bursitis. 2. No significant rotator cuff or labral tearing. Electronically Signed: Noah Vega MD at 21:35 EDT Reading Location ID and State: [address] [place] [address] Tel , Service support ,
== END | disposition home or self-care (01) ==
LOC: MRI 17:45
PROVIDERS: PCP Student in an Organized Health Care Education/Training Program
DX: M25.511 Pain in right shoulder (principal); M75.21 Bicipital tendinitis, right shoulder
CPT/HCPCS: 73221

== ENCOUNTER 2024-05-22 12:41 | Emergency (ER) | payer MEDICAID, SELFPAY ==
[2024-05-22 12:42] VITALS: BP 167/90; PULSE 98; RESP 28; TEMP 36.3; O2SAT 99; BMI 55.0
--- NOTE | 2024-05-22 12:51 | RAD_ITS ---
STUDY: X-RAY CHEST REASON FOR EXAM: Female, 39 years old. dyspnea TECHNIQUE: PA and lateral views of the chest. COMPARISON: Comparison is made with prior study dated October 31, 2010. FINDINGS: The lungs are clear and expanded. There is no demonstrated pleural abnormality. Normal size heart. Normal mediastinum and rizwan. Normal visualized pulmonary arteries. Normal visualized aortic arch and descending thoracic aorta. Increased kyphosis. Normal visualized ribs, clavicles, and shoulders. There is no demonstrated abnormality of the visualized soft tissue structures of the upper abdomen. RAD/Chest PA and Lateral IMPRESSION: No acute abnormality is seen. Electronically Signed: Christophe Driscoll MD at 13:57 EST ,
[2024-05-22 13:02] VITALS: O2SAT 98
--- NOTE | 2024-05-22 13:13 | EX.ED.DYSGE1 ---
HPI <JOEL Corado - Last Filed: 05/22/24 15:20> History of Present Illness Chief Complaint: Shortness of Breath Narrative Narrative: 39-year-old female with past medical history of type 2 diabetes and asthma has had 1 week of congestion and cough. Over the last few days she has had chest tightness and burning. She went to urgent care yesterday and had a chest x-ray and was diagnosed with bronchitis and started on prednisone 40 mg x 5 days and an albuterol inhaler. At baseline she uses a Symbicort inhaler. She is taken 2 doses of prednisone but feels like she has Cali Brown with inspiration and pressure feels short of breath and generally does not feel well. She was feeling very cold at work and was sent in for evaluation. [facility] <JOEL Corado - Last Filed: 05/22/24 15:20> [facility] Medical History Anxiety and depression Asthma Diabetes Endometriosis Interstitial cystitis Migraine PCOS (polycystic ovarian syndrome) PTSD (post-traumatic stress disorder) Home Medications ?Medication ?Instructions ?Recorded ?Last Taken ?Type bupropion HCl 150 mg tablet,12 hr 150 mg PO BID DEPRESSION 02/17/16 10/16/18 History sustained-release celecoxib 100 mg capsule 100 mg PO BID 02/17/16 10/16/18 History lorazepam 0.5 mg tablet 0.5 mg PO BID PRN PRN Anxiety 02/17/16 Unknown History cholecalciferol (vitamin D3) 50 50,000 unit PO WE 11/12/17 10/16/18 History mcg (2,000 unit) capsule budesonide-formoterol HFA 160 2 puff inhalation BID PRN Asthma 11/17/18 Unknown History mcg-4.5 mcg/actuation aerosol inhaler fesoterodine 4 mg tablet,extended 4 mg PO DAILY 09/02/19 Unknown History release 24 hr (Toviaz) cyclobenzaprine 10 mg tablet 10 mg PO TID PRN PRN Muscle Spasm 09/03/19 Unknown Rx #20 tabs cetirizine 10 mg capsule 10 mg PO DAILY 10/23/19 Unknown History nystatin 100,000 unit/gram topical 1 applic topical BID PRN skin folds 10/23/19 Unknown History powder sertraline 100 mg tablet 100 mg PO DAILY 10/23/19 Unknown History dulaglutide 1.5 mg/0.5 mL 1.5 mg subcut WE 06/03/21 Unknown History subcutaneous pen injector (Trulicity) hydroxychloroquine 200 mg tablet 200 mg PO BID 08/21/23 Unknown History prednisone 10 mg tablet 20 mg PO Q12H 05/22/24 Unknown History Allergy/AdvReac Type Severity Reaction Status Date / Time nickel Allergy Severe swelling Verified 05/22/24 12:42 cephalexin Allergy Itching Verified 05/22/24 12:42 duloxetine (From Cymbalta) AdvReac Other Verified 05/22/24 12:42 fluoxetine (From Prozac) AdvReac HALLUCINATI Verified 05/22/24 12:42 ONS gabapentin AdvReac headache Verified 05/22/24 12:42 Family History Unknown CVA (cerebral vascular accident) Myocardial infarction Uterine cancer Congestive heart disease Surgical History delivery delivered Encounter for Essure implantation History of endometrial ablation History of LAVH History of right oophorectomy Hx of cholecystectomy Social History Smoking Status: Current some day smoker tobacco type: cigarettes alcohol intake: never substance use type: does not use caffeine: Yes what type of physical activity do you participate in: walking seatbelt use: always do you feel safe at home: Yes 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: - 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 ENT: Positive for rhinorrhea. CVS: Positive for chest pain. Respiratory: Positive for cough. GI: Negative for abdominal pain, nausea, vomiting, diarrhea. EXAM <JOEL Corado - Last Filed: 05/22/24 15:20> Physical Exam Narrative Exam Narrative: CONST: Patient sitting in no acute distress. Appears ill but nontoxic. EYES: Normal inspection. NECK: Normal inspection. RESP: No respiratory distress, CTAB. CVS: Regular rate and rhythm, no murmur, no gallop. SKIN: Color normal, no rash, warm, dry, intact. EXTREMITIES: Normal appearance, no pedal edema. NEURO: Alert and answering questions appropriately. PSYCH: Normal affect. Const Vital Signs: 05/22/24 12:42 05/22/24 13:02 05/22/24 14:42 Temperature 97.4 F L Temperature Source Temporal Pulse Rate 98 81 Respiratory Rate 28 H 17 Respiratory Effort Short of Breath Respiratory Depth Normal Respiratory Pattern Normal Blood Pressure 167/90 H 122/72 H Blood Pressure Mean 115 88 Pulse Ox 99 97 Oxygen Delivery Method Room Air Room Air Room Air 05/22/24 14:52 Temperature 97.6 F L Temperature Source Pulse Rate 81 Respiratory Rate 17 Respiratory Effort Respiratory Depth Respiratory Pattern Blood Pressure 122/72 H Blood Pressure Mean 88 Pulse Ox 97 Oxygen Delivery Method <Dr. Jeffy Downing MD - Last Filed: 05/23/24 22:20> Physical Exam Const Vital Signs: 05/22/24 12:42 05/22/24 13:02 05/22/24 14:42 Temperature 97.4 F L Temperature Source Temporal Pulse Rate 98 81 Respiratory Rate 28 H 17 Respiratory Effort Short of Breath Respiratory Depth Normal Respiratory Pattern Normal Blood Pressure 167/90 H 122/72 H Blood Pressure Mean 115 88 Pulse Ox 99 97 Oxygen Delivery Method Room Air Room Air Room Air 05/22/24 14:52 Temperature 97.6 F L Temperature Source Pulse Rate 81 Respiratory Rate 17 Respiratory Effort Respiratory Depth Respiratory Pattern Blood Pressure 122/72 H Blood Pressure Mean 88 Pulse Ox 97 Oxygen Delivery Method [facility] <JOEL Corado - Last Filed: 05/22/24 15:20> [employer] Narrative Medical decision making narrative: Patient has URI symptoms and chest tightness and pain with coughing. She is taking prednisone and patient and albuterol inhaler from urgent care. She states she generally just feels worse today and was sent in from work. She appears ill but nontoxic. Initially was hypertensive and tachypneic with otherwise normal vital signs; however during my exam she is breathing in no distress about 18 times a minute 97% on room air. Lungs are clear. She has no signs of HEENT infection or meningitis/encephalitis. CXR shows no acute process and swab is negative for COVID/flu/RSV. I suspect she has another viral syndrome and is having some pleuritic pain with coughing. Her symptoms are not consistent with ACS or PE and I do not think she requires further emergent workup. She was given a work note and discharged in stable condition. Radiography Diagnostic Testing: Clinical Impression(s) from Imaging Studies Chest X-Ray 05/22/24 12:51 IMPRESSION: No acute abnormality is seen. Electronically Signed: Christophe Driscoll MD at 13:57 EST , ED attending interpretation of 2-view chest x-ray shows normal heart size, no acute infiltrate. <Dr. Jeffy Downing MD - Last Filed: 05/23/24 22:20> [facility] MDM Narrative Medical decision making narrative: Patient has URI symptoms and chest tightness and pain with coughing. She is taking prednisone and patient and albuterol inhaler from urgent care. She states she generally just feels worse today and was sent in from work. She appears ill but nontoxic. Initially was hypertensive and tachypneic with otherwise normal vital signs; however during my exam she is breathing in no distress about 18 times a minute 97% on room air. Lungs are clear. She has no signs of HEENT infection or meningitis/encephalitis. CXR shows no acute process and swab is negative for COVID/flu/RSV. I suspect she has another viral syndrome and is having some pleuritic pain with coughing. Her symptoms are not consistent with ACS or PE and I do not think she requires further emergent workup. She was given a work note and discharged in stable condition. I have personally performed a face to face assessment of the patient and have reviewed the SEAN Note. I performed a substantive portion of the visit including all aspects of the following. My mendez findings include: History is remarkable for upper respiratory infection for started a couple of days prior to presentation. Patient was treated with albuterol prednisone at urgent care. She feels worse and spite of appropriate treatment. She was sent in from work. She does appear ill. She does not appear toxic. She is in no respiratory distress when I examined her. She is not hypoxic. She denies myalgias or arthralgias. She denies rash. Exam is remarkable for initial respiratory of 28. Blood pressure was elevated 167/90. HEENT exam reveals mild nasal congestion. Lungs were clear to auscultation on the left side. There is rales at the right base. She did complain of left-sided pleuritic pain with deep breathing. This was also made worse with coughing. She has no history of PE or DVT. She denies leg pain, swelling or discoloration. Heart is regular. Rate is normal. There is no murmur, gallop or rub. Medical Decision Making patient is PERC negative. Patient's Wells score is less than 3. Will obtain a chest x-ray to evaluate for pneumonia. This was independently reviewed by me and was negative. Cardiac silhouette and size normal. There is no infiltrate documented by radiologist. In comparison to chest x-ray performed in March there is increased interstitial markings right lower lobe. In light of the fact that she has a cough that is productive with increased interstitial markings right lower lobe and rales right lower lobe will treat for pneumonia with doxycycline. Other additions or changes: [None] Radiography Diagnostic Testing: Clinical Impression(s) from Imaging Studies Chest X-Ray 05/22/24 12:51 IMPRESSION: No acute abnormality is seen. Electronically Signed: Christophe Driscoll MD at 13:57 EST , Discharge Plan Triage Chief Complaint: Shortness of Breath ED Midlevel Provider: Helen Jones ED Provider: Eric Villarreal Dx/Rx/DC Orders Clinical Impression: Acute viral syndrome Instructions: ED URI, Viral, No Abx (Adult) Prescriptions: No Action Toviaz 4 mg tablet extended release 24 hr 4 mg PO DAILY hydroxychloroquine 200 mg tablet 200 mg PO BID bupropion HCl 150 MG tablet sustained-release 12 hr 150 mg PO BID lorazepam 0.5 MG tablet 0.5 mg PO BID PRN PRN (Reason: Anxiety) celecoxib 100 MG capsule 100 mg PO BID cholecalciferol (vitamin D3) 2,000 UNIT capsule 50,000 unit PO WE budesonide-formoterol 1 INHALER inhaler 2 puff inhalation BID PRN (Reason: Asthma) sertraline 100 MG tablet 100 mg PO DAILY cetirizine 10 MG capsule 10 mg PO DAILY nystatin 1 APPLIC bottle 1 applic topical BID PRN (Reason: skin folds) Rx Instructions: apply BID to the abdominal pannus Trulicity 1.5 mg/0.5 mL pen injector 1.5 mg SUBCUT WE prednisone 10 mg tablet 20 mg PO Q12H cyclobenzaprine 10 mg tablet 10 mg PO TID PRN PRN (Reason: Muscle Spasm) Qty: 20 0RF Stand Alone Forms: ED Work / School Excuse Primary Care Provider: Misbah Ford Referrals: Misbah Ford, [Primary Care Provider] - Activity Restrictions/Additional Instructions: You have a viral illness. Rest, drink plenty of fluids, take Tylenol Motrin as needed for fever or pain, continue your albuterol inhaler as needed. Print Language: Maori Disposition Disposition: Home, Self Care Discharge Date/Time: 05/22/24 15:01
[2024-05-22 14:42] VITALS: BP 122/72; PULSE 81; RESP 17; O2SAT 97
[2024-05-22 14:52] VITALS: BP 122/72; PULSE 81; RESP 17; TEMP 36.4; O2SAT 97
== END 2024-05-22 15:01 | disposition home or self-care (01) ==
PROVIDERS: Emergency Provider Emergency Medicine; PCP Student in an Organized Health Care Education/Training Program; Visit Provider Emergency Medicine
DX: J18.9 Pneumonia, unspecified organism (principal); E11.9 Type 2 diabetes mellitus without complications; F41.9 Anxiety disorder, unspecified; F32.A Depression, unspecified; E28.2 Polycystic ovarian syndrome; F43.10 Post-traumatic stress disorder, unspecified; F17.210 Nicotine dependence, cigarettes, uncomplicated; J45.909 Unspecified asthma, uncomplicated; Z88.1 Allergy status to other antibiotic agents; Z79.899 Other long term (current) drug therapy; Z79.85 Long-term (current) use of injectable non-insulin antidiabetic drugs; Z90.49 Acquired absence of other specified parts of digestive tract
CPT/HCPCS: 71046; 87631; 99282

== ENCOUNTER 2024-06-02 15:12 | Inpatient (IN) | payer MEDICAID, SELFPAY ==
[2024-06-02] VITALS (13 sets, daily range): BP systolic 116–158; BP diastolic 82–111; PULSE 11–124; RESP 12–30; TEMP 36.4–37.2; O2SAT 92–100; BMI 54.5; BMI 54.0
--- NOTE | 2024-06-02 15:18 | EKG12_ITS ---
Test Reason : SOB Blood Pressure : */* mmHG Vent. Rate : 123 BPM Atrial Rate : 123 BPM P-R Int : 134 ms QRS Dur : 80 ms QT Int : 314 ms P-R-T Axes : 39 18 37 degrees QTcB Int : 449 ms Sinus tachycardia Inferior infarct , age undetermined Cannot rule out Anterolateral infarct , age undetermined Abnormal ECG Confirmed by Nile Escobedo ([id number]), associate entertainment editor SYEDA SOLIS ([id number]) on 06/04/2024 10:59:26 AM Referred By: Confirmed By: Nile Escobedo
--- NOTE | 2024-06-02 15:27 | EDS_ITS ---
HPI History of Present Illness Chief Complaint: Shortness of Breath Detail of Chief Complaint: Shortness of breath started today. She had dyspnea on exertion the past se Informant: patient and other (Received call from nurse practitioner [facility] urgent care) Onset/Context/Timing Onset: Weeks Timing: Continuous Quality: Positive for Dyspnea on exertion; Negative for Orthopnea or Wheezing Current Severity: Moderate Maximum Severity: Severe Worsened by: Exertion Relieved by: Nothing Associated Symptoms cough Chest Pain: Positive for Intermittent and Pleuritic Narrative Narrative: Patient is a 39-year-old woman whose BMI is greater than 40 and presents from urgent care. She was thought earlier in May to have upper respiratory infection. She was seen twice at the [facility] urgent care. She apparently looked pale and lips were cyanotic. The nurse practitioner at the urgent care got a stat CT of the chest, CTA. This reveals significant bilateral pulmonary embolus with large clot burden and right heart strain. Apparently patient drove herself to the emergency department. She states she cannot patient appears pale. Her lips are discolored. Her vitals were noted. She can only walk 5-10 feet without stopping and gasping for breath. Contacted Dr. Peewee Garza regarding patient and discussion regarding tPA versus thrombectomy and transferring. He informed the Dr. Streeter does pulmonary thrombectomy. He was paged. Spoke to his nurse. He is presently doing the procedure. She will relay the message to him. Await callback. PE Risk Factors: Negative for Cancer, OCP + Smoking + > 35, Prior DVT or PE, Recent immobilization, Recent surgery or Recent travel Prior similar symptoms: No PFSH PFSH Medical History PTSD (post-traumatic stress disorder) Interstitial cystitis Migraine Diabetes Endometriosis PCOS (polycystic ovarian syndrome) Asthma Anxiety and depression Home Medications ?Medication ?Instructions ?Recorded ?Last Taken ?Type bupropion HCl 150 mg tablet,12 hr 150 mg PO BID DEPRESSION 02/17/16 10/16/18 History sustained-release celecoxib 100 mg capsule 100 mg PO BID 02/17/16 06/02/24 History lorazepam 0.5 mg tablet 0.5 mg PO BID PRN Anxiety 02/17/16 Unknown History cholecalciferol (vitamin D3) 50 50,000 unit PO WE 11/12/17 10/16/18 History mcg (2,000 unit) capsule budesonide-formoterol HFA 160 2 puff inhalation BID PRN Asthma 11/17/18 Unknown History mcg-4.5 mcg/actuation aerosol inhaler fesoterodine 4 mg tablet,extended 4 mg PO DAILY 09/02/19 Unknown History release 24 hr (Toviaz) cetirizine 10 mg capsule 10 mg PO DAILY PRN allergy symptoms 10/23/19 Unknown History nystatin 100,000 unit/gram topical 1 applic topical BID PRN skin folds 10/23/19 Unknown History powder sertraline 100 mg tablet 100 mg PO DAILY 10/23/19 Unknown History hydroxychloroquine 200 mg tablet 200 mg PO BID 08/21/23 06/02/24 History albuterol sulfate 90 mcg/actuation 2 puff inhalation Q4H PRN 06/02/24 Unknown History aerosol inhaler shortness of breath or wheezing amoxicillin 875 mg-potassium 1 tab PO BID 06/02/24 06/02/24 History clavulanate 125 mg tablet cyclobenzaprine 10 mg tablet 10 mg PO TID PRN Muscle Spasm 06/02/24 Unknown History dulaglutide 4.5 mg/0.5 mL 4.5 mg subcut WE 06/02/24 Unknown History subcutaneous pen injector (Trulicity) ferrous sulfate 140 mg (45 mg 140 mg PO BID 06/02/24 Unknown History iron) tablet,extended release (Slow Release Iron) Allergy/AdvReac Type Severity Reaction Status Date / Time nickel Allergy Severe swelling Verified 06/02/24 15:13 cephalexin Allergy Itching Verified 06/02/24 15:13 duloxetine (From Cymbalta) AdvReac Other Verified 06/02/24 15:13 fluoxetine (From Prozac) AdvReac HALLUCINATI Verified 06/02/24 15:13 ONS gabapentin AdvReac headache Verified 06/02/24 15:13 Family History Unknown CVA (cerebral vascular accident) Myocardial infarction Uterine cancer Congestive heart disease Surgical History delivery delivered Encounter for Essure implantation History of endometrial ablation History of LAVH History of right oophorectomy Hx of cholecystectomy Social History Smoking Status: Current some day smoker tobacco type: cigarettes alcohol intake: never substance use type: does not use caffeine: Yes what type of physical activity do you participate in: walking seatbelt use: always do you feel safe at home: Yes 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: - 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 ROS ED Constitutional Constitutional ED: Denies chills, fever(s) or sweats Eyes Eyes: Denies blurry vision or change in vision ENT ENT ED: Denies ear pain, rhinorrhea or sore throat Cardiovascular Cardiovascular: Reports chest pain and racing heartbeat; Denies orthopnea, palpitations or paroxysmal nocturnal dyspnea Respiratory/Chest Respiratory/Chest: Reports cough, dyspnea and dyspnea on exertion; Denies orthopnea or paroxysmal nocturnal dyspnea Gastrointestinal Gastrointestinal: Denies abdominal pain, nausea or vomiting Genitourinary Genitourinary ED: Denies dysuria, hematuria or urinary frequency Musculoskeletal Musculoskeletal: Denies arthralgias or myalgias Integumentary Denies rash Neurologic Neurologic: Denies headache(s) or paresthesias Endocrine Endocrinology: Denies cold intolerance or heat intolerance Hematologic/Lymphatic Hematologic/Lymphatic: Denies easy bleeding or easy bruising Allergic/Immunologic Allergic/Immunologic ED: Denies mouth swelling or tongue swelling EXAM Physical Exam Const Vital Signs: 06/02/24 15:13 06/02/24 16:00 06/02/24 16:17 Temperature 98.1 F Temperature Source Oral Pulse Rate 124 H 117 H Respiratory Rate 20 H 12 Respiratory Effort Short of Breath Respiratory Depth Normal Respiratory Pattern Normal Blood Pressure 158/111 H 145/96 H Blood Pressure Mean 126 112 Pulse Ox 100 100 Oxygen Delivery Method Room Air Room Air Room Air 06/02/24 17:34 Temperature 98.1 F Temperature Source Pulse Rate 106 H Respiratory Rate 22 H Respiratory Effort Respiratory Depth Respiratory Pattern Blood Pressure 129/83 H Blood Pressure Mean 98 Pulse Ox 98 Oxygen Delivery Method Positive well nourished, well developed and obese General Appearance ED: well developed; Negative for NAD Nutritional Appearance: obese HEENT Reports dry mucous membranes HEENT Narrative: Patient appears pale. She appears much older than what her vital signs would indicate. Mouth ED: Yes dry mucous membranes Mouth: dry mucous membranes Eyes PERRL and EOMs intact bilaterally General Eye ED: Negative for pale conjunctiva or scleral icterus Neck no lymphadenopathy, supple, no meningeal signs and no JVD Resp normal respiratory effort and clear to auscultation bilaterally Cardio regular rate, regular rhythm, S1 normal heart sound, S2 normal heart sound and no murmurs GI non-tender, non-distended and no masses Palpation: soft Back/Spine no CVA tenderness Extremity normal to inspection General Extremety ED: Negative for edema or tenderness General Extremity: Negative for edema Neuro oriented x3 and CN's II-XII intact bilaterally [place] Coma Scale: document GCS findings Spontaneous Obeys Commands Oriented 15 Sensorium / Orientation: alert Psych mental status grossly normal Skin Skin Narrative: Patient appears pale. She does not appear well. Her lips are discolored. They are not cyanotic but they are not pink either. MDM MDM MDM Narrative Medical decision making narrative: Patient with known bilateral pulmonary embolus with large clot burden and right heart strain. Dr. Peewee Garza was contacted as well as Dr. Joe Streeter. Appropriate labs workup was initiated. Patient was anticoagulant heparin. She received bolus. Patient require admission. History & Record Review Additional record(s) reviewed:: Prior inpatient record, Prior outpatient record and Prior labs Lab Data Attestation: I reviewed the patient's lab results. Lab results narrative: CBC reveals elevated white count. Patient's H&H is 9.0 and 33.0. Most recent H&H for review was 2020. Was 12.2. She at that time had a hysterectomy due to menorrhagia per review of inpatient/operative note. Labs: Laboratory Results - last 24 hr 06/02/24 06/02/24 15:30 17:10 WBC 14.6 H RBC 5.03 Hgb 9.0 L Hct 33.0 L MCV 65.6 L MCH 17.9 L MCHC 27.3 L RDW Std Deviation 41.1 RDW Coeff of Anya 17.9 H Plt Count 367 MPV 9.0 Immature Gran % (Auto) 0.600 Neut % (Auto) 76.9 H Lymph % (Auto) 15.3 L [place] % (Auto) 5.1 Eos % (Auto) 1.5 Baso % (Auto) 0.6 Absolute Neuts (auto) 11.2 H Absolute Lymphs (auto) 2.23 Nucleated RBC % 0 PT 14.3 INR 1.1 APTT 24.8 Sodium 137 Potassium 3.8 Chloride 106 Carbon Dioxide 26.0 Anion Gap 5 BUN 9 Creatinine 0.92 Estim Creat Clear Calc 115.41 Est GFR (MDRD) Af Amer 88 Est GFR (MDRD) Non-Af 73 BUN/Creatinine Ratio 9.8 L Glucose 141 H Lactic Acid 1.4 Calcium 9.2 Troponin I High Sens 514 H* B-Natriuretic Peptide 71.1 Lactate is normal. Troponin is elevated 514. BMP was normal. Plan is admit ICU with echocardiogram to be performed to determine if thrombectomy is appropriate. Radiography Diagnostic Testing: CT a of the chest reveals bilateral pulmonary emboli involving the right and left main and multiple branches. There is straightening of the right atrium. This would suggest right heart strain. CTA was independently reviewed by me since it was performed at an outside facility. EKG Initial EKG: Attestation: I personally reviewed and interpreted this EKG as follows: Interpretation: Sinus Tachycardia (Heart rate is 123. FL was 134 ms per cures duration 80 ms per QT duration 3 and 14 ms. [place] is normal. Patient has ST-T wave changes) Management Discussion w/another healthcare provider: Hospitalist (Hospitalist was made aware of conversation with Dr. Peewee Garza, vascular and Dr. Streeter's nurse practitioner. Patient be admitted to the ICU.), [employer] and Other (Spoke with Dr. Streeter's nurse practitioner. Should be down to see patient. She requested a troponin and BNP. This was ordered.) Critical Care Time Critical Care Time: Yes Critical care time (excluding procedures): 30-74 minutes (32), Including time spent: (History, physical, documentation, review of outside records from [facility]), Discussing w/Patient &/or Family/Scientist/Engineer, Discussing w/Consultants (Nurse practitioner at [facility], Dr. Peewee Garza, Dr. Joe Streeter) and Arranging Admission or Transfer (Hospitalist for admission) Discharge Plan Dx/Rx/DC Orders Clinical Impression: Bilateral pulmonary embolism, Sinus tachycardia seen on playground monitor Disposition Disposition: Acute Care Hospital [facility] Discharge Date/Time: 06/02/24 18:00
[2024-06-02 15:37] LABS: Absolute Lymphocyte Count 2.23 X10^3/uL (0.83-4.51); Absolute Neutrophil Count 11.2 X10^3/uL (2.0-7.7); Basophil# 0.09 X10^3/uL; Basophil% 0.6 % (0-1); Eosinophil# 0.22 X10^3/uL; Eosinophils% 1.5 % (0-5); Lymphocyte # 2.23 X10^3/ul (0.83-4.51); Lymphocyte % 15.3 % (19-41); Mean Corp Hgb Conc 27.3 g/dL (32-36); Mean Corpuscular Hgb 17.9 pg (27.0-32.0); Mean Corpuscular Volume 65.6 fL (81-99); Monocyte# 0.75 X10^3/uL; Monocyte% 5.1 % (0-10); NRBC Flagged by Analyzer 0 % (0-5); Neutrophil # 11.22 X10^3/uL (2.7-7.7); Neutrophil % 76.9 % (47-70); Platelet Count 367 K/mm3 (150-450); RBC Distribution Width CV 17.9 % (11.6-14.6); RBC Distribution Width SD 41.1 fl (35.1-43.9); Red Blood Count 5.03 M/mm3 (4.2-5.4); White Blood Count 14.6 K/mm3 (4.4-11.0)
[2024-06-02 15:56] LABS: International Normalized Ratio 1.1; Partial Thromboplast Time 24.8 Seconds (24.1-36.2); Prothrombin Time (Protime)PT. 14.3 SECONDS (11.7-14.9)
[2024-06-02 16:01] LABS: Anion Gap 5 (5-15); BUN 9 mg/dL (7-18); BUN/Creat Ratio 9.8 RATIO (10-20); Calcium,Total 9.2 mg/dL (8.5-10.1); Chloride 106 mmol/L (98-107); Creatinine, Serum 0.92 mg/dL (0.55-1.02); EST Glomerular Filtration Rate 73 mL/min (>60); Est Glom Filt Rate - Afr Amer 88 mL/min (>60); Estimated Creatinine Clearance 115.41 ml/min; Glucose 141 mg/dL (74-106); Potassium 3.8 mmol/L (3.5-5.1); Sodium Level 137 mmol/L (136-145)
[2024-06-02] MEDS: Heparin Injection (Vial) 5,000 UNIT/ML VIAL 11000 UNIT IV (16:05)
[2024-06-02] MEDS: HEPARIN/D5w 25,000 UNITS 25,000 UNITS/250 ML IV.SOLN. 18 UNITS CONT INF (16:15)
--- NOTE | 2024-06-02 17:28 | EX.PCM.CON.S ---
Assessment & Plan Assessment/Plan (1) Bilateral pulmonary embolism: PLAN: Case and CT images reviewed with Dr. Streeter. Patient has bilateral PEs, some extension into the main pulmonary arteries though majority of the clot burden is more distal. There was evidence of right heart strain on CT. She would be a candidate for thrombectomy. At present, she is tachycardic but not hypotensive and she is saturating well on room air. At rest, she is not having chest pain or significant dyspnea. As she is hemodynamically stable and symptoms are showing some improvement, plan to continue to monitor for now and obtain further workup. Plan is for admission to hospitalist service on heparin drip. NPO after midnight. BNP and troponin are pending. Will order echocardiogram to better assess RV strain and bilateral lower extremity venous duplex to be completed tomorrow. Will plan to reassess tomorrow after this testing to determine if thrombectomy is indicated. Patient's questions were addressed and she is content with this plan, she indicates that she would prefer to avoid a procedure if possible. HPI Consult Data Date of Consult: 06/02/24 HPI Narrative HPI Narrative: UCHE BRAVO, is a 39 F who presented to her PCP today with significant SHOEMAKER and reportedly cyanotic lips, they ordered a stat outpatient CTA chest (completed at [facility], images in PACS) which showed bilateral PE and right heart strain so she was referred to the ER. In the ER, she has been saturating greater than 95% on room air at rest. She is tachycardic but normotensive. Troponin and BNP pending. She reports that in general her respiratory symptoms go back about 3 weeks. At that time she started with cough, congestion, and sensation of chest tightness. She was seen in the ER on 05/23/2024, she tested negative for COVID/flu/RSV at that time. She was treated for bronchitis with a prednisone taper and albuterol inhaler. She reports her cough and congestion improved but still had some lingering chest tightness. Then 05/31/2024, she reports she noticed new increasing shortness of breath particularly with exertion along with intermittent sharp chest pain/burning with exertion. Reports a cut to the point where she could not take more than 5-10 steps without feeling severely short of breath and like she needed to stop to catch her breath. She reports maybe last week she had noticed some right calf discomfort, but this fully resolved and at current denies any lower extremity pain/new swelling/redness/warmth. At present, she is resting fairly comfortably in bed. She reports that her chest pain and shortness of breath have improved since the heparin drip was started. She currently does not feel short of breath just resting and talking, but thinks she would if she were to get up and walk. She currently does not have chest pain. She denies any prior history of DVT or PE. She reports that she did have some reduced activity since about 3 weeks ago, but still was trying to go to work when she could, grocery shop, etc. She otherwise denies any recent injury, surgery, travel. She reports family history of clots, notably in her father and notes that there was talk of him undergoing hypercoagulable workup but she is not sure if this was ever completed. She reports family history of a variety of cancers though not sure exactly which types and unclear ages of onset. She reports she is up-to-date on her age and risk factor appropriate cancer screenings. Her medical history is otherwise significant for asthma, type 2 diabetes, hyperlipidemia, hypertension, obstructive sleep apnea, PCOS, endometriosis, fibromyalgia. [facility]LY [facility] Medical History PTSD (post-traumatic stress disorder) Interstitial cystitis Migraine Diabetes Endometriosis PCOS (polycystic ovarian syndrome) Asthma Anxiety and depression Home Medications ?Medication ?Instructions ?Recorded ?Last Taken ?Type bupropion HCl 150 mg tablet,12 hr 150 mg PO BID DEPRESSION 02/17/16 10/16/18 History sustained-release celecoxib 100 mg capsule 100 mg PO BID 02/17/16 06/02/24 History lorazepam 0.5 mg tablet 0.5 mg PO BID PRN Anxiety 02/17/16 Unknown History cholecalciferol (vitamin D3) 50 50,000 unit PO WE 11/12/17 10/16/18 History mcg (2,000 unit) capsule budesonide-formoterol HFA 160 2 puff inhalation BID PRN Asthma 11/17/18 Unknown History mcg-4.5 mcg/actuation aerosol inhaler fesoterodine 4 mg tablet,extended 4 mg PO DAILY 09/02/19 Unknown History release 24 hr (Toviaz) cetirizine 10 mg capsule 10 mg PO DAILY PRN allergy symptoms 10/23/19 Unknown History nystatin 100,000 unit/gram topical 1 applic topical BID PRN skin folds 10/23/19 Unknown History powder sertraline 100 mg tablet 100 mg PO DAILY 10/23/19 Unknown History hydroxychloroquine 200 mg tablet 200 mg PO BID 08/21/23 06/02/24 History albuterol sulfate 90 mcg/actuation 2 puff inhalation Q4H PRN 06/02/24 Unknown History aerosol inhaler shortness of breath or wheezing amoxicillin 875 mg-potassium 1 tab PO BID 06/02/24 06/02/24 History clavulanate 125 mg tablet cyclobenzaprine 10 mg tablet 10 mg PO TID PRN Muscle Spasm 06/02/24 Unknown History dulaglutide 4.5 mg/0.5 mL 4.5 mg subcut WE 06/02/24 Unknown History subcutaneous pen injector (Trulicity) ferrous sulfate 140 mg (45 mg 140 mg PO BID 06/02/24 Unknown History iron) tablet,extended release (Slow Release Iron) Allergy/AdvReac Type Severity Reaction Status Date / Time nickel Allergy Severe swelling Verified 06/02/24 15:13 cephalexin Allergy Itching Verified 06/02/24 15:13 duloxetine (From Cymbalta) AdvReac Other Verified 06/02/24 15:13 fluoxetine (From Prozac) AdvReac HALLUCINATI Verified 06/02/24 15:13 ONS gabapentin AdvReac headache Verified 06/02/24 15:13 Family History Unknown CVA (cerebral vascular accident) Myocardial infarction Uterine cancer Congestive heart disease Surgical History delivery delivered Encounter for Essure implantation History of endometrial ablation History of LAVH History of right oophorectomy Hx of cholecystectomy Social History Smoking Status: Current some day smoker tobacco type: cigarettes alcohol intake: never substance use type: does not use caffeine: Yes what type of physical activity do you participate in: walking seatbelt use: always do you feel safe at home: Yes 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: - 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 Physical Exam Const alert, oriented x3 and no limitations General Appearance: cooperative HEENT normocephalic, hearing grossly normal bilaterally, external ears normal and external nose normal Head and Scalp: normal to inspection External Ear: external ears normal Eyes PERRL and EOMs intact bilaterally General Eye: normal appearance of both eyes Neck General: normal visual inspection and trachea midline Resp normal respiratory effort, no retractions and no use of accessory muscles Effort and Inspection: able to speak in complete sentences; Negative for labored, grunting or audible wheezes Cardio Rate: tachycardic Rhythm: regular rhythm Extremity Extremity Narrative: BLE 1+, no pain to palpation of bilateral calves, no significant erythema/warmth appreciated Skin no rashes or lesions noted Neuro oriented x3, CN's II-XII intact bilaterally, moves all extremities and no focal motor deficits Speech: speech normal Psych mental status grossly normal Appearance: grossly normal Attitude: calm and engaged Activity / Motor Behavior: appropriate eye contact Speech: normal speech Mood & Affect: euthymic mood Judgement: judgement good Lab / Micro Data 06/02/24 15:30 06/02/24 15:30 Labs: Laboratory Results - last 24 hr 06/02/24 15:30: WBC 14.6 H, RBC 5.03, Hgb 9.0 L, Hct 33.0 L, MCV 65.6 L, MCH 17.9 L, MCHC 27.3 L, RDW Std Deviation 41.1, RDW Coeff of Anya 17.9 H, Plt Count 367, MPV 9.0, Immature Gran % (Auto) 0.600, Neut % (Auto) 76.9 H, Lymph % (Auto) 15.3 L, [place] % (Auto) 5.1, Eos % (Auto) 1.5, Baso % (Auto) 0.6, Absolute Neuts (auto) 11.2 H, Absolute Lymphs (auto) 2.23, Nucleated RBC % 0, PT 14.3, INR 1.1, APTT 24.8, Sodium 137, Potassium 3.8, Chloride 106, Carbon Dioxide 26.0, Anion Gap 5, BUN 9, Creatinine 0.92, Estim Creat Clear Calc 115.41, Est GFR (MDRD) Af Amer 88, Est GFR (MDRD) Non-Af 73, BUN/Creatinine Ratio 9.8 L, Glucose 141 H, Calcium 9.2 Charges/Coding Visit Charges Inpatient E&M: 48300 Init Hosp L2
[2024-06-02 17:32] LABS: BNP,B-Type NATRIURETIC PEPTIDE 71.1 pg/mL (0-100)
[2024-06-02 17:44] LABS: Troponin-I HS 514 pg/mL (3.0-54.0)
--- NOTE | 2024-06-02 17:51 | PCM.HP.STD ---
HPI - General General Date of Admission: 06/02/24 Date of Service: 06/02/24 Chief Complaint: Shortness of breath, dizziness HPI Narrative UCHE BRAVO, is a 39 F with a history of anxiety and depression, asthma, obesity who presented [facility] ED 06/02/2024 from her outpatient physician office after a CTA found blood clots and right heart strain. 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 Patient placed on heparin drip. Hospitalist contacted for admission to ICU with vascular consultation. Patient evaluated bedside and reports that she started feeling unwell May 21 and was given prednisone and it was thought she had a viral illness, she was not feeling better and went back and was told that she had something viral and no further treatment indicated and went home. After that time she continued to worsen so she went back and was placed on Augmentin which she is still on however has continued to deteriorate. She has been lightheaded and dizzy and so short of breath that she can barely move. Does endorse some right calf pain over the past few days with achiness when she is walking though feels slightly better today but she does not note any swelling in her lower extremities or erythema. Her lightheaded and dizziness has been worse over the the past several days as has the shortness of breath. She has been having burning in her chest with sharp pains that are worse with cold and inspiration and this has been intermittent over the past week or so and feels slightly better as she is sitting in the ED. She denies any fevers or chills, no other new or acute complaints [facility] Medical History PTSD (post-traumatic stress disorder) Interstitial cystitis Migraine Diabetes Endometriosis PCOS (polycystic ovarian syndrome) Asthma Anxiety and depression Home Medications ?Medication ?Instructions ?Recorded ?Last Taken ?Type bupropion HCl 150 mg tablet,12 hr 150 mg PO BID DEPRESSION 02/17/16 10/16/18 History sustained-release celecoxib 100 mg capsule 100 mg PO BID 02/17/16 06/02/24 History lorazepam 0.5 mg tablet 0.5 mg PO BID PRN Anxiety 02/17/16 Unknown History cholecalciferol (vitamin D3) 50 50,000 unit PO WE 11/12/17 10/16/18 History mcg (2,000 unit) capsule budesonide-formoterol HFA 160 2 puff inhalation BID PRN Asthma 11/17/18 Unknown History mcg-4.5 mcg/actuation aerosol inhaler fesoterodine 4 mg tablet,extended 4 mg PO DAILY 09/02/19 Unknown History release 24 hr (Toviaz) cetirizine 10 mg capsule 10 mg PO DAILY PRN allergy symptoms 10/23/19 Unknown History nystatin 100,000 unit/gram topical 1 applic topical BID PRN skin folds 10/23/19 Unknown History powder sertraline 100 mg tablet 100 mg PO DAILY 10/23/19 Unknown History hydroxychloroquine 200 mg tablet 200 mg PO BID 08/21/23 06/02/24 History albuterol sulfate 90 mcg/actuation 2 puff inhalation Q4H PRN 06/02/24 Unknown History aerosol inhaler shortness of breath or wheezing amoxicillin 875 mg-potassium 1 tab PO BID 06/02/24 06/02/24 History clavulanate 125 mg tablet cyclobenzaprine 10 mg tablet 10 mg PO TID PRN Muscle Spasm 06/02/24 Unknown History dulaglutide 4.5 mg/0.5 mL 4.5 mg subcut WE 06/02/24 Unknown History subcutaneous pen injector (Trulicity) ferrous sulfate 140 mg (45 mg 140 mg PO BID 06/02/24 Unknown History iron) tablet,extended release (Slow Release Iron) Allergy/AdvReac Type Severity Reaction Status Date / Time nickel Allergy Severe swelling Verified 06/02/24 15:13 cephalexin Allergy Itching Verified 06/02/24 15:13 duloxetine (From Cymbalta) AdvReac Other Verified 06/02/24 15:13 fluoxetine (From Prozac) AdvReac HALLUCINATI Verified 06/02/24 15:13 ONS gabapentin AdvReac headache Verified 06/02/24 15:13 Family History Unknown CVA (cerebral vascular accident) Myocardial infarction Uterine cancer Congestive heart disease Surgical History delivery delivered Encounter for Essure implantation History of endometrial ablation History of LAVH History of right oophorectomy Hx of cholecystectomy Social History Smoking Status: Current some day smoker tobacco type: cigarettes alcohol intake: never substance use type: does not use caffeine: Yes what type of physical activity do you participate in: walking seatbelt use: always do you feel safe at home: Yes 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: - 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 ROS Narrative General: Denies fever/chills HENT: Denies headache, denies stuffy nose, denies sore throat EYES: Denies changes in vision Resp: Slight dry cough, increasing shortness of breath Cardiac: Some chest burning and sharp pain with inspiration GI: Denies abdominal pain, denies changes in bowel, denies nausea/vomiting : Denies changes in urination Extremity: Denies swelling MSK: Has had some right calf discomfort especially when walking Neuro: Denies any numbness/tingling Heme: Denies any bleeding or bruising Skin: Denies rashes Psychiatric: No complaints voiced Vital Signs Vital Signs Vital Signs: 06/02/24 15:13 06/02/24 16:00 06/02/24 16:17 Temperature 98.1 F Temperature Source Oral Pulse Rate 124 H 117 H Respiratory Rate 20 H 12 Respiratory Effort Short of Breath Respiratory Depth Normal Respiratory Pattern Normal Blood Pressure 158/111 H 145/96 H Blood Pressure Mean 126 112 Pulse Ox 100 100 Oxygen Delivery Method Room Air Room Air Room Air 06/02/24 17:34 Temperature 98.1 F Temperature Source Pulse Rate 106 H Respiratory Rate 22 H Respiratory Effort Respiratory Depth Respiratory Pattern Blood Pressure 129/83 H Blood Pressure Mean 98 Pulse Ox 98 Oxygen Delivery Method Weight Weight: 139.7 kg Body Mass Index (BMI) 54.5 Physical Exam Narrative General: Alert, oriented, appears unwell and is very pale HEENT: Atraumatic, normocephalic Eyes: Anicteric, normal conjunctiva, extraocular movements grossly intact Neck: Supple Respiratory: Slight increased respiratory effort, no wheezes or rhonchi bilaterally Cardiovascular: Sinus tachycardia GI: Soft, nontender, nondistended Extremities: No focal edema Musculoskeletal: Moving all extremities Neuro: No overt focal neurological deficits Skin: No rashes appreciated Psych: Cooperative Results Lab / Micro Data 06/02/24 15:30 06/02/24 15:30 Labs: Laboratory Results - last 24 hr 06/02/24 15:30: WBC 14.6 H, RBC 5.03, Hgb 9.0 L, Hct 33.0 L, MCV 65.6 L, MCH 17.9 L, MCHC 27.3 L, RDW Std Deviation 41.1, RDW Coeff of Anya 17.9 H, Plt Count 367, MPV 9.0, Immature Gran % (Auto) 0.600, Neut % (Auto) 76.9 H, Lymph % (Auto) 15.3 L, [place] % (Auto) 5.1, Eos % (Auto) 1.5, Baso % (Auto) 0.6, Absolute Neuts (auto) 11.2 H, Absolute Lymphs (auto) 2.23, Nucleated RBC % 0, PT 14.3, INR 1.1, APTT 24.8, Sodium 137, Potassium 3.8, Chloride 106, Carbon Dioxide 26.0, Anion Gap 5, BUN 9, Creatinine 0.92, Estim Creat Clear Calc 115.41, Est GFR (MDRD) Af Amer 88, Est GFR (MDRD) Non-Af 73, BUN/Creatinine Ratio 9.8 L, Glucose 141 H, Calcium 9.2, Troponin I High Sens 514 H*, B-Natriuretic Peptide 71.1 Assessment & Plan Assessment/Plan (1) Bilateral pulmonary embolism: PLAN: Plan # Bilateral pulmonary embolism -Seen on CTA and patient had noted right heart strain -Patient started on heparin drip in the ED, will continue this -Troponin elevated at 529 with a BNP of 71 -Additionally EKG with sinus tachycardia and patient has S1Q3T3 pattern -Patient still tachycardic but not hypotensive -Vascular surgery evaluated and consult and given she is not hypotensive and is saturating well on room air and symptoms are improving slightly with just heparin plan is to monitor for now and make n.p.o. at midnight and obtain echocardiogram and lower extremity duplex and readdress thrombectomy tomorrow if it is indicated -Echocardiogram and lower extremity duplex ordered # Anemia -Patient with hemoglobin of 9 however no recent baseline with last values within normal limits back in 2019 -Patient significantly microcytic with an MCV of 65.6 -Order iron studies, reticulocyte count, LDH, haptoglobin -Recheck CBC in the a.m. -She did not endorse any overt or ongoing blood loss #Depression/anxiety -Continue Zoloft and Ativan as needed # Asthma -Continue home inhalers #Morbid obesity -BMI documented as 54 kg/m? at time of admission -Complicates treatment, prognosis, outcomes -Recommend weight loss and lifestyle changes #DVT ppx: On heparin drip Qing Love MD Charges/Coding Visit Charges Inpatient E&M: 45801 Init Hosp L2
[2024-06-02 17:59] LABS: Lactic Acid 1.4 mmol/L (0.4-1.9)
--- NOTE | 2024-06-02 18:05 | ECHOCS_ITS ---
Reason For Study: EMBOLI Procedure This was a 2D Doppler, Color Flow transthoracic echocardiogram. The study was technically difficult. Due to body habitus. Contrast injection was performed. Exam performed portable in ICU/CCU. Left Ventricle Normal LV size. The estimated ejection fraction is 60 %. No evidence for diastolic dysfunction. No regional wall motion abnormalities noted. Right Ventricle Severely dilated right ventricle. Moderately decreased right ventricular systolic function. Atria The left and right atria are normal. No doppler evidence for ASD. Mitral Valve There is no mitral valve stenosis. No mitral valve insufficiency. Tricuspid Valve There is no tricuspid stenosis. Trivial tricuspid valve insufficiency. Pulmonary artery systolic pressure is 50 mmHg. Aortic Valve Trisinus/trileaflet aortic valve. There is no aortic stenosis. No aortic valve insufficiency. Pulmonic Valve There is no pulmonic valvular stenosis. No pulmonic valve insufficiency. Great Vessels Normal aortic root. Pericardium/Pleural No pericardial effusion. Medication Diluted definity 4.0ml given slow IV push to enhance endocardial definition. MMode/2D Measurements & Calculations LVIDd: 4.6 cm IVSd: 1.1 cm LVOT diam: 2.0 cm LVIDs: 2.7 cm LVPWd: 1.0 cm RVDd: 3.4 cm FS: 41.8 % LVOT area: 3.3 cm2 Ao root diam: 2.9 cm asc Aorta Diam: 2.9 cm LAV(MOD-sp4): 62.0 ml LA dimension: 3.2 cm LVAd ap4: 24.7 cm2 SV(MOD-sp4): 30.8 ml SV(sp4-el): 32.4 ml LVLd ap4: 8.1 cm SI(MOD-sp4): 13.3 ml/m2 EDV(MOD-sp4): 62.2 ml EDV(sp4-el): 63.9 ml LVAs ap4: 16.9 cm2 LVLs ap4: 7.7 cm ESV(MOD-sp4): 31.4 ml ESV(sp4-el): 31.5 ml EF(MOD-sp4): 49.5 % EF(sp4-el): 50.7 % LA A4 area: 21.5 cm2 RA A4 area: 20.3 cm2 TAPSE: 1.7 cm Time Measurements MV dec time: 0.20 sec Doppler Measurements & Calculations MV E max giorgi: 71.3 cm/sec Lat Peak E' Giorgi: 16.9 cm/sec Med Peak E' Giorgi: 12.2 cm/sec MV A max giorgi: 75.2 cm/sec E/E' lat: 4.2 E/E' med: 5.8 MV E/A: 0.95 MV V2 max: 83.1 cm/sec MV P1/2t max giorgi: 72.4 cm/sec Ao V2 max: 142.9 cm/sec MV max P.8 mmHg MV P1/2t: 59.2 msec Ao max P.2 mmHg MV V2 mean: 55.5 cm/sec Ao V2 mean: 93.2 cm/sec MV mean P.4 mmHg MV dec slope: 358.6 cm/sec2 Ao mean P.0 mmHg MV V2 VTI: 14.5 cm MVA(P1/2t): 3.7 cm2 Ao V2 VTI: 19.2 cm AV (velocity ratio): 0.77 MVA(VTI): 3.4 cm2 OMKAR(I,D): 2.5 cm2 OMKAR(V,D): 2.5 cm2 LV V1 max: 107.2 cm/sec SV(LVOT): 48.5 ml PA V2 max: 91.2 cm/sec LV V1 max P.6 mmHg LV V1 mean P.5 mmHg LV V1 mean: 75.8 cm/sec LV V1 VTI: 14.8 cm TR max giorgi: 336.3 cm/sec TR max P.2 mmHg ECHO/Echo Complete W/ Contrast Interpretation Summary The estimated ejection fraction is 60 %. No evidence for diastolic dysfunction. Severely dilated right ventricle. Moderately decreased right ventricular systolic function Ordering Physician: Qing Love Performed By: Irma Rosenthal RVT, RDCS and Student
--- NOTE | 2024-06-02 18:05 | VDLE_ITS ---
Reason For Study: PE RIGHT LEFT GSV is normal. GSV is normal. CFV is spontaneous, phasic, competent and CFV is compressible, spontaneous, phasic, demonstrates normal augmentation. competent, and demonstrates normal FV is spontaneous, phasic, competent and augmentation. demonstrates normal augmentation. FV is compressible, spontaneous, phasic, Unable to acquire compressions in CFV and FV competent and demonstrates normal due to patient intolerance. Flow documented augmentation. in pulsed wave and color doppler. POP V is compressible, spontaneous, phasic, Acute deep vein thrombosis is noted in the competent and demonstrates normal POP V. It is dilated and NONCOMPRESSIBLE. augmentation. Acute deep vein thrombosis is noted in the T/P Trunk is compressible. T/P Trunk. It is dilated and NONCOMPRESSIBLE. PTV is compressible. LT PerV is compressible. PTV is compressible. Rt Conor V is NONCOMPRESSIBLE. Procedure This is a venous duplex using B-mode, color flow and spectral Doppler. Exam performed portable in ICU/CCU. The exam was diagnostic. A preliminary report was called and/or faxed to ICU handstitching machine armhole feller / Dr. Garza. VL/Venous Duplex US - Papo Extrem Interpretation Summary Acute deep vein thrombosis is noted in the right popliteal vein, tibioperoneal trunk vein, peroneal vein. Deep veins of the left lower extremity are patent and compressible segmentally. There is no evidence of left lower extremity deep vein thrombosis. The bilateral great saphenous vei ns appear patent and compressible segmentally. Ordering Physician: Qing Love Referring Physician: Misbah Ford Performed By: Mark Baeza RVT
[2024-06-02 19:20] LABS: Troponin-I HS 529 pg/mL (3.0-54.0)
[2024-06-02 21:18] LABS: Troponin-I HS 431 pg/mL (3.0-54.0)
[2024-06-02 22:24] LABS: Partial Thromboplast Time 137.5 Seconds (24.1-36.2)
[2024-06-03] VITALS (10 sets, daily range): BP systolic 113–133; BP diastolic 76–85; PULSE 93–114; RESP 16–27; TEMP 36.2–37; O2SAT 94–99; BMI 54.0
[2024-06-03] MEDS: Budesonide Respules 0.5 MG/2 ML AMPUL.NEB. INHALATION ×2 (06:40→19:25)
[2024-06-03] MEDS: Albuterol 2.5 MG/3 ML VIAL.NEB. INHALATION ×2 (06:40→19:25)
[2024-06-03 07:34] LABS: Absolute Lymphocyte Count 3.72 X10^3/uL (0.83-4.51); Absolute Neutrophil Count 9.1 X10^3/uL (2.0-7.7); Basophil# 0.11 X10^3/uL; Basophil% 0.8 % (0-1); Eosinophil# 0.41 X10^3/uL; Eosinophils% 2.9 % (0-5); Hemoglobin 7.9 g/dL (12.0-15.0); Lymphocyte # 3.72 X10^3/ul (0.83-4.51); Lymphocyte % 26.3 % (19-41); Mean Corp Hgb Conc 27.2 g/dL (32-36); Mean Corpuscular Hgb 18.2 pg (27.0-32.0); Mean Corpuscular Volume 66.7 fL (81-99); Mean Platelet Vol. 9.7 fl (6.2-12.0); Monocyte# 0.71 X10^3/uL; NRBC Flagged by Analyzer 0 % (0-5); Neutrophil # 9.11 X10^3/uL (2.7-7.7); Neutrophil % 64.4 % (47-70); Platelet Count 329 K/mm3 (150-450); RET-HE 18.5 pg (30-35); Red Blood Count 4.35 M/mm3 (4.2-5.4); Reticulocyte Count 2.35 % (0.5-1.5); White Blood Count 14.1 K/mm3 (4.4-11.0)
--- NOTE | 2024-06-03 07:44 | PCM.PN.HOSP ---
Reason for Visit Reason for Visit: Diagnoses Other pulmonary embolism without acute cor pulmonale (06/02/24) Subjective Subjective Patient is a 39-year-old lady who presented with shortness of breath CT obtained demonstrated bilateral pulmonary embolism with right heart strain Objective Data Objective Data Vital Signs: Vital Signs Temp Pulse Resp BP Pulse Ox O2 Del Method 98.0 F 93 16 113/85 H 96 Room Air 06/03/24 00:00 06/03/24 00:00 06/03/24 00:00 06/03/24 00:00 06/03/24 00:00 06/03/24 00:46 Oxygen Delivery Method Room Air Weight: 138.4 kg Body Mass Index (BMI) 54.0 Intake & Output: Intake and Output for Last 24 Hours 06/01/24 06/02/24 06/03/24 23:59 23:59 23:59 Intake Total 113.1 / 113.1 0 / 0 Balance 113.1 / 113.1 0 / 0 Lab / Micro Data 06/03/24 04:17 06/03/24 04:17 Labs: Laboratory Results - last 24 hr 06/02/24 15:30: WBC 14.6 H, RBC 5.03, Hgb 9.0 L, Hct 33.0 L, MCV 65.6 L, MCH 17.9 L, MCHC 27.3 L, RDW Std Deviation 41.1, RDW Coeff of Anya 17.9 H, Plt Count 367, MPV 9.0, Immature Gran % (Auto) 0.600, Neut % (Auto) 76.9 H, Lymph % (Auto) 15.3 L, [place] % (Auto) 5.1, Eos % (Auto) 1.5, Baso % (Auto) 0.6, Absolute Neuts (auto) 11.2 H, Absolute Lymphs (auto) 2.23, Nucleated RBC % 0, PT 14.3, INR 1.1, APTT 24.8, Sodium 137, Potassium 3.8, Chloride 106, Carbon Dioxide 26.0, Anion Gap 5, BUN 9, Creatinine 0.92, Estim Creat Clear Calc 115.41, Est GFR (MDRD) Af Amer 88, Est GFR (MDRD) Non-Af 73, BUN/Creatinine Ratio 9.8 L, Glucose 141 H, Calcium 9.2, Troponin I High Sens 514 H*, B-Natriuretic Peptide 71.1 06/02/24 17:10: Lactic Acid 1.4 06/02/24 18:40: Troponin I High Sens 529 H* 06/02/24 20:40: Troponin I High Sens 431 H* 06/02/24 22:00: APTT 137.5 H* 06/03/24 04:17: WBC 14.1 H, RBC 4.35, Hgb 7.9 L, Hct 29.0 L, MCV 66.7 L, MCH 18.2 L, MCHC 27.2 L, RDW Std Deviation 42.0, RDW Coeff of Anya 18.0 H, Plt Count 329, MPV 9.7, Immature Gran % (Auto) 0.600, Neut % (Auto) 64.4, Lymph % (Auto) 26.3, [place] % (Auto) 5.0, Eos % (Auto) 2.9, Baso % (Auto) 0.8, Absolute Neuts (auto) 9.1 H, Absolute Lymphs (auto) 3.72, Nucleated RBC % 0, Retic Count 2.35 H, Immature Retic Fraction 38.90 H, Retic Hgb Equivalent 18.5 L Physical Exam Narrative GENERAL: cooperative HEENT: Atraumatic; normocephalic EYES; Anicteric, Normal Conjunctiva NECK; supple, normal thyroid, RESPIRATORY: Diminished to auscultation CARDIOVASCULAR: Regular S1 S2, GI: soft, normoactive bowel sounds, : No Renal angle tenderness; EXTREMITIES: No edema, no clubbing, MUSCULOSKELETAL: no muscle wasting NEURO: Awake; no lateralizing signs. SKIN: No Rash PSYCH; Flat affect Assessment & Plan Assessment/Plan (1) Bilateral pulmonary embolism: PLAN: Plan Patient is a 39-year-old lady who presented with shortness of breath CT obtained demonstrated bilateral pulmonary embolism with right heart strain 1. Acute bilateral pulmonary embolism ? With right heart strain noted on CT. Patient was found to have elevated troponin as well as BNP. Started on heparin admitted to the intensive care unit consult placed to vascular surgery. Plan is to continue with conservative management with no plans for thrombectomy at this point 2. Anemia ? Complicating care hemoglobin on admission was 9.0 hemoglobin as of 06/03/2024 was 7.9 patient also had microcytosis and elevated RDW consistent with iron deficiency anemia. As part of patient's management iron panel and haptoglobin ordered on admission. Consult was also placed to gastroenterology for possible endoscopic evaluation before committing patient to long-term systemic anticoagulation. Of note patient reports having had hysterectomy in the past 3. Morbid obesity with BMI of 54.0 ? Complicating care weight loss advised 4. Depression with anxiety ? Patient is on Zoloft and Ativan continue 5. Mild intermittent asthma ? Currently not in exacerbation aerosol treatment as needed Time spent in the patient's overall evaluation,decision-making process, review of diagnostic data, adjustment of management, discussion with other providers, nursing nursing and ancillary staff involved in patient's care documentation, 52 Minutes Charges/Coding Visit Charges Inpatient E&M: 52251 Subs Hosp L3
--- NOTE | 2024-06-03 08:16 | EX.PCM.CONCC ---
Assessment & Plan Assessment/Plan (1) Bilateral pulmonary embolism: PLAN: Plan RECOMMENDATIONS: 1. Continue weight-based heparin infusion. 2. If the patient's blood counts remained stable over the next 24 hours, she can be transition to a NOAC. 3. Echocardiogram and lower extremity Doppler study are pending. 4. GI consultation is pending. 5. If the patient becomes progressively anemic on a weight-based heparin infusion, will need to consider IVC filter placement if lower extremity Doppler study is positive. 6. Encourage incentive spirometer use and mobilize patient as tolerated. 7. I do not see an overt indication to proceed with thrombectomy at this time. IMPRESSIONS: 1. Bilateral pulmonary emboli The patient presented to the hospital with progressive shortness of breath in the setting of bilateral pulmonary emboli with radiographic evidence of right heart strain. Follow-up echocardiogram and lower extremity Doppler study are pending. The patient has remained hemodynamically stable and is maintaining appropriate oxygen saturations on room air. Therefore, I do not see an overt indication for pulmonary thrombectomy. Her hospital course has been complicated by worsening anemia, for which GI has been consulted. If the patient's anemia worsens, and she is found to be positive for lower extremity DVT, she will likely require IVC filter placement. For now, continue weight-based heparin infusion. The exact precipitating etiology for the patient's presenting PE is not clear. 2. Anemia The patient initially presented to the hospital with a hemoglobin of 9.0 g/dL, which is decreased to 7.9 g/dL this morning. There are no overt signs of occult blood loss. Gastroenterology has already been consulted to evaluate the patient. In the interim, will initiate her on twice daily PPI therapy. 3. Super morbid obesity/depression/anxiety/self-reported asthma Complicates care, management, recovery and prognosis. Continue home medications as indicated. This note was generated with [employer] dictation software. It may contain incorrect words, spelling, and punctuation that were not noted in checking the note before signing. HPI Consult Data Date of Consult: 06/03/24 HPI Narrative Reason for Consultation: Pulmonary embolism HPI Narrative: The patient is a 39-year-old female, with a history as outlined below, who presented to the emergency department on June 02 with shortness of breath in the setting of pulmonary embolism. The patient reported that beginning at the end of May she began to experience symptoms concerning for bronchitis. She was evaluated on multiple occasions in the office of her PCP and also in our emergency department on May 23. There was initial concern for a viral infection, but ultimately, the patient received an antibiotic treatment course. Although the patient reported that she felt initially better, her shortness of breath worsened this past Saturday and continue to progress into the early week. She was reevaluated in the office of her PCP yesterday morning and a CTA chest was completed. That imaging study demonstrated the presence of bilateral PE with right heart strain. Therefore, the patient was referred to the emergency department for evaluation. The patient denied a history of venous thromboembolic disease. 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 She reported that, at her baseline, she is mobile and active. She denied any recent prolonged travel history. There is no known family history of any hypercoagulable conditions. The patient is not on any oral contraceptives. In fact, she reported that she had a hysterectomy 5 years ago. She does report occasional tobacco use. The patient denied a history of anemia. She has no known history of peptic ulcer disease. She denied any melena or bright red blood per rectum. On presentation to the emergency department, the patient was documented to be afebrile and hemodynamically stable. She was notably tachycardic and tachypneic. Laboratory evaluation revealed a white blood cell count of 14,000. Initial hemoglobin was noted to be 9.0 g/dL. Repeat hemoglobin from this morning was noted to be 7.9 g/dL. In light of the patient's bilateral PEs, the patient was initiated on a weight-based heparin infusion. Vascular surgery consultation was obtained for potential thrombectomy. [facility] Medical History PTSD (post-traumatic stress disorder) Interstitial cystitis Migraine Diabetes Endometriosis PCOS (polycystic ovarian syndrome) Asthma Anxiety and depression Home Medications ?Medication ?Instructions ?Recorded ?Last Taken ?Type bupropion HCl 150 mg tablet,12 hr 150 mg PO BID DEPRESSION 02/17/16 10/16/18 History sustained-release celecoxib 100 mg capsule 100 mg PO BID 02/17/16 06/02/24 History lorazepam 0.5 mg tablet 0.5 mg PO BID PRN Anxiety 02/17/16 Unknown History cholecalciferol (vitamin D3) 50 50,000 unit PO WE 11/12/17 10/16/18 History mcg (2,000 unit) capsule budesonide-formoterol HFA 160 2 puff inhalation BID PRN Asthma 11/17/18 Unknown History mcg-4.5 mcg/actuation aerosol inhaler fesoterodine 4 mg tablet,extended 4 mg PO DAILY 09/02/19 Unknown History release 24 hr (Toviaz) cetirizine 10 mg capsule 10 mg PO DAILY PRN allergy symptoms 10/23/19 Unknown History nystatin 100,000 unit/gram topical 1 applic topical BID PRN skin folds 10/23/19 Unknown History powder sertraline 100 mg tablet 100 mg PO DAILY 10/23/19 Unknown History hydroxychloroquine 200 mg tablet 200 mg PO BID 08/21/23 06/02/24 History albuterol sulfate 90 mcg/actuation 2 puff inhalation Q4H PRN 06/02/24 Unknown History aerosol inhaler shortness of breath or wheezing amoxicillin 875 mg-potassium 1 tab PO BID 06/02/24 06/02/24 History clavulanate 125 mg tablet cyclobenzaprine 10 mg tablet 10 mg PO TID PRN Muscle Spasm 06/02/24 Unknown History dulaglutide 4.5 mg/0.5 mL 4.5 mg subcut WE 06/02/24 Unknown History subcutaneous pen injector (Trulicity) ferrous sulfate 140 mg (45 mg 140 mg PO BID 06/02/24 Unknown History iron) tablet,extended release (Slow Release Iron) Allergy/AdvReac Type Severity Reaction Status Date / Time nickel Allergy Severe swelling Verified 06/02/24 15:13 cephalexin Allergy Itching Verified 06/02/24 15:13 duloxetine (From Cymbalta) AdvReac Other Verified 06/02/24 15:13 fluoxetine (From Prozac) AdvReac HALLUCINATI Verified 06/02/24 15:13 ONS gabapentin AdvReac headache Verified 06/02/24 15:13 Family History Unknown CVA (cerebral vascular accident) Myocardial infarction Uterine cancer Congestive heart disease Surgical History delivery delivered Encounter for Essure implantation History of endometrial ablation History of LAVH History of right oophorectomy Hx of cholecystectomy Social History Smoking Status: Current some day smoker tobacco type: cigarettes alcohol intake: never substance use type: does not use caffeine: Yes what type of physical activity do you participate in: walking seatbelt use: always do you feel safe at home: Yes 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: - 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 Physical Exam Const alert and no apparent distress Constitutional Narrative: Super morbidly obese. General Appearance: cooperative HEENT normocephalic, head/scalp atraumatic and moist oral mucous membranes Eyes PERRL, EOMs intact bilaterally and conjunctivae normal Neck supple General: trachea midline Chest inspection of chest normal Resp normal respiratory effort Auscultation: Negative for rales, rhonchi or wheezes Cardio S1 normal heart sound and S2 normal heart sound Rate: tachycardic GI normal to inspection, nondistended, normoactive bowel sounds Extremity no clubbing, cyanosis or edema Skin no rashes or lesions noted Neuro CN's II-XII intact bilaterally, moves all extremities and no focal motor deficits Psych cooperative and affect normal Lab / Micro Data 06/03/24 11:00 06/03/24 04:17 Labs: Laboratory Results - last 24 hr 06/02/24 15:30: WBC 14.6 H, RBC 5.03, Hgb 9.0 L, Hct 33.0 L, MCV 65.6 L, MCH 17.9 L, MCHC 27.3 L, RDW Std Deviation 41.1, RDW Coeff of Anya 17.9 H, Plt Count 367, MPV 9.0, Immature Gran % (Auto) 0.600, Neut % (Auto) 76.9 H, Lymph % (Auto) 15.3 L, [place] % (Auto) 5.1, Eos % (Auto) 1.5, Baso % (Auto) 0.6, Absolute Neuts (auto) 11.2 H, Absolute Lymphs (auto) 2.23, Nucleated RBC % 0, PT 14.3, INR 1.1, APTT 24.8, Sodium 137, Potassium 3.8, Chloride 106, Carbon Dioxide 26.0, Anion Gap 5, BUN 9, Creatinine 0.92, Estim Creat Clear Calc 115.41, Est GFR (MDRD) Af Amer 88, Est GFR (MDRD) Non-Af 73, BUN/Creatinine Ratio 9.8 L, Glucose 141 H, Calcium 9.2, Troponin I High Sens 514 H*, B-Natriuretic Peptide 71.1 06/02/24 17:10: Lactic Acid 1.4 06/02/24 18:40: Troponin I High Sens 529 H* 06/02/24 20:40: Troponin I High Sens 431 H* 06/02/24 22:00: APTT 137.5 H* 06/03/24 04:17: WBC 14.1 H, RBC 4.35, Hgb 7.9 L, Hct 29.0 L, MCV 66.7 L, MCH 18.2 L, MCHC 27.2 L, RDW Std Deviation 42.0, RDW Coeff of Anya 18.0 H, Plt Count 329, MPV 9.7, Immature Gran % (Auto) 0.600, Neut % (Auto) 64.4, Lymph % (Auto) 26.3, [place] % (Auto) 5.0, Eos % (Auto) 2.9, Baso % (Auto) 0.8, Absolute Neuts (auto) 9.1 H, Absolute Lymphs (auto) 3.72, Nucleated RBC % 0, Retic Count 2.35 H, Immature Retic Fraction 38.90 H, Retic Hgb Equivalent 18.5 L Charges/Coding Visit Charges Inpatient E&M: 22882 Init Hosp L3
[2024-06-03 08:34] LABS: Partial Thromboplast Time 56.3 Seconds (24.1-36.2)
[2024-06-03 08:44] LABS: AST(SGOT) 9 U/L (15-37); Alanine Aminotransfer ALT/SGPT 18 U/L (13-56); Albumin, Serum 2.7 g/dL (3.2-5.0); Alkaline Phosphatase 84 U/L (45-117); Anion Gap 8 (5-15); BUN 9 mg/dL (7-18); BUN/Creat Ratio 11.4 RATIO (10-20); Bilirubin, Direct 0.14 mg/dL (0.00-0.30); Calcium,Total 8.7 mg/dL (8.5-10.1); Chloride 108 mmol/L (98-107); Creatinine, Serum 0.79 mg/dL (0.55-1.02); EST Glomerular Filtration Rate 87 mL/min (>60); Est Glom Filt Rate - Afr Amer 106 mL/min (>60); Ferritin 9 ng/mL (8-252); Globulin 3.7 g/dL (2.2-4.2); Glucose 137 mg/dL (74-106); Iron 14 ug/dL (50-170); Iron Binding Capacity,Total 359 ug/dL (250-450); LDH 235 U/L (84-246); PERCENT IRON SATURATION 3.9 % (15.0-55.0); Potassium 3.8 mmol/L (3.5-5.1); Protein, Total 6.4 g/dL (6.4-8.2); Sodium Level 140 mmol/L (136-145)
[2024-06-03] MEDS: buPROPion (SR) 150 MG Tablet.SA PO ×2 (09:16→21:06)
[2024-06-03] MEDS: Sertraline 100 MG Tablet PO (09:16)
[2024-06-03] MEDS: HEPARIN/D5w 25,000 UNITS 25,000 UNITS/250 ML IV.SOLN. 15 UNITS CONT INF (09:17)
[2024-06-03 09:42] LABS: Troponin-I HS 361 pg/mL (3.0-54.0)
[2024-06-03 11:32] LABS: Partial Thromboplast Time 49.6 Seconds (24.1-36.2)
[2024-06-03] MEDS: 0.9% Saline Lock 10 ML Syringe IV ×2 (11:42→13:36)
[2024-06-03] MEDS: Heparin Injection (Vial) 5,000 UNIT/ML VIAL IV ×2 (11:42→18:23)
[2024-06-03 13:13] LABS: Vitamin B12 422 pg/mL (211-911)
[2024-06-03] MEDS: Pantoprazole Sodium 40 MG in 0.9% Normal Saline (100mL MB+) 100 ML 330 MG IV ×2 (13:28→21:06)
[2024-06-03] MEDS: Ondansetron 4 MG/2 ML Vial IV (13:28)
[2024-06-03] MEDS: 0.9% Normal Saline (500mL Bag) 500 ML 15 ML IV (13:36)
--- NOTE | 2024-06-03 14:29 | CASEMGMT ---
CHERI ENCISO Assessment Face to Face with patient for initial transition planning/care coordination assessment. CHERI ENCISO introduced self and role at [facility], pt voices understanding. Pt is A&Ox4 and is resting comfortably in bed and is calm. Care providers, pharmacy, and demographics verified. Admitting dx: BL PE LACE Strata: 3 PCP: Misbah Ford Specialists: Dr. Mcbride (Rheumatology CC) Preferred Pharmacy: [facility] Insurance: [employer] Prescription Benefit: Yes LNOK: Pt states that she does not want to add anyone to her file at this time. However, the pt has a daughter and a son. Pt also has a neighbors that can assist the pt as needed. Living Arrangements: Pt lives with her 16 y/o daughter in a 2 story townhouse that has 6 apartments with a flat entrance into her apartment ADLs/IADLs: States ind Transportation: Self. Pt states that she drove herself to [facility] and should be able to transport herself back home at time of DC. DME: Pt reports that she has a functioning CBGM with sufficient supplies. States that she has access to a BGM with supplies if needed. HHC/SNF: Denies Hx or needs. Reports history at for OP PT Plan: Anticipate DC home once medically ready. 6-Click score is 23. Will follow for new blood thinning Rx. Vascular is consulted and following for potential intervention. Pt states that she feels safe returning home once she is medically ready and denies further concerns at this time. Pt denies the need for HH or OP Tx at this time. CM to continue to follow. Dee Stanley RN, CM
--- NOTE | 2024-06-03 17:58 | PN.SURG_ITS ---
Subjective Subjective Patient was seen resting comfortably in bed. She has continued to saturate well at >95% on RA throughout the day. She reports that her SOB and her chest pain are much improved today. She has been ambulating to the bathroom with minimal SOB as well. She was noted to be anemic with hgb of 9.0 on presentation yesterday, down to 7.9 this AM but stable at 8.0 this PM. No apparent signs of bleeding, she denies any black/tarry stools, she is s/p hysterectomy/R oophorectomy. GI is consulted. Objective Data Objective Data Vital Signs: Vital Signs Temp Pulse Resp BP Pulse Ox O2 Del Method 98.2 F 102 H 18 133/76 H 98 Room Air 06/03/24 16:06 06/03/24 16:06 06/03/24 16:06 06/03/24 16:06 06/03/24 16:06 06/03/24 16:06 Oxygen Delivery Method Room Air Weight: 305 lb 1.916 oz Body Mass Index (BMI) 54.0 Intake & Output: Intake and Output for Last 24 Hours 06/01/24 06/02/24 06/03/24 23:59 23:59 23:59 Intake Total 113.1 / 113.1 317.00 / 317.00 Balance 113.1 / 113.1 317.00 / 317.00 Lab / Micro Data 06/03/24 11:00 06/03/24 04:17 Labs: Laboratory Results - last 24 hr 06/02/24 17:10: Lactic Acid 1.4 06/02/24 18:40: Troponin I High Sens 529 H* 06/02/24 20:40: Troponin I High Sens 431 H* 06/02/24 22:00: APTT 137.5 H* 06/03/24 00:40: Troponin I High Sens 361 H* 06/03/24 04:17: WBC 14.1 H, RBC 4.35, Hgb 7.9 L, Hct 29.0 L, MCV 66.7 L, MCH 18.2 L, MCHC 27.2 L, RDW Std Deviation 42.0, RDW Coeff of Anya 18.0 H, Plt Count 329, MPV 9.7, Immature Gran % (Auto) 0.600, Neut % (Auto) 64.4, Lymph % (Auto) 26.3, [place] % (Auto) 5.0, Eos % (Auto) 2.9, Baso % (Auto) 0.8, Absolute Neuts (auto) 9.1 H, Absolute Lymphs (auto) 3.72, Nucleated RBC % 0, Retic Count 2.35 H , Immature Retic Fraction 38.90 H, Retic Hgb Equivalent 18.5 L, APTT 56.3 H, Sodium 140, Potassium 3.8, Chloride 108 H, Carbon Dioxide 24.0, Anion Gap 8, BUN 9, Creatinine 0.79, Estim Creat Clear Calc 133.60, Est GFR (MDRD) Af Amer 106, Est GFR (MDRD) Non-Af 87, BUN/Creatinine Ratio 11.4, Glucose 137 H, Calcium 8.7, Iron 14 L, TIBC 359, Iron Saturation 3.9 L, Ferritin 9, Total Bilirubin 0.40, Direct Bilirubin 0.14, AST 9 L, ALT 18, Alkaline Phosphatase 84, Lactate Dehydrogenase 235, Total Protein 6.4, Albumin 2.7 L, Globulin 3.7 06/03/24 05:20: Vitamin B12 422 06/03/24 11:00: Hgb 8.0 L, Hct 29.0 L, APTT 49.6 H Radiography Diagnostic Testing: Radiology Impression Echocardiogram 06/02/24 18:05 Interpretation Summary The estimated ejection fraction is 60 %. No evidence for diastolic dysfunction. Severely dilated right ventricle. Moderately decreased right ventricular systolic function Ordering Physician: Qing Love Performed By: Irma Rosenthal RVT, RDCS and Student Venous Doppler Study 06/02/24 18:05 Interpretation Summary Acute deep vein thrombosis is noted in the right popliteal vein, tibioperoneal trunk vein, peroneal vein. Deep veins of the left lower extremity are patent and compressible segmentally. There is no evidence of left lower extremity deep vein thrombosis. The bilateral great saphenous veins appear patent and compressible segmentally. Ordering Physician: Qing Love Referring Physician: Misbah Ford Performed By: Mark Baeza RVT Physical Exam Const alert, oriented x3 and no limitations General Appearance: cooperative HEENT normocephalic, hearing grossly normal bilaterally, external ears normal and external nose normal Head and Scalp: normal to inspection External Ear: external ears normal Eyes PERRL and EOMs intact bilaterally General Eye: normal appearance of both eyes Neck General: normal visual inspection and trachea midline Resp normal respiratory effort, no retractions and no use of accessory muscles Effort and Inspection: able to speak in complete sentences; Negative for labored, grunting or audible wheezes Cardio Rate: tachycardic Rhythm: regular rhythm Extremity Extremity Narrative: BLE 1+, no pain to palpation of bilateral calves, no significant erythema/warmth appreciated Skin no rashes or lesions noted Neuro oriented x3, CN's II-XII intact bilaterally, moves all extremities and no focal motor deficits Speech: speech normal Psych mental status grossly normal Appearance: grossly normal Attitude: calm and engaged Activity / Motor Behavior: appropriate eye contact Speech: normal speech Mood & Affect: euthymic mood Judgement: judgement good Assessment & Plan Assessment/Plan (1) Bilateral pulmonary embolism: PLAN: Her symptoms have continued to improve and she has remained hemodynamically stable and not requiring supplemental O2. Her troponins were elevated but downtrending, BNP and lactic were normal. Echo confirmed right heart strain. BLE duplex revealed acute R popliteal, TP trunk, and peroneal DVT. No plans for thrombectomy at this time given her symptomatic improvement, stable O2 saturations without supplementation, and hemodynamic stability. Continue with anticoagulation with heparin drip with ultimate plan for transition to DOAC as long as Hgb remains stable. She is anemic, but Hgb has been stable on therapeutic heparin drip today, at this time no indication for IVC filter placement. Would continue anticoagulation with heparin drip and ultimately transition to DOAC as long as Hgb remains stable. Will continue to monitor and follow-up on GI evaluation. Charges/Coding Visit Charges Inpatient E&M: 09646 Subs Hosp L1
[2024-06-03 18:01] LABS: Partial Thromboplast Time 54.7 Seconds (24.1-36.2)
--- NOTE | 2024-06-03 18:43 | EX.PCM.CON.G ---
HPI Consult Data Date of Consult: 06/03/24 HPI Narrative Reason for Consultation: Anemia HPI Narrative: UCHE BRAVO, is a 39 F with a history of anxiety and depression, asthma, obesity who presented [facility] ED 06/02/2024 from her outpatient physician office after a CTA found blood clots and right heart strain. 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 Patient placed on heparin drip. Patient evaluated bedside and reports that she started feeling unwell May 21 and was given prednisone and it was thought she had a viral illness, she was not feeling better and went back and was told that she had something viral and no further treatment indicated and went home. After that time she continued to worsen so she went back and was placed on Augmentin which she is still on however has continued to deteriorate. She has been lightheaded and dizzy and so short of breath that she can barely move. Does endorse some right calf pain over the past few days with achiness when she is walking though feels slightly better today but she does not note any swelling in her lower extremities or erythema. Her lightheaded and dizziness has been worse over the the past several days as has the shortness of breath. I was called to see her because she was discovered to have severe iron deficiency anemia with microcytic indices. She has no family history of anemia. She has been on iron for a long time. She does not have long menstrual periods. [facility] Medical History PTSD (post-traumatic stress disorder) Interstitial cystitis Migraine Diabetes Endometriosis PCOS (polycystic ovarian syndrome) Asthma Anxiety and depression Home Medications ?Medication ?Instructions ?Recorded ?Last Taken ?Type bupropion HCl 150 mg tablet,12 hr 150 mg PO BID DEPRESSION 02/17/16 10/16/18 History sustained-release celecoxib 100 mg capsule 100 mg PO BID 02/17/16 06/02/24 History lorazepam 0.5 mg tablet 0.5 mg PO BID PRN Anxiety 02/17/16 Unknown History cholecalciferol (vitamin D3) 50 50,000 unit PO WE 11/12/17 10/16/18 History mcg (2,000 unit) capsule budesonide-formoterol HFA 160 2 puff inhalation BID PRN Asthma 11/17/18 Unknown History mcg-4.5 mcg/actuation aerosol inhaler fesoterodine 4 mg tablet,extended 4 mg PO DAILY 09/02/19 Unknown History release 24 hr (Toviaz) cetirizine 10 mg capsule 10 mg PO DAILY PRN allergy symptoms 10/23/19 Unknown History nystatin 100,000 unit/gram topical 1 applic topical BID PRN skin folds 10/23/19 Unknown History powder sertraline 100 mg tablet 100 mg PO DAILY 10/23/19 Unknown History hydroxychloroquine 200 mg tablet 200 mg PO BID 08/21/23 06/02/24 History albuterol sulfate 90 mcg/actuation 2 puff inhalation Q4H PRN 06/02/24 Unknown History aerosol inhaler shortness of breath or wheezing amoxicillin 875 mg-potassium 1 tab PO BID 06/02/24 06/02/24 History clavulanate 125 mg tablet cyclobenzaprine 10 mg tablet 10 mg PO TID PRN Muscle Spasm 06/02/24 Unknown History dulaglutide 4.5 mg/0.5 mL 4.5 mg subcut WE 06/02/24 Unknown History subcutaneous pen injector (Trulicity) ferrous sulfate 140 mg (45 mg 140 mg PO BID 06/02/24 Unknown History iron) tablet,extended release (Slow Release Iron) Allergy/AdvReac Type Severity Reaction Status Date / Time nickel Allergy Severe swelling Verified 06/02/24 15:13 cephalexin Allergy Itching Verified 06/02/24 15:13 duloxetine (From Cymbalta) AdvReac Other Verified 06/02/24 15:13 fluoxetine (From Prozac) AdvReac HALLUCINATI Verified 06/02/24 15:13 ONS gabapentin AdvReac headache Verified 06/02/24 15:13 Family History Unknown CVA (cerebral vascular accident) Myocardial infarction Uterine cancer Congestive heart disease Surgical History delivery delivered Encounter for Essure implantation History of endometrial ablation History of LAVH History of right oophorectomy Hx of cholecystectomy Social History Smoking Status: Current some day smoker tobacco type: cigarettes alcohol intake: never substance use type: does not use caffeine: Yes what type of physical activity do you participate in: walking seatbelt use: always do you feel safe at home: Yes 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: - 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 Physical Exam Const alert, oriented x3 and no limitations General Appearance: cooperative HEENT normocephalic, hearing grossly normal bilaterally, external ears normal and external nose normal Head and Scalp: normal to inspection External Ear: external ears normal Eyes PERRL and EOMs intact bilaterally General Eye: normal appearance of both eyes Neck General: normal visual inspection and trachea midline Resp normal respiratory effort, no retractions and no use of accessory muscles Effort and Inspection: able to speak in complete sentences; Negative for labored, grunting or audible wheezes Cardio Rate: tachycardic Rhythm: regular rhythm Extremity Extremity Narrative: BLE 1+, no pain to palpation of bilateral calves, no significant erythema/warmth appreciated Skin no rashes or lesions noted Neuro oriented x3, CN's II-XII intact bilaterally, moves all extremities and no focal motor deficits Speech: speech normal Psych mental status grossly normal Appearance: grossly normal Attitude: calm and engaged Activity / Motor Behavior: appropriate eye contact Speech: normal speech Mood & Affect: euthymic mood Judgement: judgement good Lab / Micro Data 06/03/24 11:00 06/03/24 04:17 Labs: Laboratory Results - last 24 hr 06/02/24 18:40: Troponin I High Sens 529 H* 06/02/24 20:40: Troponin I High Sens 431 H* 06/02/24 22:00: APTT 137.5 H* 06/03/24 00:40: Troponin I High Sens 361 H* 06/03/24 04:17: WBC 14.1 H, RBC 4.35, Hgb 7.9 L, Hct 29.0 L, MCV 66.7 L, MCH 18.2 L, MCHC 27.2 L, RDW Std Deviation 42.0, RDW Coeff of Anya 18.0 H, Plt Count 329, MPV 9.7, Immature Gran % (Auto) 0.600, Neut % (Auto) 64.4, Lymph % (Auto) 26.3, [place] % (Auto) 5.0, Eos % (Auto) 2.9, Baso % (Auto) 0.8, Absolute Neuts (auto) 9.1 H, Absolute Lymphs (auto) 3.72, Nucleated RBC % 0, Retic Count 2.35 H, Immature Retic Fraction 38.90 H, Retic Hgb Equivalent 18.5 L, APTT 56.3 H, Sodium 140, Potassium 3.8, Chloride 108 H, Carbon Dioxide 24.0, Anion Gap 8, BUN 9, Creatinine 0.79, Estim Creat Clear Calc 133.60, Est GFR (MDRD) Af Amer 106, Est GFR (MDRD) Non-Af 87, BUN/Creatinine Ratio 11.4, Glucose 137 H, Calcium 8.7, Iron 14 L, TIBC 359, Iron Saturation 3.9 L, Ferritin 9, Total Bilirubin 0.40, Direct Bilirubin 0.14, AST 9 L, ALT 18, Alkaline Phosphatase 84, Lactate Dehydrogenase 235, Total Protein 6.4, Albumin 2.7 L, Globulin 3.7 06/03/24 05:20: Vitamin B12 422 06/03/24 11:00: Hgb 8.0 L, Hct 29.0 L, APTT 49.6 H 06/03/24 17:25: APTT 54.7 H Imaging Radiology Impression Echocardiogram 06/02/24 18:05 Interpretation Summary The estimated ejection fraction is 60 %. No evidence for diastolic dysfunction. Severely dilated right ventricle. Moderately decreased right ventricular systolic function Ordering Physician: Qing Love Performed By: Irma Rosenthal RVT, RDCS and Student Venous Doppler Study 06/02/24 18:05 Interpretation Summary Acute deep vein thrombosis is noted in the right popliteal vein, tibioperoneal trunk vein, peroneal vein. Deep veins of the left lower extremity are patent and compressible segmentally. There is no evidence of left lower extremity deep vein thrombosis. The bilateral great saphenous veins appear patent and compressible segmentally. Ordering Physician: Qing Love Referring Physician: Misbah Ford Performed By: Mark Bazea RVT Assessment & Plan Assessment/Plan (1) Bilateral pulmonary embolism: PLAN: Plan 39-year-old comes in with shortness of breath discovered to have Bilateral pulmonary embolism. Patient started on heparin drip. She will need to undergo an upper lower endoscopy to evaluate her lower GI tract. She did not have a colonoscopy in the past. She was explained alternatives, risk and benefits going on with any bleeding, infection, sepsis, perforation, need for emergent . She will an ASA of 3. Patient with hemoglobin of 9 however no recent baseline with last values within normal limits back in 2019. Patient significantly microcytic with an MCV of 65.6. Agree with ordering iron studies, reticulocyte count, LDH, haptoglobin. Hold heparin drip 5 AM. Charges/Coding Visit Charges Inpatient E&M: 70630 Init Hosp L3
[2024-06-03] MEDS: Electrolyte Solution/Peg's 4000 ML PO (21:44)
[2024-06-04] VITALS (14 sets, daily range): BP systolic 90–132; BP diastolic 62–86; PULSE 82–118; RESP 12–20; TEMP 36.2–37.2; O2SAT 94–100
--- NOTE | 2024-06-04 | IMM_PTH ---
PATIENT: UCHE BRAVO LOC: [facility] U#:[id number] AGE/SX: 39/F ROOM: [facility] RE06/02/[address]: Dr. Joe Bragg DO : 1985 BED: 1 DIS: 06/08/2024 SPEC #: [id number] RECD: 06/08/24 12:46 STATUS: SOUT REQ #: [id number] KATARZYNA: 06/04/24 00:[address]: Florentin Traylor DEPT: IMMUNOHISTOCHEMISTRY RECD BY: Louis Nazario ENTERED: 06/08/24 12:46 SP TYPE: IMMUNO OTHR DR: DO Dr. Jose Luu MD Dr. Eric Jopperi, DO Dr. Eric Turney, MD Dr. Jordan Garrison, DO Dr. Qing Love MD Tissues: Esophagus, NOS Procedures: P53 (initial) KI-67 (add) PHYSICIAN & INSTITUTION [place] [id number] SPECIMEN INFORMATION: Tissue Source: Distal esophagus biopsy Clinical Info: [place] Specimen Number: [id number] CPT code: [id number] METHODOLOGY: Deparaffinized sections of prefer/formalin-fixed tissue or PAP/DQ stained slides are incubated with monoclonal/polyclonal antibodies/oligonucleotide probes. Localization is made via biotin free immunoperoxidase method. Appropriate controls are performed and reacted as expected. Results on target cell population are indicated in the following table: RESULTS: ANTIBODY / CLONE RESULT P53 (DO-7) positive, wild type Ki-67 (30-9) positive, low These tests were developed and their performance characteristics determined by [facility]. They may not have been cleared or approved by the U.S. Food and Drug Administration. The FDA has determined that such clearance or approval is not necessary. The above immunohistochemical/dualISH markers are ordered and reviewed by the Pathologist. INTERPRETATION: Distal esophagus, biopsy: No evidence of dysplasia. AM 06/09/2024
[2024-06-04] MEDS: HEPARIN/D5w 25,000 UNITS 25,000 UNITS/250 ML IV.SOLN. 17 UNITS CONT INF ×2 (00:40→15:24)
[2024-06-04 01:10] LABS: Partial Thromboplast Time 71.2 Seconds (24.1-36.2)
[2024-06-04 03:20] LABS: Internal QC Validated? YES +Cl - CLEAR BKGD; Pregnancy, Urine Negative Negative
[2024-06-04 05:07] LABS: Haptoglobin 264 mg/dL (33-278)
[2024-06-04 06:05] LABS: Absolute Lymphocyte Count 2.98 X10^3/uL (0.83-4.51); Absolute Neutrophil Count 9.5 X10^3/uL (2.0-7.7); Basophil% 0.7 % (0-1); Eosinophil# 0.24 X10^3/uL; Eosinophils% 1.7 % (0-5); Hemoglobin 7.6 g/dL (12.0-15.0); Lymphocyte # 2.98 X10^3/ul (0.83-4.51); Lymphocyte % 21.7 % (19-41); Mean Corp Hgb Conc 28.1 g/dL (32-36); Mean Corpuscular Hgb 18.4 pg (27.0-32.0); Mean Corpuscular Volume 65.5 fL (81-99); Mean Platelet Vol. 9.9 fl (6.2-12.0); Monocyte# 0.83 X10^3/uL; NRBC Flagged by Analyzer 0 % (0-5); Neutrophil # 9.52 X10^3/uL (2.7-7.7); Neutrophil % 69.4 % (47-70); Platelet Count 323 K/mm3 (150-450); RBC Distribution Width CV 17.8 % (11.6-14.6); RBC Distribution Width SD 41.3 fl (35.1-43.9); Red Blood Count 4.12 M/mm3 (4.2-5.4); White Blood Count 13.7 K/mm3 (4.4-11.0)
[2024-06-04 06:45] LABS: Anion Gap 7 (5-15); BUN 8 mg/dL (7-18); BUN/Creat Ratio 8.7 RATIO (10-20); Calcium,Total 8.7 mg/dL (8.5-10.1); Chloride 105 mmol/L (98-107); Creatinine, Serum 0.92 mg/dL (0.55-1.02); EST Glomerular Filtration Rate 73 mL/min (>60); Est Glom Filt Rate - Afr Amer 89 mL/min (>60); Estimated Creatinine Clearance 114.72 ml/min; Glucose 150 mg/dL (74-106); Potassium 3.6 mmol/L (3.5-5.1); Sodium Level 138 mmol/L (136-145)
[2024-06-04] MEDS: Budesonide Respules 0.5 MG/2 ML AMPUL.NEB. INHALATION ×2 (06:55→20:24)
[2024-06-04] MEDS: Albuterol 2.5 MG/3 ML VIAL.NEB. INHALATION ×2 (06:55→20:24)
--- NOTE | 2024-06-04 08:18 | PCM.PN.HOSP ---
Reason for Visit Reason for Visit: Diagnoses Other pulmonary embolism without acute cor pulmonale (06/02/24) Subjective Subjective Patient seen scheduled to undergo both upper and lower endoscopic evaluation. Iron studies obtained came back consistent with severe iron deficiency anemia Objective Data Objective Data Vital Signs: Vital Signs Temp Pulse Resp BP Pulse Ox O2 Del Method O2 Flow Rate 97.1 F L 95 18 130/83 H 98 Nasal Cannula 2 06/04/24 04:00 06/04/24 04:00 06/04/24 04:00 06/04/24 04:00 06/04/24 04:00 06/04/24 04:00 06/04/24 04:00 Oxygen Flow Rate (L/min) 2 Oxygen Delivery Method Nasal Cannula Weight: 138.4 kg Body Mass Index (BMI) 54.0 Intake & Output: Intake and Output for Last 24 Hours 06/02/24 06/03/24 06/04/24 23:59 23:59 23:59 Intake Total 113.1 / 113.1 533.93 / 533.93 356.53 / 356.53 Balance 113.1 / 113.1 533.93 / 533.93 356.53 / 356.53 Lab / Micro Data 06/04/24 05:20 06/04/24 05:20 Labs: Laboratory Results - last 24 hr 06/03/24 00:40: Troponin I High Sens 361 H* 06/03/24 04:17: APTT 56.3 H, Sodium 140, Potassium 3.8, Chloride 108 H, Carbon Dioxide 24.0, Anion Gap 8, BUN 9, Creatinine 0.79, Estim Creat Clear Calc 133.60, Est GFR (MDRD) Af Amer 106, Est GFR (MDRD) Non-Af 87, BUN/Creatinine Ratio 11.4, Glucose 137 H, Calcium 8.7, Iron 14 L, TIBC 359, Iron Saturation 3.9 L, Ferritin 9, Total Bilirubin 0.40, Direct Bilirubin 0.14, AST 9 L, ALT 18, Alkaline Phosphatase 84, Lactate Dehydrogenase 235, Total Protein 6.4, Albumin 2.7 L, Globulin 3.7 06/03/24 05:20: Haptoglobin 264, Vitamin B12 422 06/03/24 11:00: Hgb 8.0 L, Hct 29.0 L, APTT 49.6 H 06/03/24 17:25: APTT 54.7 H 06/04/24 00:29: APTT 71.2 H 06/04/24 03:05: Urine Test Negative 06/04/24 05:20: WBC 13.7 H, RBC 4.12 L, Hgb 7.6 L, Hct 27.0 L, MCV 65.5 L, MCH 18.4 L, MCHC 28.1 L, RDW Std Deviation 41.3, RDW Coeff of Anya 17.8 H, Plt Count 323, MPV 9.9, Immature Gran % (Auto) 0.500, Neut % (Auto) 69.4, Lymph % (Auto) 21.7, [place] % (Auto) 6.0, Eos % (Auto) 1.7, Baso % (Auto) 0.7, Absolute Neuts (auto) 9.5 H, Absolute Lymphs (auto) 2.98, Nucleated RBC % 0, Sodium 138, Potassium 3.6, Chloride 105, Carbon Dioxide 26.0, Anion Gap 7, BUN 8, Creatinine 0.92, Estim Creat Clear Calc 114.72, Est GFR (MDRD) Af Amer 89, Est GFR (MDRD) Non-Af 73, BUN/Creatinine Ratio 8.7 L, Glucose 150 H, Calcium 8.7, Phosphorus 4.0, Magnesium 2.0, Blood Type B POSITIVE, Antibody Screen NEGATIVE Radiography Diagnostic Testing: Radiology Impression Echocardiogram 06/02/24 18:05 Interpretation Summary The estimated ejection fraction is 60 %. No evidence for diastolic dysfunction. Severely dilated right ventricle. Moderately decreased right ventricular systolic function Ordering Physician: Qing Love Performed By: Irma Rosenthal RVT, RDCS and Student Venous Doppler Study 06/02/24 18:05 Interpretation Summary Acute deep vein thrombosis is noted in the right popliteal vein, tibioperoneal trunk vein, peroneal vein. Deep veins of the left lower extremity are patent and compressible segmentally. There is no evidence of left lower extremity deep vein thrombosis. The bilateral great saphenous veins appear patent and compressible segmentally. Ordering Physician: Qing Love Referring Physician: Misbah Ford Performed By: Mark Baeza RVT Physical Exam Narrative GENERAL: cooperative HEENT: Atraumatic; normocephalic EYES; Anicteric, Normal Conjunctiva NECK; supple, normal thyroid, RESPIRATORY: Diminished to auscultation CARDIOVASCULAR: Regular S1 S2, GI: soft, normoactive bowel sounds, : No Renal angle tenderness; EXTREMITIES: No edema, no clubbing, MUSCULOSKELETAL: no muscle wasting NEURO: Awake; no lateralizing signs. SKIN: No Rash PSYCH; Flat affect Assessment & Plan Assessment/Plan (1) Bilateral pulmonary embolism: PLAN: Plan Patient is a 39-year-old lady who presented with shortness of breath CT obtained demonstrated bilateral pulmonary embolism with right heart strain 1. Acute bilateral pulmonary embolism Bilat PE with acute cor pulmonale ? With right heart strain noted on CT. Patient was found to have elevated troponin as well as BNP. Started on heparin admitted to the intensive care unit consult placed to vascular surgery. Plan is to continue with conservative management with no plans for thrombectomy at this point 2. Anemia ? Complicating care hemoglobin on admission was 9.0 hemoglobin as of 06/03/2024 was 7.9 patient also had microcytosis and elevated RDW consistent with iron deficiency anemia. As part of patient's management iron panel and haptoglobin ordered on admission. Consult was also placed to gastroenterology for possible endoscopic evaluation before committing patient to long-term systemic anticoagulation. Of note patient reports having had hysterectomy in the past ? 06/04/2024; patient iron studies came back consistent with severe iron deficiency anemia. Case was discussed with GI the day prior. Plan is for patient to undergo both upper and lower endoscopic evaluation 3. Morbid obesity with BMI of 54.0 ? Complicating care weight loss advised 4. Depression with anxiety ? Patient is on Zoloft and Ativan continue 5. Mild intermittent asthma ? Currently not in exacerbation aerosol treatment as needed Time spent in the patient's overall evaluation,decision-making process, review of diagnostic data, adjustment of management, discussion with other providers, nursing nursing and ancillary staff involved in patient's care documentation, 40 Minutes Charges/Coding Visit Charges Inpatient E&M: 73553 Subs Hosp L2
[2024-06-04] MEDS: Pantoprazole Sodium 40 MG in 0.9% Normal Saline (100mL MB+) 100 ML 330 MG IV ×2 (09:10→22:19)
--- NOTE | 2024-06-04 13:00 | EGD_PTH ---
PATIENT: UCHE BRAVO LOC: [facility] U#:[id number] AGE/SX: 39/F ROOM: [facility] RE06/02/[address]: Dr. Joe Bragg DO : 1985 BED: 1 DIS: 06/08/2024 SPEC #: [id number] RECD: 06/04/24 17:56 STATUS: VIVIEN REQ #: [id number] KATARZYNA: 06/04/24 13:[address]: Florentin Traylor DEPT: SURGICAL PATHOLOGY RECD BY: Tila Mcnally ENTERED: 06/05/24 07:56 SP TYPE: EGD BIOPSY OTHR DR: MD Dr. Phuc Bautista MD Dr. Bruce Arthur, MD Dr. Derek Brown, DO Dr. David Kittoe, MD Dr. David P Myers, MD Dr. Edward Matheis, MD Dr. Eric Turney, MD Dr. Gautam Baskaran, MD Dr. Yordanos Habtegebriel, MD Dr. Hemant Dand, MD Dr. Jordan Garrison, DO Dr. Jose Ochoa, MD Dr. Kimber Foust, MD Dr. Lamia Aljundi, MD Dr. Pritam Ghosh, MD Dr. Pavan Irukulla, MD Dr. Paige Pierce, MD Dr. Saad Farooqi, MD Dr. Sukhdeep Dhesi, DO Dr. Sujoy Gill, MD Dr. Timothy Fernstrom, MD Dr. Clarence Omer Dr., MD Tissues: Esophagus, NOS Procedures: Special Stain Group I Surgery Specimen Level IV Alcian Blue/PAS (control) Comments: @ Ordering doctor for SUIV edited from to @ chanelle AN at 06/05/24920 @ Submitting doctor edited from to @ chanelle AN at 06/05/24920 HEADER OPERATION: EGD, colonoscopy PRE-OP DIAGNOSIS: Anemia TISSUE SUBMITTED: Distal esophagus biopsy MICROSCOPIC DIAGNOSIS Distal esophagus, biopsy: Gastroesophageal junction mucosa with mild chronic inflammation. 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 No evidence of dysplasia. See commentDavis Lowry 06/08/2024 COMMENT Alcian blue/PAS stain with matched control supports the above diagnosis. Immunohistochemistry ([id number]) for P53 and Ki-67 will be performed and results will be reported separately. MICROSCOPIC DESCRIPTION Slides are reviewed. GROSS DESCRIPTION Received in fixative is one container labeled with the patient's name and designated Distal esophagus biopsy. The specimen consists of one irregular fragment of light denny soft tissue that measures 0.6 x 0.6 x 0.1 cm. The specimen is totally submitted in one cassette. 06/05/2024 TC:3 CPT:[id number]
--- NOTE | 2024-06-04 13:12 | PCM.PRE.AN2 ---
ASA Classification* ASA Classification ASA Classification: 3 Assessment & Plan Anesthesia* Anesthesia Assessment Anesthesia Assessment: Discussed sedation and/or anesthesia options, risks, benefits, and alternatives with patient/parents/legal guardian/POA. Questions invited. The patient/parents/legal guardian/POA seems to understand and agrees to proceed with anesthesia plan. Reviewed the physical assessment, medical history, allergy history and patient home medications list prior to surgery/procedure/anesthetic and documented any changes. Performed airway and anesthesia risk assessments. Anesthesia Type Anesthesia Type: MAC History Source History Obtained from:: Patient and Chart Anesthesia Focused Assessment* Temperature: 98.2 F Pulse Rate: 118 Blood Pressure: 132/86 Respiratory Rate: 18 Pulse Ox: 98 Airway Assessment Mouth opens: >3 cm Mallampati Score: III Teeth Condition: Intact Neck Range of motion (ROM): Full ROM Focused Labs Anesthesia Preop lab: CBC WBC 13.7 K/mm3 (4.4-11.0) H 06/04/24 05:20 RBC 4.12 M/mm3 (4.2-5.4) L 06/04/24 05:20 Hgb 7.6 g/dL (12.0-15.0) L 06/04/24 05:20 Hct 27.0 % (37-47) L 06/04/24 05:20 Plt Count 323 K/mm3 (150-450) 06/04/24 05:20 CHEMISTRY Potassium 3.6 mmol/L (3.5-5.1) 06/04/24 05:20 Sodium 138 mmol/L (136-145) 06/04/24 05:20 Magnesium 2.0 mg/dL (1.6-2.6) 06/04/24 05:20 Phosphorus 4.0 mg/dL (2.5-4.9) 06/04/24 05:20 BUN 8 mg/dL (7-18) 06/04/24 05:20 Creatinine 0.92 mg/dL (0.55-1.02) 06/04/24 05:20 Glucose 150 mg/dL (74-106) H 06/04/24 05:20 POC Glucose 148 mg/dL (70-110) H 10/28/19 06:43 TSH 1.58 uIU/mL (0.358-3.74) 04/06/19 14:04 COAG PT 14.3 SECONDS (11.7-14.9) 06/02/24 15:30 Urine Test Negative Negative 06/04/24 03:05 Pre-Assessment Diagnosis/Proposed Procedure Planned Operative Procedure(s): Esophagogastroduodenoscopy and colonoscopy Anesthesia History 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 When Was Last Pacemaker Check QUESTION #4 FULL TEXT: You/Your Family Experience fever (hyperthermia) with Anesthesia Last Oral Intake Last Oral intake: Last Oral Intake NPO since 00:00 06/03/24 22:28 Meds taken in AM with sips of No 06/03/24 22:28 water? Meds patient instructed to take am of surgery PONV PONV - web content writer: PONV - web content writer Female HX of Motion Sickness HX of N/V After Surgery Non-Smoker Duration of Surgery greater than 60 minutes Number of Risk Factors PONV Score Height & Weight Height & Weight: Anesthesia: Height & Weight Height 5 ft 3 in 06/03/24 22:28 Weight: 138.4 kg 06/03/24 22:28 Body Mass Index (BMI) 54.0 06/03/24 22:28 Respiratory Assessment Respiratory Assessment - web content writer: Respiratory Tract Infection Hx - web content writer Hx Respiratory Tract Infection No 06/03/24 22:28 STOP Sleep Apnea STOP Sleep Apnea - web content writer: STOP Sleep Apnea - web content writer Hx Hypertension No 06/02/24 18:01 Hx Sleep Apnea No 06/02/24 18:01 CPAP No 10/27/19 10:13 BIPAP Do you snore loudly (louder No 06/02/24 18:01 than talking or can be heard Do you often feel tired/ No 06/02/24 18:01 fatigued/ sleepy during daytime? Has anyone observed you stop No 06/02/24 18:01 breathing during sleep? STOP Results Negative 06/02/24 18:01 QUESTION #5 FULL TEXT : Do you snore loudly (louder than talking or can be heard through closed doors)? 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 Specify any problems Hx of Preganancy in last 3 No 06/02/24 18:01 Months Nurse Filling Out Transfusion LMORROW 06/02/24 18:01 & Questions: Date: 06/02/24 06/02/24 18:01 Time: 18:03 06/02/24 18:01 Patient unable to answer at this time (ie. confused, unrespo /Reproduction History /Reproductive History - web content writer: /Reproductive Hx- web content writer Hx Now No 06/03/24 22:28 Gestational Age (in weeks): EDC: Hx Hx Para Hx Section SAB No 06/03/24 22:28 Active Medications Active Medications: Current Medications Generic Name Dose Route Start Last Admin Trade Name Freq PRN Reason Stop Dose Admin Acetaminophen 650 mg 06/02/24 18:05 Acetaminophen 325 Mg Tablet PO Q6H PRN PRN Pain 1-10 Or Fever >100.7 Albuterol Sulfate 2.5 mg 06/02/24 18:05 Albuterol 2.5 Mg/3 Ml Vial.Neb. INHALATION Q2H PRN PRN SOB &/OR WHEEZING Albuterol Sulfate 2.5 mg 06/02/24 20:05 06/04/24 06:55 Albuterol 2.5 Mg/3 Ml Vial.Neb. INHALATION 2.5 mg Q6HWA.RT ALBERT Administration Budesonide 0.5 mg 06/02/24 20:05 06/04/24 06:55 Budesonide Respules 0.5 Mg/2 Ml Ampul.Neb. INHALATION 0.5 mg Q12H.RT ALBERT Administration Bupropion HCl 150 mg 06/02/24 22:00 06/04/24 09:15 Bupropion (Sr) 150 Mg Tablet.Sa PO Not Given BID ALBERT Heparin Sodium (Porcine) 0 unit 06/02/24 15:35 06/03/24 18:23 Heparin Injection (Vial) 5,000 Unit/Ml Vial IV 1,000 unit UD PRN Administration dose adjustment Protocol Heparin Sodium/Dextrose 25,000 units in 250 mls @ 18 mls/hr 06/02/24 15:25 06/04/24 05:30 CONT INF Infused .[id number] ALBERT Titration Protocol Sodium Chloride 500 mls @ 15 mls/hr 06/02/24 17:51 06/03/24 16:13 IV 0 mls/hr .[id number] PRN Infusion Saline Flush Sodium Chloride 500 mls @ 15 mls/hr 06/02/24 17:51 IV .[id number] PRN Additional IVPB Infusion Pantoprazole Sodium 40 mg/ 110 mls @ 330 mls/hr 06/03/24 12:30 06/04/24 10:04 Sodium Chloride IV Infused Q12 ALBERT Infusion Ferric Sodium Gluconate 270 mls @ 135 mls/hr 06/04/24 12:15 Complex 250 mg/ Sodium IV 06/04/24 14:14 Chloride X1 ONE Lorazepam 0.5 mg 06/02/24 19:37 Lorazepam 0.5 Mg Tablet PO BID PRN Anxiety Melatonin 3 mg 06/02/24 18:05 Melatonin 3 Mg Tablet PO QHS PRN PRN INSOMNIA Ondansetron HCl 4 mg 06/02/24 18:05 06/03/24 13:28 Ondansetron 4 Mg/2 Ml Vial IV 4 mg Q8H PRN PRN Administration NAUSEA/VOMITING Senna/Docusate Sodium 2 tablet 06/02/24 18:05 Senna/Docusate Sodium 1 Tablet PO BID PRN PRN Constipation Sertraline HCl 100 mg 06/03/24 10:00 06/04/24 09:15 Sertraline 100 Mg Tablet PO Not Given DAILY ALBERT Sodium Chloride 10 - 40 ml 06/02/24 17:51 06/03/24 13:36 0.9% Saline Lock 10 Ml Syringe IV 20 ml UD PRN Administration SALINE FLUSH [facility] Medical History PTSD (post-traumatic stress disorder) Interstitial cystitis Migraine Diabetes Endometriosis PCOS (polycystic ovarian syndrome) Asthma Anxiety and depression Home Medications ?Medication ?Instructions ?Recorded ?Last Taken ?Type bupropion HCl 150 mg tablet,12 hr 150 mg PO BID DEPRESSION 02/17/16 10/16/18 History sustained-release celecoxib 100 mg capsule 100 mg PO BID 02/17/16 06/02/24 History lorazepam 0.5 mg tablet 0.5 mg PO BID PRN Anxiety 02/17/16 Unknown History cholecalciferol (vitamin D3) 50 50,000 unit PO WE 11/12/17 10/16/18 History mcg (2,000 unit) capsule budesonide-formoterol HFA 160 2 puff inhalation BID PRN Asthma 11/17/18 Unknown History mcg-4.5 mcg/actuation aerosol inhaler fesoterodine 4 mg tablet,extended 4 mg PO DAILY 09/02/19 Unknown History release 24 hr (Toviaz) cetirizine 10 mg capsule 10 mg PO DAILY PRN allergy symptoms 10/23/19 Unknown History nystatin 100,000 unit/gram topical 1 applic topical BID PRN skin folds 10/23/19 Unknown History powder sertraline 100 mg tablet 100 mg PO DAILY 10/23/19 Unknown History hydroxychloroquine 200 mg tablet 200 mg PO BID 08/21/23 06/02/24 History albuterol sulfate 90 mcg/actuation 2 puff inhalation Q4H PRN 06/02/24 Unknown History aerosol inhaler shortness of breath or wheezing amoxicillin 875 mg-potassium 1 tab PO BID 06/02/24 06/02/24 History clavulanate 125 mg tablet cyclobenzaprine 10 mg tablet 10 mg PO TID PRN Muscle Spasm 06/02/24 Unknown History dulaglutide 4.5 mg/0.5 mL 4.5 mg subcut WE 06/02/24 Unknown History subcutaneous pen injector (Trulicity) ferrous sulfate 140 mg (45 mg 140 mg PO BID 06/02/24 Unknown History iron) tablet,extended release (Slow Release Iron) Allergy/AdvReac Type Severity Reaction Status Date / Time nickel Allergy Severe swelling Verified 06/02/24 15:13 cephalexin Allergy Itching Verified 06/02/24 15:13 duloxetine (From Cymbalta) AdvReac Other Verified 06/02/24 15:13 fluoxetine (From Prozac) AdvReac HALLUCINATI Verified 06/02/24 15:13 ONS gabapentin AdvReac headache Verified 06/02/24 15:13 Family History Unknown CVA (cerebral vascular accident) Myocardial infarction Uterine cancer Congestive heart disease Surgical History History of endometrial ablation History of LAVH History of right oophorectomy Encounter for Essure implantation Hx of cholecystectomy delivery delivered Social History Smoking Status: Current some day smoker tobacco type: cigarettes alcohol intake: never substance use type: does not use caffeine: Yes what type of physical activity do you participate in: walking seatbelt use: always do you feel safe at home: Yes 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: - 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
--- NOTE | 2024-06-04 14:05 | PCM.POST.ANE ---
Anesthesia: Postop Eval I Current Vital Signs Temperature: 97.2 F Pulse Rate: 89 Blood Pressure: 90/62 Respiratory Rate: 18 Pulse Ox: 99 Oxygen Delivery Method: Nasal Cannula Oxygen Flow Rate (L/min): 2 Assessment Airway patent: Yes Spontaneous unlabored respirations: Yes Mental status: Asleep nausea: No Vomiting: No Anesthesia Complication: No Fluid Hydration Crystalloid volume administer (ml): 60 Total IV fluid infused: 60 Progress Note Anesthesia document: Postop Eval 1 completed: Yes
--- NOTE | 2024-06-04 15:22 | CHAPLAIN ---
Type of Pastoral Visit ___ Initial Visit ___ Follow-up Visit ___ On-call Visit ___ General Patient Visit ___ Spiritual Assessment ___ Family Conference ___ Bereavement ___ Rapid Response ___ Code Blue ___ Other (describe below) Pastoral Care Referral From ___ Patient ___ Family ___ Nurse ___ Physician ___ Tape Edge Machine Operator ___ Sourcing Internship ___ Other (describe below) Sacrament/Intervention ___ Active listening ___ Anointing ___ Sikhism ___ Bereavement ___ Communion ___ Jessica exploration ___ ___ Life review ___ Prayer ___ Reconciliation ___ Sacrament of Sick ___ Supportive presence ___ Wedding ___ Other (describe below) Pastoral Comments patient and bed were out of the room; left a calling card
[2024-06-04] MEDS: Sodium Ferric Gluconat/Sucrose 250 MG in 0.9% Normal Saline (250mL Bag) 250 ML 135 MG IV (15:48)
--- NOTE | 2024-06-04 16:45 | OP.CCLET_ITS ---
06/04/2024 Misbah Ford [address] [place] [address] Re : Upper GI endoscopy procedure for Guillermina Fadi Dear Dr. Ford This procedure was performed on May. 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 Biopsied. - No gross lesions in the entire stomach. - Normal second portion of the duodenum. Recommendations : - [facility]. - Resume regular diet. - Continue present medications. My findings are described in the full procedure note, which is enclosed. If I can be of further assistance, please feel free to contact me at . Sincerely, Florentin Traylor, 06/04/2024 4:44:29 PM This report has been signed electronically.
--- NOTE | 2024-06-04 16:45 | OP.EGD_ITS ---
Patient Name: Guillermina Aponte Procedure Date: 06/04/2024 1:22 PM Date of : 1985 Age: 39 Procedure: Upper GI endoscopy Indications: Iron deficiency anemia Providers: Florentin Traylor DO Medicines: Monitored Anesthesia Care Patient Profile: This is a 39 year old female. Refer to note in patient chart for documentation of history and physical. Patient has symptoms. Her most recent EGD for ulcer treatment. Complications: No immediate complications. Procedure: Pre-Anesthesia Assessment: - Prior to the procedure, a History and Physical was performed, and patient medications and allergies were reviewed. The patient is competent. The risks and benefits of the procedure and the sedation options and risks were discussed with the patient. All questions were answered and informed consent was obtained. Patient identification and proposed procedure were verified by the physician in the pre-procedure area. Mental Status Examination: alert and oriented. Airway Examination: normal oropharyngeal airway and neck mobility. Respiratory Examination: clear to auscultation. CV Examination: normal. Prophylactic Antibiotics: The patient does not require prophylactic antibiotics. Prior Anticoagulants: The patient has taken no anticoagulant or antiplatelet agents except for NSAID medication. ASA Grade Assessment: II - A patient with mild systemic disease. After reviewing the risks and benefits, the patient was deemed in satisfactory condition to undergo the procedure. The anesthesia plan was to use monitored anesthesia care (MAC). Immediately prior to administration of medications, the patient was re-assessed for adequacy to receive sedatives. The heart rate, respiratory rate, oxygen saturations, blood pressure, adequacy of pulmonary ventilation, and response to care were monitored throughout the procedure. The physical status of the patient was re-assessed after the procedure. After obtaining informed consent, the endoscope was passed under direct vision. Throughout the procedure, the patient's blood pressure, pulse, and oxygen saturations were monitored continuously. The colonoscope was introduced through the mouth, and advanced to the second part of duodenum. The upper GI endoscopy was accomplished without difficulty. The patient tolerated the procedure well. Scope In: 1:36:42 PM Scope Out: 1:40:41 PM Total Procedure Duration Time 0 hours 3 minutes 59 seconds Findings: There were esophageal mucosal changes suggestive of short-segment Rowley's esophagus present in the lower third of the esophagus. The maximum longitudinal extent of these mucosal changes was 2 cm in length. Mucosa was biopsied with a cold forceps for histology in a targeted manner at intervals of 1 cm in the lower third of the esophagus. One specimen bottle was sent to pathology. Verification of patient identification for the specimen was done by the physician. Estimated blood loss was minimal. No gross lesions were noted in the entire examined stomach. The second portion of the duodenum was normal. Impression: - Esophageal mucosal changes suggestive of short-segment Rowley's esophagus. Biopsied. - No gross lesions in the entire stomach. - Normal second portion of the duodenum. Recommendation: - [facility]. - Resume regular diet. - Continue present medications. Procedure Code(s): --- Professional --- 29634, Esophagogastroduodenoscopy, flexible, transoral; with biopsy, single or multiple CPT copyright 2021 [employer]. All rights reserved. The codes documented in this report are preliminary and upon advice clerk review may be revised to meet current compliance requirements. Florentin Traylor DO 06/04/2024 4:44:29 PM This report has been signed electronically. Number of Addenda: 0 Note Initiated On: 06/04/2024 1:22 PM
--- NOTE | 2024-06-04 16:49 | OP.COLON_ITS ---
Patient Name: Guillermina Aponte Procedure Date: 06/04/2024 1:42 PM Date of : 1985 Age: 39 Procedure: Colonoscopy Indications: Iron deficiency anemia Providers: Florentin Traylor DO Medicines: Monitored Anesthesia Care Patient Profile: This is a 39 year old female. Refer to note in patient chart for documentation of history and physical. Patient has symptoms. Her most recent EGD for ulcer treatment. Her most recent colonoscopy (normal). Last Colonoscopy: date unknown. Unable to locate last colonoscopy report. Complications: No immediate complications. Procedure: Pre-Anesthesia Assessment: - Prior to the procedure, a History and Physical was performed, and patient medications and allergies were reviewed. The patient is competent. The risks and benefits of the procedure and the sedation options and risks were discussed with the patient. All questions were answered and informed consent was obtained. Patient identification and proposed procedure were verified by the physician in the pre-procedure area. Mental Status Examination: alert and oriented. Airway Examination: normal oropharyngeal airway and neck mobility. Respiratory Examination: clear to auscultation. CV Examination: normal. Prophylactic Antibiotics: The patient does not require prophylactic antibiotics. Prior Anticoagulants: The patient has taken no anticoagulant or antiplatelet agents except for NSAID medication. ASA Grade Assessment: II - A patient with mild systemic disease. After reviewing the risks and benefits, the patient was deemed in satisfactory condition to undergo the procedure. The anesthesia plan was to use monitored anesthesia care (MAC). Immediately prior to administration of medications, the patient was re-assessed for adequacy to receive sedatives. The heart rate, respiratory rate, oxygen saturations, blood pressure, adequacy of pulmonary ventilation, and response to care were monitored throughout the procedure. The physical status of the patient was re-assessed after the procedure. After I obtained informed consent, the scope was passed under direct vision. Throughout the procedure, the patient's blood pressure, pulse, and oxygen saturations were monitored continuously. The colonoscope was introduced through the anus and advanced to the cecum, identified by appendiceal orifice and ileocecal valve. The colonoscopy was performed with ease. The patient tolerated the procedure well. The quality of the bowel preparation was adequate. The ileocecal valve, the appendiceal orifice and the rectum were photographed. Scope In: 1:43:29 PM Scope Withdrawal Time 0 hours 6 minutes 11 seconds Scope Out: 1:53:33 PM Total Procedure Duration Time 0 hours 10 minutes 4 seconds Findings: The perianal and digital rectal examinations were normal. A few small-mouthed diverticula were found in the sigmoid colon. Stool was found in the rectum, in the recto-sigmoid colon, in the sigmoid colon and in the cecum. The exam was otherwise without abnormality on direct and retroflexion views. Impression: - Diverticulosis in the sigmoid colon. - Stool in the rectum, in the recto-sigmoid colon, in the sigmoid colon and in the cecum. - The examination was otherwise normal on direct and retroflexion views. - No specimens collected. Recommendation: - [facility]. - Resume previous diet today. - Continue present medications. - Repeat colonoscopy because the bowel preparation was suboptimal. Procedure Code(s): --- Professional --- 31211, Colonoscopy, flexible; diagnostic, including collection of specimen(s) by brushing or washing, when performed (separate procedure) CPT copyright 2021 [employer]. All rights reserved. The codes documented in this report are preliminary and upon neurology technologist review may be revised to meet current compliance requirements. Florentin Traylor DO 06/04/2024 4:48:47 PM This report has been signed electronically. Number of Addenda: 0 Note Initiated On: 06/04/2024 1:42 PM
--- NOTE | 2024-06-04 16:49 | OP.CCLET_ITS ---
06/04/2024 Misbah Ford [address] [place] [address] Re : Colonoscopy procedure for Guillermina Aponte Dear Dr. Ford This procedure was performed on May. My impressions and recommendations are as follows: Impressions : - Diverticulosis in the sigmoid colon. - Stool in the rectum, in the recto-sigmoid colon, in the sigmoid colon and in the cecum. - The examination was otherwise normal on direct and retroflexion views. - No specimens collected. Recommendations : - [facility]. - Resume previous diet today. - Continue present medications. - Repeat colonoscopy because the bowel preparation was suboptimal. My findings are described in the full procedure note, which is enclosed. If I can be of further assistance, please feel free to contact me at . Sincerely, Florentin Traylor, 06/04/2024 4:48:47 PM This report has been signed electronically.
[2024-06-04 22:14] LABS: Partial Thromboplast Time 103.3 Seconds (24.1-36.2)
[2024-06-04] MEDS: buPROPion (SR) 150 MG Tablet.SA PO (22:19)
[2024-06-05] VITALS (13 sets, daily range): BP systolic 114–149; BP diastolic 72–98; PULSE 72–116; RESP 13–25; TEMP 36.4–36.9; O2SAT 96–100; BMI 53.8
[2024-06-05] MEDS: HEPARIN/D5w 25,000 UNITS 25,000 UNITS/250 ML IV.SOLN. 15 UNITS CONT INF (02:41)
[2024-06-05] MEDS: Albuterol 2.5 MG/3 ML VIAL.NEB. INHALATION ×3 (06:56→19:12)
[2024-06-05] MEDS: Budesonide Respules 0.5 MG/2 ML AMPUL.NEB. INHALATION ×2 (06:56→19:12)
[2024-06-05 07:14] LABS: Absolute Lymphocyte Count 3.04 X10^3/uL (0.83-4.51); Basophil# 0.06 X10^3/uL; Basophil% 0.5 % (0-1); Eosinophil# 0.34 X10^3/uL; Eosinophils% 2.8 % (0-5); Hematocrit 25.4 % (37-47); Lymphocyte # 3.04 X10^3/ul (0.83-4.51); Lymphocyte % 24.8 % (19-41); Mean Corp Hgb Conc 27.6 g/dL (32-36); Mean Corpuscular Hgb 18.4 pg (27.0-32.0); Mean Corpuscular Volume 66.8 fL (81-99); Mean Platelet Vol. 9.9 fl (6.2-12.0); Monocyte# 0.75 X10^3/uL; Monocyte% 6.1 % (0-10); NRBC Flagged by Analyzer 0.2 % (0-5); Neutrophil # 7.99 X10^3/uL (2.7-7.7); Neutrophil % 65.1 % (47-70); Platelet Count 294 K/mm3 (150-450); RBC Distribution Width CV 17.8 % (11.6-14.6); RBC Distribution Width SD 42.1 fl (35.1-43.9); White Blood Count 12.3 K/mm3 (4.4-11.0)
--- NOTE | 2024-06-05 07:32 | PN.HOSP_ITS ---
Reason for Visit Reason for Visit: Diagnoses Other pulmonary embolism without acute cor pulmonale (06/02/24) Subjective Subjective Patient seen underwent EGD and colonoscopy the day prior. Results are as below. Patient hemoglobin this a.m. is 7.0 did discuss possibility of blood transfusion patient wants to think about it before making a decision Objective Data Objective Data Vital Signs: Vital Signs Temp Pulse Resp BP Pulse Ox O2 Del Method O2 Flow Rate 98.2 F 97 18 120/74 96 Nasal Cannula 2 06/05/24 02:35 06/05/24 02:35 06/05/24 02:35 06/05/24 02:35 06/05/24 02:35 06/05/24 02:50 06/05/24 02:50 Oxygen Flow Rate (L/min) 2 Oxygen Delivery Method Nasal Cannula Weight: 137.8 kg Body Mass Index (BMI) 53.8 Intake & Output: Intake and Output for Last 24 Hours 06/03/24 06/04/24 06/05/24 23:59 23:59 23:59 Intake Total 533.93 / 533.93 964.40 / 964.40 849.25 / 849.25 Balance 533.93 / 533.93 964.40 / 964.40 849.25 / 849.25 Lab / Micro Data 06/05/24 06:25 06/05/24 06:25 Labs: Laboratory Results - last 24 hr 06/04/24 05:20: Blood Type B POSITIVE, Antibody Screen NEGATIVE 06/04/24 21:44: APTT 103.3 H* 06/05/24 06:25: WBC 12.3 H, RBC 3.80 L, Hgb 7.0 L, Hct 25.4 L, MCV 66.8 L, MCH 18.4 L, MCHC 27.6 L, RDW Std Deviation 42.1, RDW Coeff of Anya 17.8 H, Plt Count 294, MPV 9.9, Immature Gran % (Auto) 0.700, Neut % (Auto) 65.1, Lymph % (Auto) 24.8, Johnston % (Auto) 6.1, Eos % (Auto) 2.8, Baso % (Auto) 0.5, Absolute Neuts (auto) 8.0 H, Absolute Lymphs (auto) 3.04, Nucleated RBC % 0.2 Physical Exam Narrative GENERAL: cooperative HEENT: Atraumatic; normocephalic EYES; Anicteric, Normal Conjunctiva NECK; supple, normal thyroid, RESPIRATORY: Diminished to auscultation CARDIOVASCULAR: Regular S1 S2, GI: soft, normoactive bowel sounds, : No Renal angle tenderness; EXTREMITIES: No edema, no clubbing, MUSCULOSKELETAL: no muscle wasting NEURO: Awake; no lateralizing signs. SKIN: No Rash PSYCH; Flat affect Assessment & Plan Assessment/Plan (1) Bilateral pulmonary embolism: PLAN: Plan Patient is a 39-year-old lady who presented with shortness of breath CT obtained demonstrated bilateral pulmonary embolism with right heart strain 1. Acute bilateral pulmonary embolism Bilat PE with acute cor pulmonale ? With right heart strain noted on CT. Patient was found to have elevated troponin as well as BNP. Started on heparin admitted to the intensive care unit consult placed to vascular surgery. Plan is to continue with conservative management with no plans for thrombectomy at this point 2. Anemia ? Complicating care hemoglobin on admission was 9.0 hemoglobin as of 06/03/2024 was 7.9 patient also had microcytosis and elevated RDW consistent with iron deficiency anemia. As part of patient's management iron panel and haptoglobin ordered on admission. Consult was also placed to gastroenterology for possible endoscopic evaluation before committing patient to long-term systemic anticoagulation. Of note patient reports having had hysterectomy in the past ? 06/04/2024; patient iron studies came back consistent with severe iron deficiency anemia. Case was discussed with GI the day prior. Plan is for patient to undergo both upper and lower endoscopic evaluation Colonoscopy; Impressions : - Diverticulosis in the sigmoid colon. - Stool in the rectum, in the recto-sigmoid colon, in the sigmoid colon and in the cecum. - The examination was otherwise normal on direct and retroflexion views. - No specimens collected. Recommendations : - [facility]. - Resume previous diet today. - Continue present medications. - Repeat colonoscopy because the bowel preparation was suboptimal. Upper GI endoscopy Impressions : - Esophageal mucosal changes suggestive of short-segment Rowley's esophagus. Biopsied. - No gross lesions in the entire stomach. - Normal second portion of the duodenum. Recommendations : - [facility] to [facility] for [facility] care. - Resume regular diet. - Continue present medications. ? 06/05/2024 hemoglobin down to 7.0 did discuss with patient about getting transfusion 1 unit PRBC she was to think about it before making a decision. 3. Morbid obesity with BMI of 54.0 ? Complicating care weight loss advised 4. Depression with anxiety ? Patient is on Zoloft and Ativan continue 5. Mild intermittent asthma ? Currently not in exacerbation aerosol treatment as needed Time spent in the patient's overall evaluation,decision-making process, review of diagnostic data, adjustment of management, discussion with other providers, nursing nursing and ancillary staff involved in patient's care documentation, 38 Minutes Charges/Coding Visit Charges Inpatient E&M: 07229 Subs Hosp L2
[2024-06-05 07:37] LABS: Anion Gap 5 (5-15); BUN 11 mg/dL (7-18); BUN/Creat Ratio 10.7 RATIO (10-20); Calcium,Total 8.7 mg/dL (8.5-10.1); Chloride 105 mmol/L (98-107); Creatinine, Serum 1.03 mg/dL (0.55-1.02); EST Glomerular Filtration Rate 64 mL/min (>60); Est Glom Filt Rate - Afr Amer 78 mL/min (>60); Estimated Creatinine Clearance 102.19 ml/min; Glucose 136 mg/dL (74-106); Potassium 3.5 mmol/L (3.5-5.1); Sodium Level 139 mmol/L (136-145)
--- NOTE | 2024-06-05 07:50 | PCM.POSTANE2 ---
Anesthesia Postop Eval I Sum Postop Eval Completion status Anesthesia document: Postop Eval 1 completed: Yes Anesthesia Postop Eval I Summary Anesthesia Postop Eval I Summary: Anesthesia Postop Eval I: Assessment Summary Airway patent Yes 06/04/24 14:06 [email or web address] Spontaneous unlabored Yes 06/04/24 14:06 [email or web address] respirations Mental status Asleep 06/04/24 14:06 [email or web address] nausea No 06/04/24 14:06 [email or web address] Vomiting No 06/04/24 14:06 [email or web address] Anesthesia Postop Eval I: Fluid Summary Crystalloid volume administer 60 06/04/24 14:06 [email or web address] (ml) Colloids volume administered ( ml) Blood Product volume administered (ml) Total IV fluid infused 60 06/04/24 14:06 [email or web address] Anesthesia Postop Eval I: Summary Notes Anesthesia Complication No 06/04/24 14:06 [email or web address] Anesthesia Complication Comment: Post-operative progress note Anesthesia: Postop Eval II Evaluation Mental status: Awake Pain Level: 0 nausea: No Vomiting: No
[2024-06-05 07:59] LABS: Partial Thromboplast Time 99.2 Seconds (24.1-36.2)
[2024-06-05] MEDS: Pantoprazole Sodium 40 MG in 0.9% Normal Saline (100mL MB+) 100 ML 330 MG IV ×2 (09:03→20:41)
[2024-06-05] MEDS: buPROPion (SR) 150 MG Tablet.SA PO ×2 (09:05→20:41)
[2024-06-05] MEDS: Sertraline 100 MG Tablet PO (09:05)
--- NOTE | 2024-06-05 14:30 | NURSING ---
Patient fell off the toilet; rapid response called, see report in chart. Patient lifted per protocol back to bed. EKG and Brain CT completed.
--- NOTE | 2024-06-05 14:30 | EKG12_ITS ---
Test Reason : DYSP Blood Pressure : */* mmHG Vent. Rate : 118 BPM Atrial Rate : 118 BPM P-R Int : 134 ms QRS Dur : 96 ms QT Int : 322 ms P-R-T Axes : 65 55 63 degrees QTcB Int : 451 ms Sinus tachycardia Otherwise normal ECG Confirmed by DANNA TAVAREZ, TONI ([id number]), editor newspaper MARE PERDOMO ([id number]) on 06/09/2024 6:09:44 AM Referred By: MARY Confirmed By: TONI CLAY MD
--- NOTE | 2024-06-05 14:36 | CT_ITS ---
HISTORY: fall. TECHNIQUE: Multiple axial images were obtained of the head without intravenous contrast. A radiation dose optimization technique was used for this scan. 243 images. COMPARISON: MR 01/10/2009. FINDINGS: BRAIN PARENCHYMA: No significant attenuation abnormality. No acute intra-axial hemorrhage. CSF SPACES: Cerebral ventricles, cortical sulci, and other extra-axial CSF spaces within normal limits in size for age. No midline shift or other significant mass effect. No acute extra-axial hemorrhage. OTHER: Intact calvarium. No significant air fluid levels in the paranasal sinuses or mastoid air cells. Unremarkable orbits. CT/Brain/Head without Contrast IMPRESSION: No acute intracranial process identified. Electronically Signed: Dolly Acosta MD at 15:30 EST ,
--- NOTE | 2024-06-05 15:34 | CASEMGMT ---
Patient currently on oxygen. RN CM in to discuss possible need for home oxygen at discharge. Patient states she prefers [employer]. Patient is not sure of additional needs at discharge, will monitor. Patient had no further questions or concerns. Green sheet placed on chart.
[2024-06-05 15:39] LABS: Partial Thromboplast Time 34.9 Seconds (24.1-36.2)
[2024-06-05] MEDS: Heparin Injection (Vial) 5,000 UNIT/ML VIAL IV (16:32)
--- NOTE | 2024-06-05 17:34 | PCM.PN.SRG ---
Subjective Subjective Patient seen at bedside today. She has now been on supplemental O2 at 2 lpm with saturations 99%. She does not feel SOB, no CP. She relates she had a syncopal episode earlier when using the restroom, regained consciousness quickly. Had a negative head CT following this. Her hgb this morning was 7.0, she is going to be receiving 1 unit of blood. She did receive iron infusion yesterday. She did have EGD and colonoscopy yesterday. There were no bleeding lesions identified on EGD. She refused colon prep so no apparent source of bleeding but there was noted stool burden, recommendation was for repeat colonoscopy. Objective Data Objective Data Vital Signs: Vital Signs Temp Pulse Resp BP Pulse Ox O2 Del Method O2 Flow Rate 97.6 F L 112 H 21 H 120/84 H 100 Nasal Cannula 5 06/05/24 16:36 06/05/24 16:36 06/05/24 16:36 06/05/24 16:36 06/05/24 16:36 06/05/24 16:36 06/05/24 16:36 Oxygen Flow Rate (L/min) 5 Oxygen Delivery Method Nasal Cannula Weight: 303 lb 12.752 oz Body Mass Index (BMI) 53.8 Intake & Output: Intake and Output for Last 24 Hours 06/03/24 06/04/24 06/05/24 23:59 23:59 23:59 Intake Total 533.93 / 533.93 964.40 / 964.40 1537.20 / 1537.20 Balance 533.93 / 533.93 964.40 / 964.40 1537.20 / 1537.20 Lab / Micro Data 06/05/24 06:25 06/05/24 06:25 Labs: Laboratory Results - last 24 hr 06/04/24 21:44: APTT 103.3 H* 06/05/24 05:20: Crossmatch See Detail 06/05/24 06:25: WBC 12.3 H, RBC 3.80 L, Hgb 7.0 L, Hct 25.4 L, MCV 66.8 L, MCH 18.4 L, MCHC 27.6 L, RDW Std Deviation 42.1, RDW Coeff of Anya 17.8 H, Plt Count 294, MPV 9.9, Immature Gran % (Auto) 0.700, Neut % (Auto) 65.1, Lymph % (Auto) 24.8, Baker % (Auto) 6.1, Eos % (Auto) 2.8, Baso % (Auto) 0.5, Absolute Neuts (auto) 8.0 H, Absolute Lymphs (auto) 3.04, Nucleated RBC % 0.2, APTT 99.2 H*, Sodium 139, Potassium 3.5, Chloride 105, Carbon Dioxide 29.0, Anion Gap 5, BUN 11, Creatinine 1.03 H, Estim Creat Clear Calc 102.19, Est GFR (MDRD) Af Amer 78, Est GFR (MDRD) Non-Af 64, BUN/Creatinine Ratio 10.7, Glucose 136 H, Calcium 8.7 06/05/24 15:18: APTT 34.9 Radiography Diagnostic Testing: Radiology Impression Brain CT 06/05/24 14:36 IMPRESSION: No acute intracranial process identified. Electronically Signed: Dolly Acosta MD at 15:30 EST , Physical Exam Const alert, oriented x3 and no limitations General Appearance: cooperative HEENT normocephalic, hearing grossly normal bilaterally, external ears normal and external nose normal Head and Scalp: normal to inspection External Ear: external ears normal Eyes PERRL and EOMs intact bilaterally General Eye: normal appearance of both eyes Neck General: normal visual inspection and trachea midline Resp normal respiratory effort, no retractions and no use of accessory muscles Effort and Inspection: able to speak in complete sentences; Negative for labored, grunting or audible wheezes Cardio Rate: tachycardic Rhythm: regular rhythm Extremity Extremity Narrative: BLE 1+, no pain to palpation of bilateral calves, no significant erythema/warmth appreciated Skin no rashes or lesions noted Neuro oriented x3, CN's II-XII intact bilaterally, moves all extremities and no focal motor deficits Speech: speech normal Psych mental status grossly normal Appearance: grossly normal Attitude: calm and engaged Activity / Motor Behavior: appropriate eye contact Speech: normal speech Mood & Affect: euthymic mood Judgement: judgement good Assessment & Plan Assessment/Plan (1) Bilateral pulmonary embolism: PLAN: Hgb 7.0 this morning, down from 7.6 yesterday. She is to receive 1 unit PRBC. She received iron infusion yesterday. She remains on heparin drip. Ideally will continue with anticoagulation for best management of her PE. Will continue to monitor iron-deficiency anemia, no bleeding source yet identified. Charges/Coding Visit Charges Inpatient E&M: 89776 [facility] Hosp L1
[2024-06-05] MEDS: 0.9% Saline Lock 10 ML Syringe IV (20:41)
[2024-06-05 23:24] LABS: Partial Thromboplast Time 92.9 Seconds (24.1-36.2)
[2024-06-06] VITALS (9 sets, daily range): BP systolic 112–134; BP diastolic 73–88; PULSE 86–109; RESP 16–23; TEMP 36.2–37.2; O2SAT 93–100; BMI 54.6
[2024-06-06] MEDS: HEPARIN/D5w 25,000 UNITS 25,000 UNITS/250 ML IV.SOLN. 13 UNITS CONT INF (00:38)
[2024-06-06 06:42] LABS: Absolute Lymphocyte Count 2.55 X10^3/uL (0.83-4.51); Absolute Neutrophil Count 9.7 X10^3/uL (2.0-7.7); Basophil# 0.09 X10^3/uL; Basophil% 0.7 % (0-1); Eosinophil# 0.27 X10^3/uL; Hematocrit 28.5 % (37-47); Hemoglobin 7.9 g/dL (12.0-15.0); Lymphocyte # 2.55 X10^3/ul (0.83-4.51); Lymphocyte % 18.9 % (19-41); Mean Corp Hgb Conc 27.7 g/dL (32-36); Mean Corpuscular Hgb 19.3 pg (27.0-32.0); Mean Corpuscular Volume 69.5 fL (81-99); Mean Platelet Vol. 9.5 fl (6.2-12.0); Monocyte# 0.76 X10^3/uL; Monocyte% 5.6 % (0-10); NRBC Flagged by Analyzer 0.4 % (0-5); Neutrophil % 72.1 % (47-70); Platelet Count 281 K/mm3 (150-450); RBC Distribution Width CV 19.5 % (11.6-14.6); RBC Distribution Width SD 46.2 fl (35.1-43.9); White Blood Count 13.5 K/mm3 (4.4-11.0)
[2024-06-06 07:17] LABS: Anion Gap 6 (5-15); BUN 12 mg/dL (7-18); BUN/Creat Ratio 11.5 RATIO (10-20); Calcium,Total 9.1 mg/dL (8.5-10.1); Chloride 106 mmol/L (98-107); Creatinine, Serum 1.04 mg/dL (0.55-1.02); EST Glomerular Filtration Rate 63 mL/min (>60); Est Glom Filt Rate - Afr Amer 77 mL/min (>60); Estimated Creatinine Clearance 102.19 ml/min; Glucose 141 mg/dL (74-106); Potassium 3.9 mmol/L (3.5-5.1); Sodium Level 140 mmol/L (136-145)
[2024-06-06] MEDS: Albuterol 2.5 MG/3 ML VIAL.NEB. INHALATION ×3 (07:41→19:18)
[2024-06-06] MEDS: Budesonide Respules 0.5 MG/2 ML AMPUL.NEB. INHALATION ×2 (07:41→19:18)
[2024-06-06 07:57] LABS: Partial Thromboplast Time 78.3 Seconds (24.1-36.2)
[2024-06-06] MEDS: Pantoprazole Sodium 40 MG Tablet PO (09:12)
[2024-06-06] MEDS: Sertraline 100 MG Tablet PO (09:12)
[2024-06-06] MEDS: buPROPion (SR) 150 MG Tablet.SA PO ×2 (09:12→22:10)
--- NOTE | 2024-06-06 10:00 | CASEMGMT ---
Social Work SW met w/pt in room in regard to how she has been doing, support offered. SW let pt know that SW here Saturday-Saturday should she need support. SW remains available during hospital stay. GEO Richards
--- NOTE | 2024-06-06 11:37 | PCM.PN.HOSP ---
Reason for Visit Reason for Visit: Diagnoses Other pulmonary embolism without acute cor pulmonale (06/02/24) Subjective Subjective Saw patient at bedside this morning. Patient was sitting up comfortably in bedside chair, in no acute distress. States she continues to have shortness of breath with fairly minimal exertion. Denies any chest pain at rest or with exertion. Denies any right leg pain or swelling. No other acute concerns this morning. Objective Data Objective Data Vital Signs: Vital Signs Temp Pulse Resp BP Pulse Ox O2 Del Method O2 Flow Rate 97.1 F L 96 17 119/85 H 99 Nasal Cannula 2 06/06/24 09:12 06/06/24 09:12 06/06/24 09:12 06/06/24 09:12 06/06/24 09:15 06/06/24 09:15 06/06/24 09:15 Oxygen Flow Rate (L/min) 2 Oxygen Delivery Method Nasal Cannula Weight: 139.9 kg Body Mass Index (BMI) 54.6 Intake & Output: Intake and Output for Last 24 Hours 06/04/24 06/05/24 06/06/24 23:59 23:59 23:59 Intake Total 964.40 / 964.40 2446.50 / 2446.50 97.5 / 97.5 Balance 964.40 / 964.40 2446.50 / 2446.50 97.5 / 97.5 Lab / Micro Data 06/06/24 06:20 06/06/24 06:20 Labs: Laboratory Results - last 24 hr 06/05/24 05:20: Crossmatch See Detail 06/05/24 15:18: APTT 34.9 06/05/24 23:00: APTT 92.9 H* 06/06/24 06:20: WBC 13.5 H, RBC 4.10 L, Hgb 7.9 L, Hct 28.5 L, MCV 69.5 L, MCH 19.3 L, MCHC 27.7 L, RDW Std Deviation 46.2 H, RDW Coeff of Anya 19.5 H, Plt Count 281, MPV 9.5, Immature Gran % (Auto) 0.700, Neut % (Auto) 72.1 H, Lymph % (Auto) 18.9 L, Archer % (Auto) 5.6, Eos % (Auto) 2.0, Baso % (Auto) 0.7, Absolute Neuts (auto) 9.7 H, Absolute Lymphs (auto) 2.55, Nucleated RBC % 0.4, APTT 78.3 H, Sodium 140, Potassium 3.9, Chloride 106, Carbon Dioxide 28.0, Anion Gap 6, BUN 12, Creatinine 1.04 H, Estim Creat Clear Calc 102.19, Est GFR (MDRD) Af Amer 77, Est GFR (MDRD) Non-Af 63, BUN/Creatinine Ratio 11.5, Glucose 141 H, Calcium 9.1 Radiography Diagnostic Testing: Radiology Impression Brain CT 06/05/24 14:36 IMPRESSION: No acute intracranial process identified. Electronically Signed: Dolly Acosta MD at 15:30 EST , Physical Exam Const alert, oriented x3 and no apparent distress Constitutional Narrative: Younger female, class III obesity, sitting up comfortably in bed, conversing normally, in no acute distress. General Appearance: cooperative and comfortable HEENT normocephalic, head/scalp atraumatic, hearing grossly normal bilaterally, nasal mucous membranes and turbinates normal and moist oral mucous membranes Eyes PERRL, EOMs intact bilaterally and conjunctivae normal Neck full ROM Chest inspection of chest normal Resp normal respiratory effort and no use of accessory muscles Resp Narrative: Breathing comfortably on 2 L nasal cannula at rest. Mildly decreased breath sounds bilaterally suspect due to body habitus. No wheezing or crackles noted. Cardio regular rate, regular rhythm, no murmurs and peripheral pulses 2+ throughout GI normal to inspection, nondistended, normoactive bowel sounds, soft to palpation, non-tender and non-distended Back/Spine normal ROM Extremity normal to inspection, full ROM and no pedal edema Skin no rashes or lesions noted Psych mental status grossly normal Psych Narrative: Flat affect. Assessment & Plan Assessment/Plan (1) Bilateral pulmonary embolism: (2) Anemia: PLAN: Plan Patient is a 39-year-old female who presented [facility] ED on 06/02/2024 with worsening shortness of breath. 1. Bilateral PE, intermediate risk, with acute hypoxia; right lower extremity DVT ? Vascular surgery following. CTA chest ordered by outpatient PCP showed bilateral pulmonary emboli with right heart strain. Echo showed EF 60%, severely dilated RV with moderately decreased RV systolic function. Venous Doppler study showed acute DVT in right popliteal vein, tibioperoneal vein and peroneal vein. No clear provoking factor. Started on heparin drip on admission, continue this for now. No intervention needed per vascular surgery. Will plan to transition to a DOAC on discharge. Stable on 2 L nasal cannula currently, wean as able. 2. Severe iron deficiency anemia ? GI following. Hemoglobin 9.0 on admit, MCV 65. Prior baseline from 06-12. Hemoglobin down trended to 7.0 on 06/05. EGD unremarkable. Colonoscopy with diverticulosis noted but prep was suboptimal. S/p transfusion of 1 unit of blood on 06/05 with repeat hemoglobin 7.9. Also received an iron transfusion earlier in admission. Continue to monitor CBC daily. Will need to remain on anticoagulation as noted above. Will discuss with GI on need for repeat colonoscopy during this admission or in the outpatient setting. Chronic medical conditions: ? Class III obesity: BMI 54 on admit. Complicates hospital course, care and prognosis. ? Depression/anxiety: Continue home sertraline and lorazepam as needed. ? Mild intermittent asthma: Stable, not in acute exacerbation. Continue home inhalers as needed. DVT prophylaxis: Not indicated, on heparin drip CODE STATUS: Full code, verified Expected disposition: Home, TBD Total clinical time spent by myself addressing the patient's medical issues, reviewing all the data, and collaborating with patient's care team: 35 minutes. Charges/Coding Visit Charges Inpatient E&M: 17139 Subs Hosp L2
[2024-06-06 12:48] LABS: Partial Thromboplast Time 49.1 Seconds (24.1-36.2)
[2024-06-06] MEDS: Heparin Injection (Vial) 5,000 UNIT/ML VIAL IV (12:54)
[2024-06-06 18:34] LABS: Partial Thromboplast Time 55.6 Seconds (24.1-36.2)
[2024-06-06] MEDS: HEPARIN/D5w 25,000 UNITS 25,000 UNITS/250 ML IV.SOLN. 14 UNITS CONT INF (22:10)
[2024-06-06] MEDS: 0.9% Saline Lock 10 ML Syringe IV (22:19)
[2024-06-07] VITALS (8 sets, daily range): BP systolic 106–130; BP diastolic 72–81; PULSE 88–117; RESP 17–25; TEMP 36.3–37.4; O2SAT 93–98; BMI 55.2
[2024-06-07 00:40] LABS: Partial Thromboplast Time 58.6 Seconds (24.1-36.2)
[2024-06-07 06:25] LABS: Hemoglobin 7.8 g/dL (12.0-15.0); Mean Corp Hgb Conc 27.9 g/dL (32-36); Mean Corpuscular Hgb 19.5 pg (27.0-32.0); Mean Corpuscular Volume 70.2 fL (81-99); Mean Platelet Vol. 9.4 fl (6.2-12.0); Platelet Count 303 K/mm3 (150-450); RBC Distribution Width CV 20.3 % (11.6-14.6); RBC Distribution Width SD 46.9 fl (35.1-43.9); Red Blood Count 3.99 M/mm3 (4.2-5.4); White Blood Count 13.9 K/mm3 (4.4-11.0)
[2024-06-07 06:35] LABS: Scan Indicated on CBC? Y/N YES- FLAGS NOTED
[2024-06-07 07:00] LABS: Partial Thromboplast Time 59.7 Seconds (24.1-36.2)
[2024-06-07] MEDS: Budesonide Respules 0.5 MG/2 ML AMPUL.NEB. INHALATION ×3 (07:27→19:58)
[2024-06-07] MEDS: Albuterol 2.5 MG/3 ML VIAL.NEB. INHALATION ×3 (07:27→19:50)
[2024-06-07 08:06] LABS: Differential Comment SCANNED
[2024-06-07 08:09] LABS: POSITIVE MORPHOLOGY YES
[2024-06-07] MEDS: Pantoprazole Sodium 40 MG Tablet PO (09:28)
[2024-06-07] MEDS: Sertraline 100 MG Tablet PO (09:28)
[2024-06-07] MEDS: buPROPion (SR) 150 MG Tablet.SA PO ×2 (09:28→20:56)
--- NOTE | 2024-06-07 12:09 | PN.HOSP_ITS ---
Reason for Visit Reason for Visit: Diagnoses Anemia, unspecified (06/02/24) Other pulmonary embolism without acute cor pulmonale (06/02/24) Subjective Subjective Saw patient at bedside this morning. Patient appeared similar to yesterday. Was sitting up comfortably in bedside chair, in no acute distress. Was generally fatigued appearing with flat affect noted. Denied any new concerns this morning. Had not gotten up yet to walk for oxygen qualification testing. No other new concerns today. Objective Data Objective Data Vital Signs: Vital Signs Temp Pulse Resp BP Pulse Ox O2 Del Method O2 Flow Rate 98.6 F 101 H 20 H 128/81 H 95 Nasal Cannula 2 06/07/24 09:50 06/07/24 09:50 06/07/24 09:50 06/07/24 09:50 06/07/24 09:50 06/07/24 09:50 06/07/24 09:50 Oxygen Flow Rate (L/min) 2 Oxygen Delivery Method Nasal Cannula Weight: 141.5 kg Body Mass Index (BMI) 55.2 Intake & Output: Intake and Output for Last 24 Hours 06/05/24 06/06/24 06/07/24 23:59 23:59 23:59 Intake Total 2446.50 / 2446.50 1330.00 / 1330.00 100 / 100 Output Total 0 / 0 Balance 2446.50 / 2446.50 1330.00 / 1330.00 100 / 100 Lab / Micro Data 06/07/24 06:15 06/06/24 06:20 Labs: Laboratory Results - last 24 hr 06/05/24 05:20: Crossmatch See Detail 06/06/24 12:12: APTT 49.1 H 06/06/24 18:15: APTT 55.6 H 06/07/24 00:21: APTT 58.6 H 06/07/24 06:15: WBC 13.9 H, RBC 3.99 L, Hgb 7.8 L, Hct 28.0 L, MCV 70.2 L, MCH 19.5 L, MCHC 27.9 L, RDW Std Deviation 46.9 H, RDW Coeff of Anya 20.3 H, Plt Count 303, MPV 9.4, Differential Comment SCANNED, APTT 59.7 H Physical Exam Const alert, oriented x3 and no apparent distress Constitutional Narrative: Younger female, class III obesity, sitting up comfortably in bed, conversing normally, in no acute distress. General Appearance: cooperative and comfortable HEENT normocephalic, head/scalp atraumatic, hearing grossly normal bilaterally, nasal mucous membranes and turbinates normal and moist oral mucous membranes Eyes PERRL, EOMs intact bilaterally and conjunctivae normal Neck full ROM Chest inspection of chest normal Resp normal respiratory effort and no use of accessory muscles Resp Narrative: Breathing comfortably on 2 L nasal cannula at rest. Mildly decreased breath sounds bilaterally suspect due to body habitus. No wheezing or crackles noted. Cardio regular rate, regular rhythm, no murmurs and peripheral pulses 2+ throughout GI normal to inspection, nondistended, normoactive bowel sounds, soft to palpation, non-tender and non-distended Back/Spine normal ROM Extremity normal to inspection, full ROM and no pedal edema Skin no rashes or lesions noted Psych mental status grossly normal Psych Narrative: Flat affect. Assessment & Plan Assessment/Plan (1) Bilateral pulmonary embolism: (2) Anemia: PLAN: Plan Patient is a 39-year-old female who presented [facility] ED on 06/02/2024 with worsening shortness of breath. 1. Bilateral PE, intermediate risk, with acute hypoxia; right lower extremity DVT ? Vascular surgery following. CTA chest ordered by outpatient PCP showed bilateral pulmonary emboli with right heart strain. Echo showed EF 60%, severely dilated RV with moderately decreased RV systolic function. Venous Doppler study showed acute DVT in right popliteal vein, tibioperoneal vein and peroneal vein. No clear provoking factor. No intervention needed per vascular surgery. Started on heparin drip on admission, transitioned to Eliquis on 06/07. Stable on 2 L nasal cannula currently. Will need oxygen tomorrow in preparation for discharge home. 2. Severe iron deficiency anemia ? GI following. Hemoglobin 9.0 on admit, MCV 65. Prior baseline from 06-12. Hemoglobin down trended to 7.0 on 06/05. EGD unremarkable. Colonoscopy with diverticulosis noted but prep was suboptimal. S/p transfusion of 1 unit of blood on 06/05 with repeat hemoglobin 7.9. Also received an iron transfusion earlier in admission. Hemoglobin remained stable around 8 on 06/07. Per GI, will plan for repeat colonoscopy in the outpatient setting, is not needed during this admission. If CBC remains stable tomorrow, patient will be okay for discharge home. Chronic medical conditions: ? Class III obesity: BMI 54 on admit. Complicates hospital course, care and prognosis. ? Depression/anxiety: Continue home sertraline and lorazepam as needed. ? Mild intermittent asthma: Stable, not in acute exacerbation. Continue home inhalers as needed. DVT prophylaxis: Not indicated, on Eliquis CODE STATUS: Full code, verified Expected disposition: Home, 1-2 days Total clinical time spent by myself addressing the patient's medical issues, reviewing all the data, and collaborating with patient's care team: 35 minutes. Charges/Coding Visit Charges Inpatient E&M: 11070 Subs Hosp L2
[2024-06-07] MEDS: 0.9% Saline Lock 10 ML Syringe IV (17:00)
[2024-06-07] MEDS: APIXABAN 5 MG TABLET PO (17:00)
[2024-06-08 03:00] VITALS: BP 136/90; PULSE 93; RESP 20; TEMP 36.3; O2SAT 97
[2024-06-08 04:52] VITALS: BMI 54.8
[2024-06-08 07:20] VITALS: PULSE 105; RESP 20; O2SAT 93
[2024-06-08] MEDS: Albuterol 2.5 MG/3 ML VIAL.NEB. INHALATION ×2 (07:20→13:19)
[2024-06-08] MEDS: Budesonide Respules 0.5 MG/2 ML AMPUL.NEB. INHALATION (07:20)
--- NOTE | 2024-06-08 09:45 | PN.HOSP_ITS ---
Reason for Visit Reason for Visit: Diagnoses Anemia, unspecified (06/02/24) Other pulmonary embolism without acute cor pulmonale (06/02/24) Subjective Subjective Feeling well. No shortness of breath. Objective Data Objective Data Vital Signs: Vital Signs Temp Pulse Resp BP Pulse Ox O2 Del Method O2 Flow Rate 36.3 C L 93 20 H 136/90 H 97 Room Air 2 06/08/24 03:00 06/08/24 03:00 06/08/24 03:00 06/08/24 03:00 06/08/24 03:00 06/08/24 08:07 06/08/24 03:00 Oxygen Flow Rate (L/min) 2 Oxygen Delivery Method Room Air Weight: 140.3 kg Body Mass Index (BMI) 54.8 Intake & Output: Intake and Output for Last 24 Hours 06/06/24 06/07/24 06/08/24 23:59 23:59 23:59 Intake Total 1330.00 / 1330.00 1230 / 1730 500 / 500 Output Total 0 / 0 Balance 1330.00 / 1330.00 1230 / 1730 500 / 500 Lab / Micro Data 06/07/24 06:15 06/06/24 06:20 Physical Exam Const alert and no apparent distress HEENT head/scalp atraumatic and moist oral mucous membranes Psych Psych Narrative: flat affect. Assessment & Plan Assessment/Plan (1) Bilateral pulmonary embolism: (2) Anemia: PLAN: Plan Bilateral PE, intermediate risk, with acute hypoxia; right lower extremity DVT * medical mgmt. No surgery. Vascular surgery consulted. * CTA chest ordered by outpatient PCP showed bilateral pulmonary emboli with right heart strain. * Echo showed EF 60%, severely dilated RV with moderately decreased RV systolic function. * Venous Doppler study showed acute DVT in right popliteal vein, tibioperoneal vein and peroneal vein. No clear provoking factor. No intervention needed per vascular surgery. * Started on heparin drip on admission, transitioned to Eliquis on 06/07. No oxygen needed upon discharge. * Follow up with hematology. Pt's father had VTE. Severe iron deficiency anemia * GI following. * EGD showed Rowley's esophagus. Colonoscopy with diverticulosis noted but prep was suboptimal. Per GI, will plan for repeat colonoscopy in the outpatient setting, is not needed during this admission. I * S/p transfusion of 1 unit of blood on 06/05 with repeat hemoglobin 7.9. * Also received iron sucrose on 06/04. Will readminister . * Already taking iron at baseline * Follow up with GI and hematology. Pt is s/p hysterectomy Chronic medical conditions: ? Class III obesity: BMI 54 on admit. Complicates hospital course, care and prognosis. ? Depression/anxiety: Continue home sertraline and lorazepam as needed. ? Mild intermittent asthma: Stable, not in acute exacerbation. Continue home inhalers as needed. DVT prophylaxis: Not indicated, on Eliquis CODE STATUS: Full code, verified Expected disposition: Home, 1-2 days
[2024-06-08 10:09] VITALS: BP 133/84; PULSE 107; RESP 18; TEMP 36.9; O2SAT 96
[2024-06-08] MEDS: FLU VACC 2024-25(6MOS UP)/PF 45 MCG/0.5 ML SYRINGE IM (10:12)
[2024-06-08] MEDS: APIXABAN 5 MG TABLET PO (10:12)
[2024-06-08] MEDS: buPROPion (SR) 150 MG Tablet.SA PO (10:13)
[2024-06-08] MEDS: Pantoprazole Sodium 40 MG Tablet PO (10:13)
[2024-06-08] MEDS: Sertraline 100 MG Tablet PO (10:15)
[2024-06-08 13:43] VITALS: O2SAT 90; O2SAT 95
[2024-06-08] MEDS: Sodium Ferric Gluconat 250 MG in 0.9% Normal Saline 250 ML 135 MG IV (13:43)
[2024-06-08] MEDS: 0.9% Saline Lock 10 ML Syringe IV (13:43)
[2024-06-08 15:22] VITALS: BP 141/77; PULSE 102; RESP 16; TEMP 36.9; O2SAT 95
--- NOTE | 2024-06-08 15:31 | CHAPLAIN ---
Type of Pastoral Visit _x__ Initial Visit ___ Follow-up Visit ___ On-call Visit ___ General Patient Visit ___ Spiritual Assessment ___ Family Conference ___ Bereavement ___ Rapid Response ___ Code Blue ___ Other (describe below) Pastoral Care Referral From _x__ Patient ___ Family ___ Nurse ___ Physician ___ Fuse Spooler ___ Patch Sander ___ Other (describe below) Sacrament/Intervention _x__ Active listening ___ Anointing ___ Nondenominational ___ Bereavement ___ Communion ___ Jessica exploration ___ ___ Life review _x__ Prayer ___ Reconciliation ___ Sacrament of Sick _x__ Supportive presence ___ Wedding ___ Other (describe below) Pastoral Comments patient is offered support and is asked questions to begin a conversation; pt answers questions simply and does not engage in a conversation; pt states that she has no needs but if you want to say a prayer that is fine;
--- NOTE | 2024-06-08 15:52 | DS.PCM_ITS ---
Providers Date of Admission: 06/02/24 Primary Care Physician: Dr. Misbah Ford, Consultations 06/02/24 18:05 Consult: Oil Inspector / Pulmonary Medicine Routine Consulting Provider: Intensivists/Pulmonary Med Reason for Consult: PE right heart strain EMERGENT Consult: No Notified: Yes Date Notified: 06/02/24 Time Notified: 17:53 Method of Notification: ED Physician Initiated Consult: Vascular Surgery Routine Consulting Provider: Joe Streeter Reason for Consult: large PE R heart strain EMERGENT Consult: No MD Notified: Yes Date Notified: 06/02/24 Time Notified: 17:53 Method of Notification: ED Physician Initiated 06/03/24 08:53 Consult: Gastroenterology Routine Consulting Provider: [facility] Reason for Consult: anemia EMERGENT Consult: No Notified: Yes Date Notified: 06/03/24 Time Notified: 08:54 Method of Notification: Text Reason For Visit: BILATERAL PULMONARY EMBOLUS W/ HEART STRAIN Diagnosis Discharge Diagnosis (1) Bilateral pulmonary embolism: Status: Acute Code(s): I26.99 - Other pulmonary embolism without acute cor pulmonale (2) Anemia: Status: Acute Code(s): D64.9 - Anemia, unspecified Plan Bilateral PE, intermediate risk, with acute hypoxia; right lower extremity DVT * medical mgmt. No surgery. Vascular surgery consulted. * CTA chest ordered by outpatient PCP showed bilateral pulmonary emboli with right heart strain. * Echo showed EF 60%, severely dilated RV with moderately decreased RV systolic function. * Venous Doppler study showed acute DVT in right popliteal vein, tibioperoneal vein and peroneal vein. No clear provoking factor. No intervention needed per vascular surgery. * Started on heparin drip on admission, transitioned to Eliquis on 06/07. No oxygen needed upon discharge. * Follow up with hematology. Pt's father had VTE. Severe iron deficiency anemia * GI following. * EGD showed Rowley's esophagus. Colonoscopy with diverticulosis noted but prep was suboptimal. Per GI, will plan for repeat colonoscopy in the outpatient setting, is not needed during this admission. I * S/p transfusion of 1 unit of blood on 06/05 with repeat hemoglobin 7.9. * Also received iron sucrose on 06/04. Will readminister . * Already taking iron at baseline * Follow up with GI and hematology. Pt is s/p hysterectomy Chronic medical conditions: ? Class III obesity: BMI 54 on admit. Complicates hospital course, care and prognosis. ? Depression/anxiety: Continue home sertraline and lorazepam as needed. ? Mild intermittent asthma: Stable, not in acute exacerbation. Continue home inhalers as needed. DVT prophylaxis: Not indicated, on Eliquis CODE STATUS: Full code, verified Expected disposition: Home, 1-2 days Medications at Discharge Home Medications bupropion HCl 150 mg tablet,12 hr sustained-release 150 mg PO BID DEPRESSION 02/17/16 lorazepam 0.5 mg tablet 0.5 mg PO BID PRN Anxiety 02/17/16 cholecalciferol (vitamin D3) 50 mcg (2,000 unit) capsule 50,000 unit PO WE 11/12/17 budesonide-formoterol HFA 160 mcg-4.5 mcg/actuation aerosol inhaler 2 puff inhalation BID PRN Asthma 11/17/18 fesoterodine 4 mg tablet,extended release 24 hr (Toviaz) 4 mg PO DAILY 09/02/19 cetirizine 10 mg capsule 10 mg PO DAILY PRN allergy symptoms 10/23/19 nystatin 100,000 unit/gram topical powder 1 applic topical BID PRN skin folds 10/23/19 sertraline 100 mg tablet 100 mg PO DAILY 10/23/19 hydroxychloroquine 200 mg tablet 200 mg PO BID 08/21/23 albuterol sulfate 90 mcg/actuation aerosol inhaler 2 puff inhalation Q4H PRN shortness of breath or wheezing 06/02/24 cyclobenzaprine 10 mg tablet 10 mg PO TID PRN Muscle Spasm 06/02/24 dulaglutide 4.5 mg/0.5 mL subcutaneous pen injector (Trulicity) 4.5 mg subcut WE 06/02/24 ferrous sulfate 140 mg (45 mg iron) tablet,extended release (Slow Release Iron) 140 mg PO BID 06/02/24 apixaban 5 mg tablet (Eliquis) 5 mg PO BID #90 tabs 06/08/24 pantoprazole 40 mg tablet,delayed release 40 mg PO DAILY #30 tabs 06/08/24 Hospital Course Operations None Procedures 2-D Echocardiogram Summary of Care Provided Minutes Spent on Discharge: 32 Hospital Course: Patient presents with shortness of breath. She was found to have PE as well as right heart strain. Echo shows an EF of 60% with no diastolic dysfunction and severely dilated right ventricle. Patient was started on heparin drip. Eventually transition over to apixaban. Her course was uncomplicated fortunately. Patient was noted to be anemic. Patient is status post hysterectomy. She did undergo an EGD that showed Rowley's esophagus and colonoscopy with suboptimal prep but did show diverticulosis. Patient has chronic anemia to which she takes iron chronically. Patient advised to follow- up with GI to have another colonoscopy with a better prep and then follow-up with hematology. Hematology is to follow-up for the anemia but also for her PE. Patient states that her father had a history of VTE and so there be concern for a hypercoagulable state that the patient may experience that she has had no obvious risk factors that led to these pulmonary emboli. Weight / BMI Weight Weight: 140.3 kg Body Mass Index (BMI) 54.8 ABG / Lab / Microbiology Data 06/07/24 06:15 06/06/24 06:20 D/C Instructions Discharge Diet: No restrictions DC O2, CPAP, BIPAP Needs RN Home O2 Qualification: Home O2 Qualification: Is the patient on home oxygen No 06/08/24 13:43 Home O2 Qualification: AT REST 1- Pulse Ox at rest 95 06/08/24 13:43 Home O2 Qualification: WITH AMBULATION 1- Pulse Ox with ambulation 90 06/08/24 13:43 1- Oxygen Flow Rate with 0 06/08/24 13:43 ambulation Additional Home O2 Discharge instructions: No DC home with Oxygen: No Meaningful Use Info Meaningful Use Meaningful Use Diagnoses (Choose all that apply): None applicable Ischemic Stroke Statin Dosing Therapy Reference: STATIN DOSE THERAPY REFERENCE: * Patients > 75 years receive moderate or high dose statin therapy. * Patients 75 years or YOUNGER should receive HIGH intensity statin dose unless contraindicated. You will be required to document reason for non-treatment if statin daily dose does not meet guidelines. HIGH DOSE STATIN THERAPY DAILY Atorvastatin > than or = to 40 mg Rosuvastatin > than or = to 20 mg Amlodipine + Atorvastatin > than or = to 2.5/40 mg Ezetimibe + Simvastatin 10/80 mg Simvastatin 80mg Discharge Plan Admission Admit Date/Time: 06/02/24 17:51 Primary Reason for Your Visit: Pulmonary emboli Attending Provider: Joe Bragg Primary Care Provider: Misbah Ford Consulting Providers: Qing Love; Joe Streeter; Jose Phelps; Giancarlo Parada Instructions Additional Instructions / Restrictions: You had pulmonary emboli in your lung, which are blood clots. You will need to be on blood thinners for at least 6 months but possibly longer. I recommend that you follow-up with hematology to see if you have a coagulation problem that makes you at risk for further clots if you are not on blood thinners. I would be concerned about that being that your father had this similar problem. Also recommend that you follow-up with hematology for your anemia. He did undergo scope into your stomach which showed some inflammation of your esophagus but also showed some diverticuli of your colon. Diverticuli can be a source of bleeding. Unfortunately your colonoscopy prep was not great so you will need to have that redone as an outpatient. Discharge Orders/Prescriptions Prescriptions: New pantoprazole 40 mg Tablet,Delayed Release (Dr/Ec) 40 mg PO DAILY Qty: 30 0RF Eliquis 5 mg tablet 5 mg PO BID Qty: 90 0RF Rx Instructions: 2 tabs twice daily for 1 week, then 1 tab twice daily thereafter. Continued Toviaz 4 mg tablet extended release 24 hr 4 mg PO DAILY Patient Comments: PT HAS BEEN OUT OF IT FOR ABOUT 2 WEEKS hydroxychloroquine 200 mg tablet 200 mg PO BID bupropion HCl 150 MG tablet sustained-release 12 hr 150 mg PO BID lorazepam 0.5 MG tablet 0.5 mg PO BID PRN (Reason: Anxiety) cholecalciferol (vitamin D3) 2,000 UNIT capsule 50,000 unit PO WE budesonide-formoterol 1 INHALER inhaler 2 puff inhalation BID PRN (Reason: Asthma) sertraline 100 MG tablet 100 mg PO DAILY cetirizine 10 MG capsule 10 mg PO DAILY PRN (Reason: allergy symptoms) nystatin 1 APPLIC bottle 1 applic topical BID PRN (Reason: skin folds) Rx Instructions: apply BID to the abdominal pannus Trulicity 4.5 mg/0.5 mL pen injector 4.5 mg subcut WE albuterol sulfate 90 mcg/actuation HFA aerosol inhaler 2 puff INHALATION Q4H PRN (Reason: shortness of breath or wheezing) Slow Release Iron 140 mg (45 mg iron) tablet extended release 140 mg PO BID cyclobenzaprine 10 mg tablet 10 mg PO TID PRN (Reason: Muscle Spasm) Discontinued celecoxib 100 MG capsule 100 mg PO BID amoxicillin-pot clavulanate 875-125 mg tablet 1 tab PO BID Rx Instructions: START DATE- 05/25/24 END DATE- 06/04/24 Referrals / Follow Up: [facility] [Provider Group] - Within 3 Months *[facility] [Provider Group] - Within 1 Month Misbah Ford DO [Primary Care Provider] - Within 2 Weeks Disposition Disposition (needs filled in before D/C Order can be placed): Home, Self Care Charges/Coding Visit Charges Inpatient E&M: 20076 Disch Hosp >30min
[2024-06-08 15:59] VITALS: BP 141/77; PULSE 102; RESP 16; TEMP 36.9; O2SAT 95
--- NOTE | 2024-06-08 16:12 | CASEMGMT ---
Patient has order for discharge. Patient is discharging home on Eliquis, RN CM called [facility] and copay is $0. Patient did not qualify for home oxygen. RN CM in to discuss needs at discharge. Patient denies needs or help at discharge. Patient had no further questions or concerns.
== END 2024-06-08 17:47 | disposition home or self-care (01) | DRG 134 ==
LOC: ED 16:30 → ICU 17:59 → PCU 06-03 15:50
PROVIDERS: Anesthesiology; Hospitalist; Internal Medicine; Internal Medicine Critical Care Medicine; Internal Medicine Gastroenterology; Admitting Provider Internal Medicine; Emergency Provider Emergency Medicine; PCP Student in an Organized Health Care Education/Training Program
PROC: 0DJ08ZZ Inspection of Upper Intestinal Tract, Via Natural or Artificial Opening Endoscopic (ICD-10-PCS; CPT 43235; principal; 2024-06-04 12:55)
DX: I26.09 Other pulmonary embolism with acute cor pulmonale (principal); Z68.43 Body mass index [BMI] 50.0-59.9, adult; I82.431 Acute embolism and thrombosis of right popliteal vein; E11.9 Type 2 diabetes mellitus without complications; D50.9 Iron deficiency anemia, unspecified; I82.441 Acute embolism and thrombosis of right tibial vein; F32.A Depression, unspecified; J45.20 Mild intermittent asthma, uncomplicated; I10 Essential (primary) hypertension; E66.01 Morbid (severe) obesity due to excess calories; E28.2 Polycystic ovarian syndrome; K22.70 Barrett's esophagus without dysplasia; F41.9 Anxiety disorder, unspecified; F17.210 Nicotine dependence, cigarettes, uncomplicated; G47.33 Obstructive sleep apnea (adult) (pediatric); K57.30 Diverticulosis of large intestine without perforation or abscess without bleeding; I82.451 Acute embolism and thrombosis of right peroneal vein; M79.7 Fibromyalgia; E78.5 Hyperlipidemia, unspecified; R09.02 Hypoxemia; R55 Syncope and collapse; N80.9 Endometriosis, unspecified; R00.0 Tachycardia, unspecified; Z88.1 Allergy status to other antibiotic agents; Z82.49 Family history of ischemic heart disease and other diseases of the circulatory system; Z23 Encounter for immunization; Z53.20 Procedure and treatment not carried out because of patient's decision for unspecified reasons; Z79.85 Long-term (current) use of injectable non-insulin antidiabetic drugs; Z79.899 Other long term (current) drug therapy; Z90.49 Acquired absence of other specified parts of digestive tract; Z90.710 Acquired absence of both cervix and uterus
CPT/HCPCS: 36415; 70450; 80048; 80076; 81025; 82607; 82728; 83010; 83540; 83550; 83605; 83615; 83735; 83880; 84100; 84484; 85014; 85018; 85025; 85027; 85045; 85610; 85730; 86850; 86900; 86901; 86920; 88305; 88312; 88341; 88342; 90656; 93005; 93306; 93970; 94640; 94762; 99285; J7040; J7050; P9016; Q9957; A4216; C8929; J2405; J2916